=== PATIENT | female | born 1960 | race Caucasian/White ===

== ENCOUNTER → 2016-03-27 | Outpatient (CLI) | payer OTHER ==
[~2016-03-27] MED LIST: AMT100 PO; CALC600T9 PO; CPROT OTR; DOCU100C31 PO; GABA-113 PO; IBUP-1277 PO; LACT10SO17 PO; LIRA18IN SQ; LISI5TAB3 PO; METF1000 PO; MULTTAB58 PO; NADO20TA PO; NAPR1TAB9 PO; NUTR1TAB PO; NYST80OI TOP; OMEG1CAP81 PO; OMEP40CA PO; POTA2TAB2 PO; SIMV10TA2 PO; TAPE1TAB10 PO; TRAM-10 PO; TURM1CAP4 PO
[2016-03-27 17:25] LABS: BASO % 0.4 %; BASO ABS # 0.02 K/uL (0-0.2); COMPLETE YES; EOS % 1.4 %; HEMATOCRIT 35.3 % (37-47); IG% 0.2 %; LYMPH % 20.7 %; LYMPH ABS # 1.16 K/uL (1.2-3.4); MEAN CELL VOLUME 90.5 fL (80-100); MEAN CORPUSCULAR HEMOGLOBIN 31.3 pg (25-34); MEAN CORPUSCULAR HGB CONC 34.6 g/dl (32-36); MEAN PLATELET VOLUME 10.3 fL (7.4-10.4); MONO % 5.9 %; NEUT % 71.4 %; PLATELET COUNT 120 K/uL (130-400)
== END | disposition home or self-care (01) ==
LOC: C.LABPVFM 14:38
PROVIDERS: ATTEND Nurse Practitioner
DX: D64.9 Anemia, unspecified (principal)

== ENCOUNTER → 2016-04-28 | Outpatient (CLI) | payer OTHER ==
[2016-04-28 13:16] LABS: ALB/GLOB RATIO 0.4 (0.9-2); ALT/SGPT 44 U/L (12-78); AST/SGOT 29 U/L (15-37); BLOOD UREA NITROGEN 8 mg/dl (7-18); BUN/CREATININE RATIO 11.9 (10-20); CALCIUM 8.7 mg/dl (8.5-10.1); CARBON DIOXIDE 27 mmol/L (21-32); CHLORIDE 105 mmol/L (98-107); CREATININE 0.64 mg/dl (0.60-1.20); GLUCOSE 136 mg/dl (70-99); POTASSIUM 3.9 mmol/L (3.5-5.1); SODIUM 141 mmol/L (136-145)
[2016-04-28 13:17] LABS: ALKALINE PHOSPHATASE 273 U/L (45-117); CHOLESTEROL 113 mg/dl (0-200); CHOLESTEROL/HDL RATIO 2.5; HDL CHOLESTEROL 45 mg/dl; LDL CHOLESTEROL CALCULATED 54 mg/dl; TRIGLYCERIDES 70 mg/dl (0-150); VERY LOW DENSITY LIPOPROT CALC 14 mg/dl
[2016-04-28 13:31] LABS: ESTIMATED AVERAGE GLUCOSE 154 mg/dl; HA1C FLAG Normal (Normal)
== END | disposition home or self-care (01) ==
LOC: C.LABPVFM 09:07
PROVIDERS: ATTEND Nurse Practitioner
DX: Z86.39 Personal history of other endocrine, nutritional and metabolic disease (principal); E11.9 Type 2 diabetes mellitus without complications; I10 Essential (primary) hypertension

== ENCOUNTER → 2016-05-04 | Outpatient (CLI) | payer OTHER | END | disposition home or self-care (01) | LOC: C.LABPVFM 09:58 | PROVIDERS: ATTEND Nurse Practitioner | DX: D47.2 Monoclonal gammopathy (principal); R53.83 Other fatigue; E53.8 Deficiency of other specified B group vitamins ==

== ENCOUNTER → 2016-10-04 | Outpatient (CLI) | payer OTHER | END | disposition home or self-care (01) | LOC: C.LABPVFM 15:20 | PROVIDERS: ATTEND Nurse Practitioner | DX: D47.2 Monoclonal gammopathy (principal); R53.83 Other fatigue; E53.8 Deficiency of other specified B group vitamins ==

== ENCOUNTER → 2017-01-17 | Day surgery (SDC) | payer OTHER ==
[2017-01-09 12:55] VITALS: Ht 170.2 cm; Wt 88.2 kg
[~2017-01-17] VITALS: Ht 170.2 cm; Wt 88.2 kg
[~2017-01-17] MED LIST changes: +BEE POLLEN PO; -CPROT OTR; +FENTANYL CITRATE INJ 50 MCG/1 ML 2 ML VIAL ONE; -IBUP-1277 PO; -LACT10SO17 PO; +LIDOCAINE HCL 2% 2 ML VIAL (20MG/ML) ONE; +LIRA18IN PO; -LIRA18IN SQ; -LISI5TAB3 PO; +MIDAZOLAM HCL 1 MG/ML 2ML VIAL ONE; -NADO20TA PO; -NAPR1TAB9 PO; -NUTR1TAB PO; -NYST80OI TOP; -OMEG1CAP81 PO; +OMEGCAP2 PO; -OMEP40CA PO; +OMEP40CA41 PO; -POTA2TAB2 PO; +POTAPOW29 PO; +PROPOFOL IV EMULSION 10 MG/ML 20 ML VIAL IV ONE; -SIMV10TA2 PO; +SODIUM CHLORIDE 0.9% 500ML 500 ML IV ONE; -TAPE1TAB10 PO; +TAPE1TAB11 PO; -TURM1CAP4 PO
--- NOTE | 2017-01-17 09:16 | Endo History and Physical ---
History & Physical Date of Service: Jan 17, 2017. Chief Complaint: Referring Physician: History of Present Illness 63 yo presenting for f/u of NAFLD cirrhosis for esophageal evaluation-mildly intolerant to beta blockers Past Medical History Atrial Fibrillation, Diabetes, Gastrointestinal Disorder, Reflux, Gynecological Problems, High Cholesterol, Heart Disease, Hypertension, Thyroid Disease, Liver Disease Past Surgical History Hx Cardiac Surgery: Yes (CARDIAC ABLATION, HEART CATH NO STENT) Hx Internal Defibrillator: No Hx Pacemaker: No Hx Abdominal Surgery: Yes (LAPAROSCOPIES, [place] BSO) Hx of Implantable Prosthesis: No Hx Post-Op Nausea and Vomiting: No Hx Cancer Surgery: No Hx Thoracic Surgery: No Hx Orthopedic: No Hx Urinary Tract Surgery: No Family History None Social History Smoking Status: Former Smoker Hx Substance Use: Yes (SEE MED REC) Hx Alcohol Use: No Allergies Coded Allergies: Diltiazem (Verified Allergy, Unknown, rash- per GI/heme/onc note, 01/09/17) Latex1 -Allergic Contact Dermititis (Verified Allergy, Unknown, ITCHY NOSE WATERY EYES., 01/09/17) Sulfa Antibiotics (Verified Allergy, Unknown, SOB, erythema , 01/09/17) Eggs or Egg-derived Products (Verified Adverse Reaction, Mild, occasionally has GI upset , 01/09/17) Adhesives (Verified Adverse Reaction, Unknown, TAPE-REDNESS, 01/09/17) Current Medications Reported Home Medications Medications Dose Route/Sig Max Daily Dose Days Date Category Dose Instructions Nucynta Er (Tapentadol Hcl) 150 Mg Tab 1 Tab PO BID 01/09/17 Reported [Potassium Gluconate] 1 Tab PO HS 01/09/17 Reported Prilosec (Omeprazole) 40 Mg Cap 40 Mg PO QAM 01/09/17 Reported Fish Oil ([place]-3 Fatty Acids) 1 Cap Cap 1 Cap PO QAM 01/09/17 Reported [Bee Pollen] 2 Cap PO QAM 01/09/17 Reported Victoza (Liraglutide) 18 Mg/3 Ml Inj 1.5 Mg PO QPM 01/09/17 Reported Docusate Sodium 100 Mg Cap 2 Cap PO HS PRN 01/17/15 Reported Multivitamin (Multiple Vitamin) 1 Tab Tab 1 Tab PO QAM 01/17/15 Reported Calcium + D (Calcium Carbonate-Vitamin D) 1 Tab Tab 1 Tab PO HS 01/17/15 Reported Ultram (Tramadol HCl) 50 Mg Tab 100 Mg PO HS PRN 11/24/14 Reported Amitriptyline HCl 100 Mg Tab 100 Mg PO HS 11/02/14 Reported Neurontin (Gabapentin) 300 Mg Cap 600 Mg PO HS 11/02/14 Reported Neurontin (Gabapentin) 300 Mg Cap 300 Mg PO BID 02/22/14 Reported TAKE 1 IN MORNING AND 1 AT NOON Glucophage (Metformin Hcl) 1,000 Mg Tab 1,000 Mg PO BID 11/28/11 Reported Vital Signs Weight (Kilograms): 88.18 Height (Feet): 5 Height (Inches): 7 Physical Exam General Appearance: WD/WN, no apparent distress Respiratory/Chest: Respiratory effort: no dyspnea Auscultation: breath sounds normal Cardiovascular: Apical Impulse: not displaced Heart Auscultation: RRR, normal S1 Abdomen: Bowel Sounds: normal Inspection & Palpation: soft, non-distended Assessment and Plan 56 yo presenting for EGD for variceal evaluation-possible banding
[2017-01-17 09:17] VITALS: TEMP 36.9
--- NOTE | 2017-01-17 10:33 | Anesthesiology Progress Note ---
Anesthesia Post Op Note Date & Time Jan 17, 2017 at 10:33 Vital Signs Pain Intensity: 0 Vital Signs Past 12 Hours Date Time Temp Pulse Resp B/P (MAP) Pulse Ox O2 Delivery O2 Flow Rate FiO2 01/17/17 10:22 67 13 115/75 (88) 95 Mask 10 01/17/17 09:17 36.9 78 20 143/87 (105) 98 Room Air Notes Mental Status: alert / awake / arousable, participated in evaluation Pt Amnestic to Procedure: Yes Nausea / Vomiting: adequately controlled Pain: adequately controlled Airway Patency, RR, SpO2: stable & adequate BP & HR: stable & adequate Hydration State: stable & adequate Anesthetic Complications: no major complications apparent
--- NOTE | 2017-01-17 10:50 | GI REPORT ---
Procedure Date: 01/17/2017 9:52 AM Procedure: Upper GI endoscopy Indications: Cirrhosis with suspected esophageal varices Medicines: General Anesthesia Complications: No immediate complications. Estimated blood loss: None. Estimated Blood Loss: Estimated blood loss: none. Procedure: Pre-Anesthesia Assessment: - Pre-Anesthesia Assessment: - Prior to the procedure, a History and Physical was performed, and patient medications, allergies and sensitivities were reviewed. The patient's tolerance of previous anesthesia was reviewed. Please see [email or web address] for complete details. - The risks and benefits of the procedure and the sedation options and risks were discussed with the patient. All questions were answered and informed consent was obtained. - Patient identification and proposed procedure were verified prior to the procedure by the physician and the nurse. The procedure was verified in the pre-procedure area in the procedure room. After obtaining informed consent, the endoscope was passed carefully and meticuously under direct vision and only advanced when the lumen was clearly identified, C02 insuflation was utilized throughout the entirity of the procedure. Throughout the procedure, the patient's blood pressure, pulse, and oxygen saturations were monitored continuously. After obtaining informed consent, the endoscope was passed under direct vision. Throughout the procedure, the patient's blood pressure, pulse, and oxygen saturations were monitored continuously. The scope was introduced through the mouth, and advanced to the second part of duodenum. The upper GI endoscopy was accomplished without difficulty. The patient tolerated the procedure well. Findings: Large (> 5 mm) varices were found in the middle third of the esophagus and in the lower third of the esophagus. Banding was going to be performed, however, she had thick milkshake consistency in the upper esophags and oropharynx, due to aspiration risk procedure was aborted. Portal hypertensive gastropathy was found in the entire examined stomach. The examined duodenum was normal. Impression: - Large (> 5 mm) esophageal varices. - Portal hypertensive gastropathy. - Normal examined duodenum. - No specimens collected. Recommendation: - Discharge patient to home (with escort). - Repeat the upper endoscopy in 1 week for endoscopic band ligation. - Clear liquid diet only the day prior please. Ricardo Irizarry MD 01/17/2017 10:50:15 AM This report has been signed electronically. Note Initiated On: 01/17/2017 9:52 AM I attest to the content of the Intraoperative Record and orders documented therein, exceptions below
[2017-01-17 10:52] VITALS: BP 125/74; PULSE 70; O2SAT 95
--- NOTE | 2017-01-17 10:54 | Discharge Instructions ---
Endoscopy Patient Instructions Date / Procedure(s) Performed Jan 17, 2017. EGD Allergy Information Coded Allergies: Diltiazem (Verified Allergy, Unknown, rash- per GI/heme/onc note, 01/09/17) Latex1 -Allergic Contact Dermititis (Verified Allergy, Unknown, ITCHY NOSE WATERY EYES., 01/09/17) Sulfa Antibiotics (Verified Allergy, Unknown, SOB, erythema , 01/09/17) Eggs or Egg-derived Products (Verified Adverse Reaction, Mild, occasionally has GI upset , 01/09/17) Adhesives (Verified Adverse Reaction, Unknown, TAPE-REDNESS, 01/09/17) Discharge Date / Findings Jan 17, 2017. Findings: Large (> 5 mm) varices were found in the middle third of the esophagus and in the lower third of the esophagus. Banding was going to be performed, however, she had thick milkshake consistency in the upper esophags and oropharynx, due to aspiration risk procedure was aborted. Portal hypertensive gastropathy was found in the entire examined stomach. The examined duodenum was normal. Recommendation: - Discharge patient to home (with escort). - Repeat the upper endoscopy in 1 week for endoscopic band ligation. - Clear liquid diet only the day prior please. Provider Instructions Activity Restrictions - No exercising or heavy lifting for 24 hours. - Do not drink alcohol the day of the procedure. - Do not drive a car or operate machinery until the day after the procedure. - Do not make any important decisions or sign important papers in 24 hours after the procedure. Following Day: - Return to full activity which may include returning to work/school. Diet Start your diet with liquids and light foods (jello, soup, juice, toast). Then eat your usual diet if not nauseated. Treatment For Common After Affects For mild abdominal pain, bloating, or excessive gas: - Rest - Eat lightly - Lie on right side Follow-Up Information Follow-up with [facility] as scheduled Anesthesia Information What You Should Know You have had a procedure that required some medicine to reduce anxiety and discomfort. This treatment is called moderate sedation. After receiving the treatment, you may be sleepy, but you will be able to breathe on your own. The effects of the treatment may last for several hours. Follow these instructions along with Activity/Diet recommendations noted above: * Do NOT do anything where dizziness or clumsiness would be dangerous. * Rest quietly at home today, then you can be up and about tomorrow. * Have a responsible person stay with you the rest of today. * You may have had an I.V. today. If so, you may take the dressing off later today. Recommendations Call your doctor if: * Trouble breathing * Continuous vomiting for more than 24 hours * Temperature above 101 degrees * Severe abdominal pain or bloating * Pain not relieved by pain medicine ordered * There is increased drainage or redness from any incision * A large amount of rectal bleeding greater than 2-3 tablespoons. (If you had a polyp/s removed or have hemorrhoids, a small amount of blood - from the rectum is to be expected.) * You have any unanswered questions or concerns. IN THE EVENT OF A SERIOUS EMERGENCY, GO TO THE NEAREST EMERGENCY ROOM Your discharge instructions were prepared by provider Ricardo Irizarry. Patient Instructions Signature Page Rachel Miki Patient (or Guardian) Signature/Date: I have read and understand the instructions given to me by my caregivers. Caregiver/RN/Doctor Signature/Date: The above-named patient and/or guardian has received patient instructions on this date. + Original Patient Signature Page (only) stays with chart. Please make copy for patient.
== END | disposition home or self-care (01) ==
LOC: C.GI 08:40
PROVIDERS: ATTEND Internal Medicine
DX: K74.60 Unspecified cirrhosis of liver (principal); I85.00 Esophageal varices without bleeding; K31.89 Other diseases of stomach and duodenum; I10 Essential (primary) hypertension; E11.9 Type 2 diabetes mellitus without complications; K21.9 Gastro-esophageal reflux disease without esophagitis; I48.91 Unspecified atrial fibrillation; E78.00 Pure hypercholesterolemia, unspecified; Z88.2 Allergy status to sulfonamides; Z87.891 Personal history of nicotine dependence; Z91.040 Latex allergy status; Z91.012 Allergy to eggs; Z79.899 Other long term (current) drug therapy

== ENCOUNTER → 2017-01-24 | Day surgery (SDC) | payer OTHER ==
[2017-01-22 07:43] VITALS: Ht 170.2 cm; Wt 88.2 kg
[~2017-01-24] VITALS: Ht 170.2 cm; Wt 88.2 kg
[~2017-01-24] MED LIST changes: +ATROPINE SULFATE 0.1 MG/ML 5ML SYR IV PRN; +EpHEDrine SULFATE INJ 50 MG/ML AMP IV PRN; +ONDANSETRON INJ 2 MG/ML 2 ML VIAL ONE; -SODIUM CHLORIDE 0.9% 500ML 500 ML IV ONE
[2017-01-24 10:56] VITALS: TEMP 36.8
--- NOTE | 2017-01-24 11:12 | Endo History and Physical ---
History & Physical Date of Service: Jan 24, 2017. Chief Complaint: Varicies Referring Physician: KALEY Varela History of Present Illness varices screening Past Medical History Atrial Fibrillation, Diabetes, Gastrointestinal Disorder, Reflux, Gynecological Problems, High Cholesterol, Heart Disease, Hypertension, Thyroid Disease, Liver Disease Past Surgical History Hx Cardiac Surgery: Yes (CARDIAC ABLATION, HEART CATH NO STENT) Hx Internal Defibrillator: No Hx Pacemaker: No Hx Abdominal Surgery: Yes (LAPAROSCOPIES, [facility] BSO) Hx of Implantable Prosthesis: No Hx Post-Op Nausea and Vomiting: No Hx Cancer Surgery: No Hx Thoracic Surgery: No Hx Orthopedic: No Hx Urinary Tract Surgery: No Family History None Social History Smoking Status: Former Smoker Hx Substance Use: No Hx Alcohol Use: No Allergies Coded Allergies: Diltiazem (Verified Allergy, Unknown, rash- per GI/heme/onc note, 01/22/17 ) Latex1 -Allergic Contact Dermititis (Verified Allergy, Unknown, ITCHY NOSE WATERY EYES., 01/22/17) Sulfa Antibiotics (Verified Allergy, Unknown, SOB, erythema , 01/22/17) Eggs or Egg-derived Products (Verified Adverse Reaction, Mild, occasionally has GI upset , 01/22/17) Adhesives (Verified Adverse Reaction, Unknown, TAPE-REDNESS, 01/22/17) Current Medications Reported Home Medications Medications Dose Route/Sig Max Daily Dose Days Date Category Dose Instructions Nucynta Er (Tapentadol Hcl) 150 Mg Tab 1 Tab PO BID 01/09/17 Reported [Potassium Gluconate] 1 Tab PO HS 01/09/17 Reported Prilosec (Omeprazole) 40 Mg Cap 40 Mg PO QAM 01/09/17 Reported Fish Oil ([place]-3 Fatty Acids) 1 Cap Cap 1 Cap PO QAM 01/09/17 Reported [Bee Pollen] 2 Cap PO QAM 01/09/17 Reported Victoza (Liraglutide) 18 Mg/3 Ml Inj 1.5 Mg PO QPM 01/09/17 Reported Docusate Sodium 100 Mg Cap 2 Cap PO HS PRN 01/17/15 Reported Multivitamin (Multiple Vitamin) 1 Tab Tab 1 Tab PO QAM 01/17/15 Reported Calcium + D (Calcium Carbonate-Vitamin D) 1 Tab Tab 1 Tab PO HS 01/17/15 Reported Ultram (Tramadol HCl) 50 Mg Tab 100 Mg PO HS PRN 11/24/14 Reported Amitriptyline HCl 100 Mg Tab 100 Mg PO HS 11/02/14 Reported Neurontin (Gabapentin) 300 Mg Cap 600 Mg PO HS 11/02/14 Reported Neurontin (Gabapentin) 300 Mg Cap 300 Mg PO BID 02/22/14 Reported TAKE 1 IN MORNING AND 1 AT NOON Glucophage (Metformin Hcl) 1,000 Mg Tab 1,000 Mg PO BID 11/28/11 Reported Vital Signs Weight (Kilograms): 88.18 Height (Feet): 5 Height (Inches): 7 Date Time Temp Pulse Resp B/P (MAP) Pulse Ox O2 Delivery O2 Flow Rate FiO2 01/24/17 10:56 36.8 75 20 140/91 (107) 97 Room Air Physical Exam General Appearance: no apparent distress Respiratory/Chest: Auscultation: breath sounds normal Cardiovascular: Heart Auscultation: RRR Abdomen: Inspection & Palpation: soft Liver: non-tender Assessment and Plan stable for EGD.
--- NOTE | 2017-01-24 11:33 | Discharge Instructions ---
Endoscopy Patient Instructions Date / Procedure(s) Performed Jan 24, 2017. EGD Allergy Information Coded Allergies: Diltiazem (Verified Allergy, Unknown, rash- per GI/heme/onc note, 01/22/17 ) Latex1 -Allergic Contact Dermititis (Verified Allergy, Unknown, ITCHY NOSE WATERY EYES., 01/22/17) Sulfa Antibiotics (Verified Allergy, Unknown, SOB, erythema , 01/22/17) Eggs or Egg-derived Products (Verified Adverse Reaction, Mild, occasionally has GI upset , 01/22/17) Adhesives (Verified Adverse Reaction, Unknown, TAPE-REDNESS, 01/22/17) Discharge Date / Findings Jan 24, 2017. Grade I varices seen. Provider Instructions Activity Restrictions - No exercising or heavy lifting for 24 hours. - Do not drink alcohol the day of the procedure. - Do not drive a car or operate machinery until the day after the procedure. - Do not make any important decisions or sign important papers in 24 hours after the procedure. Following Day: - Return to full activity which may include returning to work/school. Diet Start your diet with liquids and light foods (jello, soup, juice, toast). Then eat your usual diet if not nauseated. Treatment For Common After Affects For mild abdominal pain, bloating, or excessive gas: - Rest - Eat lightly - Lie on right side Follow-Up Information Follow-up with KALEY Varela as scheduled Anesthesia Information What You Should Know You have had a procedure that required some medicine to reduce anxiety and discomfort. This treatment is called moderate sedation. After receiving the treatment, you may be sleepy, but you will be able to breathe on your own. The effects of the treatment may last for several hours. Follow these instructions along with Activity/Diet recommendations noted above: * Do NOT do anything where dizziness or clumsiness would be dangerous. * Rest quietly at home today, then you can be up and about tomorrow. * Have a responsible person stay with you the rest of today. * You may have had an I.V. today. If so, you may take the dressing off later today. Recommendations Call your doctor if: * Trouble breathing * Continuous vomiting for more than 24 hours * Temperature above 101 degrees * Severe abdominal pain or bloating * Pain not relieved by pain medicine ordered * There is increased drainage or redness from any incision * A large amount of rectal bleeding greater than 2-3 tablespoons. (If you had a polyp/s removed or have hemorrhoids, a small amount of blood - from the rectum is to be expected.) * You have any unanswered questions or concerns. IN THE EVENT OF A SERIOUS EMERGENCY, GO TO THE NEAREST EMERGENCY ROOM Your discharge instructions were prepared by provider Tim Batista. Patient Instructions Signature Page Rachel Miki Patient (or Guardian) Signature/Date: I have read and understand the instructions given to me by my caregivers. Caregiver/RN/Doctor Signature/Date: The above-named patient and/or guardian has received patient instructions on this date. + Original Patient Signature Page (only) stays with chart. Please make copy for patient.
--- NOTE | 2017-01-24 11:57 | Anesthesiology Progress Note ---
Anesthesia Post Op Note Date & Time Jan 24, 2017 at 11:57 Vital Signs Pain Intensity: 0 Vital Signs Past 12 Hours Date Time Temp Pulse Resp B/P (MAP) Pulse Ox O2 Delivery O2 Flow Rate FiO2 01/24/17 11:37 73 16 124/73 (90) 98 Room Air 01/24/17 10:56 36.8 75 20 140/91 (107) 97 Room Air Notes Mental Status: alert / awake / arousable, participated in evaluation Pt Amnestic to Procedure: Yes Nausea / Vomiting: adequately controlled Pain: adequately controlled Airway Patency, RR, SpO2: stable & adequate BP & HR: stable & adequate Hydration State: stable & adequate Anesthetic Complications: no major complications apparent
[2017-01-24 12:06] VITALS: BP 136/80; PULSE 75; O2SAT 96
--- NOTE | 2017-01-25 00:23 | GI REPORT ---
Procedure Date: 01/24/2017 11:06 AM Procedure: Upper GI endoscopy Indications: Portal hypertension rule out esophageal varices, Abnormal ultrasound of the GI tract Medicines: See the Anesthesia note for documentation of the administered medications Complications: No immediate complications. Estimated Blood Loss: Estimated blood loss: none. Procedure: Pre-Anesthesia Assessment: - Prior to the procedure, a History and Physical was performed, and patient medications, allergies and sensitivities were reviewed. The patient's tolerance of previous anesthesia was reviewed. - The risks and benefits of the procedure and the sedation options and risks were discussed with the patient. All questions were answered and informed consent was obtained. - Patient identification and proposed procedure were verified prior to the procedure by the physician and the nurse. The procedure was verified in the pre-procedure area. - Pre-procedure physical examination revealed no contraindications to sedation. - After reviewing the risks and benefits, the patient was deemed in satisfactory condition to undergo the procedure. After obtaining informed consent, the endoscope was passed under direct vision. Throughout the procedure, the patient's blood pressure, pulse, and oxygen saturations were monitored continuously. The scope was introduced through the mouth, and advanced to the third part of duodenum. The upper GI endoscopy was accomplished without difficulty. The patient tolerated the procedure well. Findings: Grade I varices were found in the lower third of the esophagus. Mild portal hypertensive gastropathy was found in the gastric body. The examined duodenum was normal. The cardia and gastric fundus were normal on retroflexion. Impression: - Grade I esophageal varices. - Portal hypertensive gastropathy. - Normal examined duodenum. - No specimens collected. Recommendation: - Discharge patient to home. - Follow up with regular providers. - Consider primary prophylaxis with Beta valentino if not already done and not contraindicated. Tim Batista M.D. Tim Batista MD 01/24/2017 11:33:01 AM This report has been signed electronically. Note Initiated On: 01/24/2017 11:06 AM I attest to the content of the Intraoperative Record and orders documented therein, exceptions below
== END | disposition home or self-care (01) ==
LOC: C.GI 10:31
PROVIDERS: ATTEND Nurse Practitioner
DX: K76.6 Portal hypertension (principal); I85.10 Secondary esophageal varices without bleeding; I48.91 Unspecified atrial fibrillation; K21.9 Gastro-esophageal reflux disease without esophagitis; E78.00 Pure hypercholesterolemia, unspecified; I10 Essential (primary) hypertension; Z90.710 Acquired absence of both cervix and uterus; Z87.891 Personal history of nicotine dependence; Z83.3 Family history of diabetes mellitus

== ENCOUNTER → 2017-02-23 | Outpatient (CLI) | payer OTHER ==
[~2017-02-23] MED LIST changes: -ATROPINE SULFATE 0.1 MG/ML 5ML SYR IV PRN; -EpHEDrine SULFATE INJ 50 MG/ML AMP IV PRN; -FENTANYL CITRATE INJ 50 MCG/1 ML 2 ML VIAL ONE; -LIDOCAINE HCL 2% 2 ML VIAL (20MG/ML) ONE; -MIDAZOLAM HCL 1 MG/ML 2ML VIAL ONE; -ONDANSETRON INJ 2 MG/ML 2 ML VIAL ONE; -PROPOFOL IV EMULSION 10 MG/ML 20 ML VIAL IV ONE
[2017-02-23 13:13] LABS: BLOOD UREA NITROGEN 7 mg/dl (7-18); BUN/CREATININE RATIO 9.5 (10-20); CALCIUM 8.5 mg/dl (8.5-10.1); CARBON DIOXIDE 30 mmol/L (21-32); CHLORIDE 100 mmol/L (98-107); GLUCOSE 159 mg/dl (70-99); POTASSIUM 3.9 mmol/L (3.5-5.1); SODIUM 134 mmol/L (136-145)
[2017-02-23 13:16] LABS: CHOLESTEROL 126 mg/dl (0-200); CHOLESTEROL/HDL RATIO 3.2; HDL CHOLESTEROL 39 mg/dl; LDL CHOLESTEROL CALCULATED 73 mg/dl; TRIGLYCERIDES 69 mg/dl (0-150); VERY LOW DENSITY LIPOPROT CALC 14 mg/dl
[2017-02-23 13:29] LABS: ESTIMATED AVERAGE GLUCOSE 243 mg/dl; HA1C FLAG Normal (Normal)
== END | disposition home or self-care (01) ==
LOC: C.LABPVFM 10:09
PROVIDERS: ATTEND Nurse Practitioner
DX: I10 Essential (primary) hypertension (principal); E78.5 Hyperlipidemia, unspecified; E11.9 Type 2 diabetes mellitus without complications

== ENCOUNTER 2017-05-15 21:30 | Inpatient (IN) | payer OTHER ==
[~2017-05-15] VITALS: Ht 170.2 cm; Wt 87.9 kg
[2017-05-15] MEDS ORDERED: ONDANSETRON INJ 2 MG/ML 2 ML VIAL IV STA (21:42)
[2017-05-15] MEDS ORDERED: SODIUM CHLORIDE 0.9% 1000ML 1,000 ML IV STA ×2 (21:42→23:08)
--- NOTE | 2017-05-15 22:15 | DIAGNOSTIC IMAGING REPORT ---
SINGLE VIEW CHEST CLINICAL HISTORY: Generalized abdominal pain. FINDINGS: An AP, portable, upright chest radiograph is compared to study dated 11/06/2014 and correlated with chest CT dated 01/18/2015. The examination is degraded by portable technique and patient rotation. The heart is top normal for projection. The mediastinal contour is within normal limits. The lungs and pleural spaces are clear. No pneumothorax is seen. The bony thorax is grossly intact. IMPRESSION: No active disease in the chest. Electronically signed by: Ronny Powell M.D. 05/15/2017 10:14 PM Dictated Date/Time: 05/15/2017 10:13 PM
[2017-05-15 22:20] LABS: HEMATOCRIT 36.1 % (37-47); HEMOGLOBIN 12.3 g/dL (12.0-16.0); MEAN CELL VOLUME 87.2 fL (80-100); MEAN CORPUSCULAR HEMOGLOBIN 29.7 pg (25-34); MEAN CORPUSCULAR HGB CONC 34.1 g/dl (32-36); MEAN PLATELET VOLUME 10.3 fL (7.4-10.4); PLATELET COUNT 122 K/uL (130-400); RED CELL DISTRIBUTION WIDTH CV 14.2 % (11.5-14.5); RED CELL DISTRIBUTION WIDTH SD 45.5 fL (36.4-46.3); WHITE BLOOD COUNT 14.49 K/uL (4.8-10.8)
[2017-05-15 22:30] LABS: INR 1.1 (0.9-1.1); PTT PATIENT 24.8 SECONDS (21.0-31.0)
[2017-05-15] MEDS ORDERED: POTA1TAB PO (22:33)
[2017-05-15] MEDS ORDERED: BEE1CAP PO (22:33)
[2017-05-15] MEDS ORDERED: TAPE75TA PO (22:33)
[2017-05-15 22:40] LABS: BASO % 0.1 %; BASO ABS # 0.02 K/uL (0-0.2); EOS % 0.6 %; EOS ABS # 0.08 K/uL (0-0.5); IG# 0.03 K/uL (0.00-0.02); LYMPH % 4.8 %; LYMPH ABS # 0.69 K/uL (1.2-3.4); MONO % 6.1 %; MONO ABS # 0.88 K/uL (0.11-0.59); NEUT % 88.2 %; NEUT ABS # 12.79 K/uL (1.4-6.5)
--- NOTE | 2017-05-15 22:43 | DIAGNOSTIC IMAGING REPORT ---
CT SCAN OF THE ABDOMEN AND PELVIS WITHOUT IV CONTRAST CLINICAL HISTORY: Generalized abdominal pain. Vomiting. COMPARISON STUDY: Abdominal CT dated 01/18/2006. TECHNIQUE: CT scan of the abdomen and pelvis is performed from the lung bases to the proximal femora. Images are reviewed in the axial, sagittal, and coronal planes. IV contrast was not administered for this examination as per the referring clinician. Note that the examination was performed in suboptimal fashion without oral and IV contrast. A dose lowering technique was utilized adhering to the principles of ALARA. CT DOSE: 778.70 mGy.cm FINDINGS: Lung bases: The heart is normal in size and without pericardial effusion. There are coronary artery calcifications. Small calcified granulomas are seen in the left lower lobe. The lung bases are otherwise clear. There is a small hiatal hernia. Liver: The unenhanced liver is enlarged, measuring 20.7 cm in length. The liver is stroke and morphology. There is mild nodularity of the surface contour, as well as hypertrophy of the left lobe and caudate. There is no intrahepatic biliary ductal dilatation. There is recanalization of the periumbilical vein. Perigastric varices are noted. Gallbladder: Unremarkable. Spleen: The Spleen is enlarged, measuring 15.2 cm in length. Pancreas: The unenhanced pancreas is atrophic and grossly unremarkable. Adrenal glands: Unremarkable. Kidneys: The unenhanced kidneys demonstrate mild cortical atrophy and are without hydronephrosis. There are no renal calculi identified. There is no evidence of contour deforming renal mass lesion. There is a retroverted left renal vein. Abdominal vasculature: The abdominal aorta is normal in course and caliber. Bowel: The small bowel and colon are normal in course and caliber. The appendix is normal as visualized. Peritoneum/retroperitoneum: There is no intraperitoneal free air. There is inflammatory stranding and fluid identified within the right retroperitoneal space. Fluid is seen tracking lung the right paracolic gutter. Trace fluid is also seen in the left paracolic gutter. Lymphadenopathy: None. Pelvic viscera: The bladder is normal as visualized. The uterus is surgically absent. No adnexal lesion is seen. A large lipoma is noted in the left thigh musculature. Skeletal structures: The Skeletal structures are osteopenic. There is mild lumbosacral spondylosis. No lytic or blastic lesions are seen. IMPRESSION: 1. Significantly suboptimal examination without oral and IV contrast. 2. There is nonspecific inflammatory change and fluid identified in the right retroperitoneal space, with fluid seen tracking in the right paracolic gutter. This is of indeterminant etiology. The closest structures are the duodenum and the ascending colon, and this could potentially be related to duodenitis, ulcer disease, or possibly colonic diverticulitis. This process appears to be separate from the right kidney and pancreas. No intraperitoneal free air is seen and there is no evidence of abscess. Clinical correlation will be essential. 3. The liver is enlarged and appears cirrhotic in morphology. There is recanalization of the periumbilical vein, splenomegaly, and perigastric varices. 4. Additional findings as above. Electronically signed by: Ronny Powell M.D. 05/15/2017 10:41 PM Dictated Date/Time: 05/15/2017 10:23 PM
[2017-05-15] MEDS ORDERED: FAMOTIDINE IV INJ 20 MG in DEXTROSE 5% 100ML 100 ML IV STA (22:47)
[2017-05-15] MEDS ORDERED: PANTOprazole INJ 40 MG in SYRINGE 0 ML IV ONE (23:00)
[2017-05-15 23:01] LABS: ALKALINE PHOSPHATASE 240 U/L (45-117); ALT/SGPT 31 U/L (12-78); AST/SGOT 32 U/L (15-37); BLOOD UREA NITROGEN 8 mg/dl (7-18); CALCIUM 8.9 mg/dl (8.5-10.1); CARBON DIOXIDE 28 mmol/L (21-32); CKMB 0.8 ng/ml (0.5-3.6); CREATININE 0.79 mg/dl (0.60-1.20); GLUCOSE 406 mg/dl (70-99); LIPASE 116 U/L (73-393); POTASSIUM 3.2 mmol/L (3.5-5.1); SODIUM 128 mmol/L (136-145); TOTAL PROTEIN 10.6 gm/dl (6.4-8.2)
[2017-05-15] MEDS ORDERED: PIPERACILLIN/TAZOBACTAM 4.5 GM/100ML D5W IV STA (23:08)
[2017-05-15] MEDS ORDERED: MAGNESIUM SULFATE 1GM / D5W 1 GM BAG IV STA (23:08)
--- NOTE | 2017-05-15 23:14 | EMERGENCY ROOM VISIT NOTE ---
History Report prepared by Marshall: Gail Naranjo Under the Supervision of: Dr. Juan Carlos Maradiaga D.O. First contact with patient: 21:32 Chief Complaint: ABDOMINAL PAIN Stated Complaint: UPPER GASTRIC PAIN, VOMITING, DIARRHEA History of Present Illness The patient is a 56 year old female who presents to the Emergency Room with complaints of persistent upper abdominal pain starting 3 hours ago. She presents to the ED by EMS. The patient ate dinner today around [id number]. At 1830, she started having vomiting and diarrhea. She was diaphoretic. She currently reports chills. She has never had these symptoms before. She reports upper abdominal cramping. She denies any blood in her vomit, melena, or hematochezia. The patient has a history of type 1 diabetes, nonalcoholic cirrhosis, and hysterectomy. She still has her gallbladder. She is a former smoker. She denies any alcohol use. She has not come into contact with anyone who has had similar symptoms. She denies any recent antibiotic use. Source of History: patient Onset: 3 hours ago Position: abdomen (upper) Quality: cramping Timing: other (persistent) Associated Symptoms: + chills, + diaphoresis, + nausea, + vomiting, + diarrhea, No melena, No hematochezia Review of Systems See HPI for pertinent positives & negatives. A total of 10 systems reviewed and were otherwise negative. Past Medical & Surgical Medical Problems: (1) Ablation (2) Benign hypertension (3) Cardiac catheterization (4) Diabetes (5) Heart disease (6) Hysterectomy (7) SVT Family History Cancer Diabetes mellitus Heart disease Hypertension Kidney disease Kidney stones Seizures Social History Smoking Status: Former Smoker Alcohol Use: none Marital Status: Housing Status: lives with significant other Occupation Status: employed Current/Historical Medications Scheduled Amitriptyline HCl (Amitriptyline HCl), 100 MG PO HS Bee Pollen (Bee Pollen), 2 CAP PO QAM Calcium Carbonate-Vitamin D (Calcium + D), 1 TAB PO HS Gabapentin (Neurontin), 300 MG PO BID Gabapentin (Neurontin), 600 MG PO HS Liraglutide (Victoza), 1.8 MG PO QPM Metformin Hcl (Glucophage), 1,000 MG PO BID Multiple Vitamin (Multivitamin), 1 TAB PO QAM [place]-3 Fatty Acids (Fish Oil), 1 CAP PO QAM Omeprazole (Prilosec), 40 MG PO QAM Potassium Gluconate (Potassium Gluconate), 1 TAB PO HS Tapentadol Hcl (Nucynta), 75 MG PO QID Scheduled PRN Docusate Sodium (Docusate Sodium), 2 CAP PO HS PRN for Constipation Tramadol (Ultram), 100 MG PO HS PRN for Pain Allergies Coded Allergies: Diltiazem (Verified Allergy, Unknown, rash- per GI/heme/onc note, 05/15/17) Latex1 -Allergic Contact Dermititis (Verified Allergy, Unknown, ITCHY NOSE WATERY EYES., 05/15/17) Sulfa Antibiotics (Verified Allergy, Unknown, SOB, erythema , 05/15/17) Eggs or Egg-derived Products (Verified Adverse Reaction, Mild, occasionally has GI upset , 05/15/17) Adhesives (Verified Adverse Reaction, Unknown, TAPE-REDNESS, 05/15/17) Physical Exam Vital Signs Date Time Temp Pulse Resp B/P (MAP) Pulse Ox O2 Delivery O2 Flow Rate FiO2 05/15/17 23:46 92 21 95 05/15/17 23:31 90 99/59 05/15/17 23:16 90 20 96 05/15/17 23:01 92 27 108/67 96 05/15/17 22:46 89 16 05/15/17 22:41 103/74 05/15/17 21:45 89 15 99 05/15/17 21:40 81 17 98 05/15/17 21:39 81 05/15/17 21:35 88 18 98 Room Air 05/15/17 21:34 36.6 83 25 178/97 96 Room Air 05/15/17 21:33 178/97 Physical Exam GENERAL: Patient is awake, alert, somewhat anxious appearing. EYES: The conjunctivae are clear. The pupils are round and reactive. EARS, NOSE, MOUTH AND THROAT: The nose is without any evidence of any deformity. Mucous membranes are dry tongue is midline NECK: The neck is nontender and supple. RESPIRATORY: Normal respiratory effort is noted there is no evidence of wheezing rhonchi or rales CARDIOVASCULAR: Regular rate and rhythm noted there no murmurs rubs or gallops normal S1 normal S2 GASTROINTESTINAL: The abdomen is mildly distended, but soft. There was no guarding or rigidity noted. There was upper abdominal tenderness to palpation. MUSCULOSKELETAL/EXTREMITIES: There is no evidence of gross deformity full range of motion is noted in the hips and shoulders SKIN: There is no obvious evidence of any rash. There are no petechiae, pallor or cyanosis noted. NEUROLOGIC: Patient is awake alert and oriented x3 strength is symmetric patellar reflexes are 2+ bilaterally Medical Decision & Procedures ER Provider Diagnostic Interpretation: X-ray results as stated below per interpretation by me and the radiologist. Radiology results as stated below per my review and radiologist interpretation: SINGLE VIEW CHEST CLINICAL HISTORY: Generalized abdominal pain. FINDINGS: An AP, portable, upright chest radiograph is compared to study dated 11/06/2014 and correlated with chest CT dated 01/18/2015. The examination is degraded by portable technique and patient rotation. The heart is top normal for projection. The mediastinal contour is within normal limits. The lungs and pleural spaces are clear. No pneumothorax is seen. The bony thorax is grossly intact. IMPRESSION: No active disease in the chest. Electronically signed by: Ronny Powell M.D. 05/15/2017 10:14 PM Dictated Date/Time: 05/15/2017 10:[address] SCAN OF THE ABDOMEN AND PELVIS WITHOUT IV CONTRAST CLINICAL HISTORY: Generalized abdominal pain. Vomiting. COMPARISON STUDY: Abdominal CT dated 01/18/2006. TECHNIQUE: CT scan of the abdomen and pelvis is performed from the lung bases to the proximal femora. Images are reviewed in the axial, sagittal, and coronal planes. IV contrast was not administered for this examination as per the referring clinician. Note that the examination was performed in suboptimal fashion without oral and IV contrast. A dose lowering technique was utilized adhering to the principles of ALARA. CT DOSE: 778.70 mGy.cm FINDINGS: Lung bases: The heart is normal in size and without pericardial effusion. There are coronary artery calcifications. Small calcified granulomas are seen in the left lower lobe. The lung bases are otherwise clear. There is a small hiatal hernia. Liver: The unenhanced liver is enlarged, measuring 20.7 cm in length. The liver is stroke and morphology. There is mild nodularity of the surface contour, as well as hypertrophy of the left lobe and caudate. There is no intrahepatic biliary ductal dilatation. There is recanalization of the periumbilical vein. Perigastric varices are noted. Gallbladder: Unremarkable. Spleen: The Spleen is enlarged, measuring 15.2 cm in length. Pancreas: The unenhanced pancreas is atrophic and grossly unremarkable. Adrenal glands: Unremarkable. Kidneys: The unenhanced kidneys demonstrate mild cortical atrophy and are without hydronephrosis. There are no renal calculi identified. There is no evidence of contour deforming renal mass lesion. There is a retroverted left renal vein. Abdominal vasculature: The abdominal aorta is normal in course and caliber. Bowel: The small bowel and colon are normal in course and caliber. The appendix is normal as visualized. Peritoneum/retroperitoneum: There is no intraperitoneal free air. There is inflammatory stranding and fluid identified within the right retroperitoneal space. Fluid is seen tracking lung the right paracolic gutter. Trace fluid is also seen in the left paracolic gutter. Lymphadenopathy: None. Pelvic viscera: The bladder is normal as visualized. The uterus is surgically absent. No adnexal lesion is seen. A large lipoma is noted in the left thigh musculature. Skeletal structures: The Skeletal structures are osteopenic. There is mild lumbosacral spondylosis. No lytic or blastic lesions are seen. IMPRESSION: 1. Significantly suboptimal examination without oral and IV contrast. 2. There is nonspecific inflammatory change and fluid identified in the right retroperitoneal space, with fluid seen tracking in the right paracolic gutter. This is of indeterminant etiology. The closest structures are the duodenum and the ascending colon, and this could potentially be related to duodenitis, ulcer disease, or possibly colonic diverticulitis. This process appears to be separate from the right kidney and pancreas. No intraperitoneal free air is seen and there is no evidence of abscess. Clinical correlation will be essential. 3. The liver is enlarged and appears cirrhotic in morphology. There is recanalization of the periumbilical vein, splenomegaly, and perigastric varices. 4. Additional findings as above. Electronically signed by: Ronny Powell M.D. 05/15/2017 10:41 PM Dictated Date/Time: 05/15/2017 10:23 PM Laboratory Results 05/15/17 22:00 Red Blood Count 4.14, Mean Corpuscular Volume 87.2, Mean Corpuscular Hemoglobin 29.7, Mean Corpuscular Hemoglobin Concent 34.1, Mean Platelet Volume 10.3, Neutrophils (%) (Auto) 88.2, Lymphocytes (%) (Auto) 4.8, Monocytes (%) (Auto) 6.1, Eosinophils (%) (Auto) 0.6, Basophils (%) (Auto) 0.1, Neutrophils # (Auto) 12.79, Lymphocytes # (Auto) 0.69, Monocytes # (Auto) 0.88, Eosinophils # (Auto) 0.08, Basophils # (Auto) 0.02 05/15/17 22:00 Test 05/15/17 22:00 05/15/17 23:45 White Blood Count 14.49 K/uL (4.8-10.8) Red Blood Count 4.14 M/uL (4.2-5.4) Hemoglobin 12.3 g/dL (12.0-16.0) Hematocrit 36.1 % (37-47) Mean Corpuscular Volume 87.2 fL (80-100) Mean Corpuscular Hemoglobin 29.7 pg (25-34) Mean Corpuscular Hemoglobin Concent 34.1 g/dl (32-36) Platelet Count 122 K/uL (130-400) Mean Platelet Volume 10.3 fL (7.4-10.4) Neutrophils (%) (Auto) 88.2 % Lymphocytes (%) (Auto) 4.8 % Monocytes (%) (Auto) 6.1 % Eosinophils (%) (Auto) 0.6 % Basophils (%) (Auto) 0.1 % Neutrophils # (Auto) 12.79 K/uL (1.4-6.5) Lymphocytes # (Auto) 0.69 K/uL (1.2-3.4) Monocytes # (Auto) 0.88 K/uL (0.11-0.59) Eosinophils # (Auto) 0.08 K/uL (0-0.5) Basophils # (Auto) 0.02 K/uL (0-0.2) RDW Standard Deviation 45.5 fL (36.4-46.3) RDW Coefficient of Variation 14.2 % (11.5-14.5) Immature Granulocyte % (Auto) 0.2 % Immature Granulocyte # (Auto) 0.03 K/uL (0.00-0.02) Red Blood Cell Morphology Unremarkable Prothrombin Time 11.4 SECONDS (9.0-12.0) Prothromb Time International Ratio 1.1 (0.9-1.1) Activated Partial Thromboplast Time 24.8 SECONDS (21.0-31.0) Partial Thromboplastin Ratio 1.0 Anion Gap 6.0 mmol/L (3-11) Est Creatinine Clear Calc Drug Dose 92.5 ml/min Estimated GFR () 97.7 Estimated GFR (Non- 84.3 BUN/Creatinine Ratio 10.2 (10-20) Calcium Level 8.9 mg/dl (8.5-10.1) Magnesium Level 1.2 mg/dl (1.8-2.4) Total Bilirubin 0.8 mg/dl (0.2-1) Direct Bilirubin 0.3 mg/dl (0-0.2) Aspartate Amino Transf (AST/SGOT) 32 U/L (15-37) Alanine Aminotransferase (ALT/SGPT) 31 U/L (12-78) Alkaline Phosphatase 240 U/L (45-117) Total Creatine Kinase 60 U/L (26-192) Creatine Kinase MB 0.8 ng/ml (0.5-3.6) Creatine Kinase MB Ratio 1.3 (0-3.0) Troponin I < 0.015 ng/ml (0-0.045) Total Protein 10.6 gm/dl (6.4-8.2) Albumin 3.0 gm/dl (3.4-5.0) Lipase 116 U/L (73-393) Beta-Hydroxybutyric Acid 2.75 mg/dL (0.2-2.81) Urine Color YELLOW Urine Appearance CLEAR (CLEAR) Urine pH 6.5 (4.5-7.5) Urine Specific [place] 1.027 (1.000-1.030) Urine Protein NEG (NEG) Urine Glucose (UA) 3+ (NEG) Urine Ketones TRACE (NEG) Urine Occult Blood NEG (NEG) Urine Nitrite NEG (NEG) Urine Bilirubin NEG (NEG) Urine Urobilinogen NEG (NEG) Urine Leukocyte Esterase NEG (NEG) Laboratory results per my review. Medications Administered Medications (Trade) Dose Ordered Sig/Sherry Route Start Time Stop Time Status Last Admin Dose Admin Sodium Chloride 1,000 ml @ 999 mls/hr Q1H1M STAT IV 05/15/17 21:42 05/15/17 22:42 DC 05/15/17 22:04 999 MLS/HR Ondansetron HCl (Zofran Inj) 4 mg NOW STAT IV 05/15/17 21:42 05/15/17 21:43 DC 05/15/17 22:05 4 MG Famotidine 20 mg/ Dextrose 102 ml @ 200 mls/hr ONE STAT IV 05/15/17 22:47 05/15/17 23:17 DC 05/15/17 23:02 200 MLS/HR Pantoprazole Sodium 40 mg/ Syringe 10 ml @ 5 mls/min NOW ONCE IV 05/15/17 23:00 05/15/17 23:01 DC 05/15/17 23:04 5 MLS/MIN Sodium Chloride 1,000 ml @ 999 mls/hr Q1H1M STAT IV 05/15/17 23:08 05/16/17 00:08 05/15/17 23:42 999 MLS/HR Magnesium Sulfate (Magnesium Sulfate) 2 gm NOW STAT IV 05/15/17 23:08 05/15/17 23:09 DC 05/15/17 23:42 2 GM Piperacillin Sod/ Tazobactam Sod (Zosyn Iv) 4.5 gm NOW STAT IV 05/15/17 23:08 05/15/17 23:09 DC 05/15/17 23:42 4.5 GM ECG Per My Interpretation Indication: abdominal pain Rate (beats per minute): 86 Rhythm: normal sinus Findings: other (diffuse T wave flattening, no PVC) Comparison ECG Date: 17-Jan-2015 Change: no significant change ED Course 2139: The patient was evaluated in room C1B. A complete history and physical examination were performed. 2141: Zofran Inj 4 mg IV, NSS 1000 ml @ 999 mls/hr IV. 7: Famotidine 20 mg/Dextrose 102 ml @ 200 mls/hr IV. 2300: Pantoprazole Sodium 40 mg/Syringe 10 ml @ 5 mls/min IV. 2304: Upon reevaluation, the patient is resting comfortably. I discussed results and treatment plan with her. She verbalizes agreement and understanding. The patient will be evaluated for further management and care. 2307: I discussed the patient's case with Dr. Yeh, [facility] hospitalist. The patient will be evaluated for further management. 2308: Zosyn Iv 4.5 gm IV, Magnesium Sulfate 2 gm IV, NSS 1000 ml @ 999 mls/hr IV. Medical Decision Prior records/ancillary studies reviewed. Triage Nursing notes reviewed. The patient's history was concerning for abdominal pain. Differential diagnosis: Etiologies such as appendicitis, diverticulitis, PUD, biliary pathology, UTI, pancreatitis, obstruction, mesenteric ischemia, aortic pathology, infections, inflammatory bowel disease, renal colic, as well as others were entertained. The patient is a 56-year-old female who has a history of nonalcoholic cirrhosis who presented to the emergency department for nausea vomiting and upper abdominal pain. The patient has a history of esophageal varices but no hematemesis was appreciated. The patient had very significant upper abdominal tenderness. She was treated with IV fluids and IV antiemetics. CT showed the possibility of duodenitis. Other differentials were also put forth. The patient was treated with IV antibiotics IV proton pump inhibitors and IV Zantac. On subsequent reevaluation she was feeling much better. Magnesium was replaced as well. The patient was still feeling significant discomfort so I discussed her case with the on-call [facility] hospitalist group. Given the patient's finding on CAT scan she may require further inpatient management. The patient has been seen by stop attacher in the past. Medication Reconcilliation Current Medication List: was personally reviewed by me Blood Pressure Screening Patient's blood pressure: Elevated blood pressure Blood pressure disposition: Elevated BP felt to be situational Consults Time Called: 2305 Consulting Physician: Dr. Yeh [facility] [place] [facility] hospitalist Returned Call: [phone] I discussed the patient's case with him. The patient will be evaluated for further management. Impression Primary Impression: Duodenitis Additional Impressions: Upper abdominal pain Nausea and vomiting Hypomagnesemia Hyperglycemia Scribe Attestation The scribe's documentation has been prepared under my direction and personally reviewed by me in its entirety. I confirm that the note above accurately reflects all work, treatment, procedures, and medical decision making performed by me. Departure Information Dispostion Being Evaluated By Hospitalist Referrals Miriam Livingston, C.R.N.P (PCP) Patient Instructions My [facility] Problem Qualifiers Additional Impressions: Nausea and vomiting Vomiting type: unspecified Vomiting Intractability: unspecified Qualified Codes: R11.2 - Nausea with vomiting, unspecified
[2017-05-16] VITALS (10 sets, daily range): BP systolic 108–164; BP diastolic 72–97; PULSE 67–84; TEMP 36.4–37; O2SAT 90–99; BMI 31.0
[2017-05-16] MEDS ORDERED: POTASSIUM CHLORIDE 10 MEQ TABCR PO STA (01:31)
[2017-05-16] MEDS ORDERED: MAGNESIUM SULFATE 1GM / D5W 1 GM BAG ONE (01:37)
[2017-05-16] MEDS ORDERED: POTASSIUM CHLORIDE 10 MEQ TABCR ONE (01:37)
[2017-05-16] MEDS ORDERED: OPTIRAY 320 IV PRN (01:45)
[2017-05-16] MEDS: MAGNESIUM SULFATE 1GM / D5W 1 GM in PREMIXED IN D5W 100 ML IV SCH (01:51)
--- NOTE | 2017-05-16 02:43 | History and Physical ---
History & Physical Date & Time of Service: May 16, 2017 at 02:42 Chief Complaint: Cirrhosis, Non-Alcoholic, Hypomagnesemia Primary Care Physician: Miriam Livingston C.R.N.P History of Present Illness Source: patient, spouse The patient is a 56-year-old female, with a past medical history including diabetes mellitus type 1, BARNES and varices, who presents to the emergency department with complaint of upper abdominal pain that began about 3 hours prior to arrival. She reports that the symptoms began after eating dinner today , and also included vomiting, diarrhea, cramping, chills and sweats. She denies any hematemesis or hematochezia. Family History Cancer Diabetes mellitus Heart disease Hypertension Kidney disease Kidney stones Seizures Social History Smoking Status: Former Smoker Smokeless Tobacco Use: No Alcohol Use: none Drug Use: none Marital Status: Housing status: lives with family Occupational Status: employed Immunizations History of Influenza Vaccine: No History of Tetanus Vaccine?: Yes History of Pneumococcal: No History of Hepatitis B Vaccine: has received 2 of the 3 shots Allergies Coded Allergies: Diltiazem (Verified Allergy, Unknown, rash- per GI/heme/onc note, 05/15/17) Latex1 -Allergic Contact Dermititis (Verified Allergy, Unknown, ITCHY NOSE WATERY EYES., 05/15/17) Sulfa Antibiotics (Verified Allergy, Unknown, SOB, erythema , 05/15/17) Eggs or Egg-derived Products (Verified Adverse Reaction, Mild, occasionally has GI upset , 05/15/17) Adhesives (Verified Adverse Reaction, Unknown, TAPE-REDNESS, 05/15/17) Home Medications Scheduled Amitriptyline HCl (Amitriptyline HCl), 100 MG PO HS Bee Pollen (Bee Pollen), 2 CAP PO QAM Calcium Carbonate-Vitamin D (Calcium + D), 1 TAB PO HS Gabapentin (Neurontin), 300 MG PO BID Gabapentin (Neurontin), 600 MG PO HS Liraglutide (Victoza), 1.8 MG PO QPM Metformin Hcl (Glucophage), 1,000 MG PO BID Multiple Vitamin (Multivitamin), 1 TAB PO QAM [place]-3 Fatty Acids (Fish Oil), 1 CAP PO QAM Omeprazole (Prilosec), 40 MG PO QAM Potassium Gluconate (Potassium Gluconate), 1 TAB PO HS Tapentadol Hcl (Nucynta), 75 MG PO QID Scheduled PRN Docusate Sodium (Docusate Sodium), 2 CAP PO HS PRN for Constipation Tramadol (Ultram), 100 MG PO HS PRN for Pain Review of Systems The patient denies chest pain, palpitations, shortness of breath, dyspnea on exertion, cough, lower extremity swelling, blood in urine or stool, dysuria, urinary frequency or urgency, lightheadedness , dizziness, headache, memory loss, loss of consciousness, rash, abnormal bruising or bleeding, imbalance, focal or generalized weakness, numbness or tingling in arms or legs, generalized arthralgias or myalgias, back or neck pain, or night sweats. The review of systems is otherwise negative other than for that already noted above, and at least 10 systems have been reviewed. Physical Exam Vital Signs Date Time Temp Pulse Resp B/P (MAP) Pulse Ox O2 Delivery O2 Flow Rate FiO2 05/16/17 01:43 86 13 94 05/16/17 01:38 89 13 91 05/16/17 01:31 122/67 05/16/17 01:23 87 17 92 05/16/17 01:01 114/65 05/16/17 00:53 84 26 97 05/16/17 00:38 87 13 92 05/16/17 00:33 113/67 05/16/17 00:31 115/66 05/16/17 00:21 84 97 Room Air 05/16/17 00:16 107/63 05/16/17 00:06 86 17 93 05/16/17 00:01 118/68 05/15/17 23:51 87 13 96 05/15/17 23:46 92 21 95 05/15/17 23:31 90 99/59 05/15/17 23:16 90 20 96 05/15/17 23:01 92 27 108/67 96 05/15/17 22:46 89 16 05/15/17 22:41 103/74 05/15/17 21:45 89 15 99 05/15/17 21:40 81 17 98 05/15/17 21:39 81 05/15/17 21:35 88 18 98 Room Air 05/15/17 21:34 36.6 83 25 178/97 96 Room Air 05/15/17 21:33 178/97 The patient is awake, alert and oriented 3, well developed and well nourished, normocephalic and atraumatic, lying in bed and in no acute distress. HEENT--PERRL, EOMI, mucous membranes and oropharynx dry. Neck--supple. No JVD. No bruits. Thyroid normal, trachea midline, no adenopathy. Heart--normal S1 and S2. No murmurs, rubs or gallops. Lungs--clear bilaterally, no respiratory distress, no accessory muscle use. Abdomen--normal bowel sounds and soft. Nontender. Nondistended, no hernias or masses, no organomegaly. Extremities--no cyanosis or clubbing. No edema. There are good distal pulses b/ l. Dermatologic--normal skin turgor, normal color, no abnormal lymph nodes, no rash. Neurologic--cranial nerves II through XII grossly intact. Rheumatologic--normal range of motion. Psychiatric--normal affect. Diagnostics Laboratory Results Results Past 24 Hours Test 05/15/17 22:00 05/15/17 23:45 05/16/17 01:21 Range/Units White Blood Count 14.49 4.8-10.8 K/uL Red Blood Count 4.14 4.2-5.4 M/uL Hemoglobin 12.3 12.0-16.0 g/dL Hematocrit 36.1 37-47 % Mean Corpuscular Volume 87.2 80-100 fL Mean Corpuscular Hemoglobin 29.7 25-34 pg Mean Corpuscular Hemoglobin Concent 34.1 32-36 g/dl Platelet Count 122 130-400 K/uL Mean Platelet Volume 10.3 7.4-10.4 fL Neutrophils (%) (Auto) 88.2 % Lymphocytes (%) (Auto) 4.8 % Monocytes (%) (Auto) 6.1 % Eosinophils (%) (Auto) 0.6 % Basophils (%) (Auto) 0.1 % Neutrophils # (Auto) 12.79 1.4-6.5 K/uL Lymphocytes # (Auto) 0.69 1.2-3.4 K/uL Monocytes # (Auto) 0.88 0.11-0.59 K/uL Eosinophils # (Auto) 0.08 0-0.5 K/uL Basophils # (Auto) 0.02 0-0.2 K/uL RDW Standard Deviation 45.5 36.4-46.3 fL RDW Coefficient of Variation 14.2 11.5-14.5 % Immature Granulocyte % (Auto) 0.2 % Immature Granulocyte # (Auto) 0.03 0.00-0.02 K/uL Red Blood Cell Morphology Unremarkable Prothrombin Time 11.4 9.0-12.0 SECONDS Prothromb Time International Ratio 1.1 0.9-1.1 Activated Partial Thromboplast Time 24.8 21.0-31.0 SECONDS Partial Thromboplastin Ratio 1.0 Sodium Level 128 136-145 mmol/L Potassium Level 3.2 3.5-5.1 mmol/L Chloride Level 94 98-107 mmol/L Carbon Dioxide Level 28 21-32 mmol/L Anion Gap 6.0 3-11 mmol/L Blood Urea Nitrogen 8 7-18 mg/dl Creatinine 0.79 0.60-1.20 mg/dl Est Creatinine Clear Calc Drug Dose 92.5 ml/min Estimated GFR () 97.7 Estimated GFR (Non- 84.3 BUN/Creatinine Ratio 10.2 10-20 Random Glucose 406 70-99 mg/dl Calcium Level 8.9 8.5-10.1 mg/dl Magnesium Level 1.2 1.8-2.4 mg/dl Total Bilirubin 0.8 0.2-1 mg/dl Direct Bilirubin 0.3 0-0.2 mg/dl Aspartate Amino Transf (AST/SGOT) 32 15-37 U/L Alanine Aminotransferase (ALT/SGPT) 31 12-78 U/L Alkaline Phosphatase 240 45-117 U/L Total Creatine Kinase 60 26-192 U/L Creatine Kinase MB 0.8 0.5-3.6 ng/ml Creatine Kinase MB Ratio 1.3 0-3.0 Troponin I < 0.015 0-0.045 ng/ml Total Protein 10.6 6.4-8.2 gm/dl Albumin 3.0 3.4-5.0 gm/dl Lipase 116 73-393 U/L Beta-Hydroxybutyric Acid 2.75 0.2-2.81 mg/dL Urine Color YELLOW Urine Appearance CLEAR CLEAR Urine pH 6.5 4.5-7.5 Urine Specific [place] 1.027 1.000-1.030 Urine Protein NEG NEG Urine Glucose (UA) 3+ NEG Urine Ketones TRACE NEG Urine Occult Blood NEG NEG Urine Nitrite NEG NEG Urine Bilirubin NEG NEG Urine Urobilinogen NEG NEG Urine Leukocyte Esterase NEG NEG Bedside Glucose 390 70-90 mg/dl Diagnostic Radiology Patient Name: GLORIA ALLAN Unit Number: [id number] Dictated: 05/15/172212 Transcribed: 05/15/172212 EV Printed Date/Time: [~ rep prt dt]/[~ rep prt tm] [~ rep ct labl] - [~ rep ct ivnm] [facility] Radiology Department [place], [place] [id number] Dictated: 05/15/172212 Transcribed: 05/15/172212 EV Printed Date/Time: [~ rep prt dt]/[~ rep prt tm] [~ rep ct labl] - [~ rep ct ivnm] [~ rep ct add3]] SINGLE VIEW CHEST CLINICAL HISTORY: Generalized abdominal pain. FINDINGS: An AP, portable, upright chest radiograph is compared to study dated 11/06/2014 and correlated with chest CT dated 01/18/2015. The examination is degraded by portable technique and patient rotation. The heart is top normal for projection. The mediastinal contour is within normal limits. The lungs and pleural spaces are clear. No pneumothorax is seen. The bony thorax is grossly intact. IMPRESSION: No active disease in the chest. Electronically signed by: Ronny Powell M.D. 05/15/2017 10:14 PM Dictated Date/Time: 05/15/2017 10:13 PM The status of this report is Signed. Draft = Not yet reviewed or approved by Radiologist. Signed = Reviewed and approved by Radiologist. <AttendingPhy></AttendingPhy> <FamilyPhy>Miriam Livingston C.R.N.P</FamilyPhy> < PrimaryPhy>Miriam Livingston C.R.N.P</PrimaryPhy> <UnitNumber>[id number]</ UnitNumber> <VisitNumber>[id number]</VisitNumber> <PatientName>GLORIA ALLAN</ PatientName> <DateOfBirth>1960</DateOfBirth> <Location>[facility]</Location> < ServiceDate>05/15/17</ServiceDate> <MNE>ESINDI</MNE> <OrderingPhy>Juan Carlos Maradiaga D.O.</OrderingPhy> <OrderingPhyMNE>f rep ord dr arango</OrderingPhyMNE> <DictatingPhyMNE>f rep dict dr arango</DictatingPhyMNE> <CCListMNE>f rep ct mne</ CCListMNE> <AdmittingPhyMNE>f pt admit dr arango</AdmittingPhyMNE> <AttendingPhyMNE >f pt attend dr arango</AttendingPhyMNE> <ConsultingPhyMNE>f pt consult dr arango</ConsultingPhyMNE> <FamilyPhyMNE>f pt fam dr arango</FamilyPhyMNE> <OtherPhyMNE>f pt other dr arango</OtherPhyMNE> < PrimaryPhyMNE>f pt prim care dr arango</PrimaryPhyMNE> <ReferringPhyMNE>f pt referring dr arango</ReferringPhyMNE> Patient Name: GLORIA ALLAN Unit Number: [id number] Dictated: 05/15/172222 Transcribed: 05/15/172222 EV Printed Date/Time: [~ rep prt dt]/[~ rep prt tm] [~ rep ct labl] - [~ rep ct ivnm] [facility] Radiology Department [place], [place] [id number] Dictated: 05/15/172222 Transcribed: 05/15/172222 EV Printed Date/Time: [~ rep prt dt]/[~ rep prt tm] [~ rep ct labl] - [~ rep ct ivnm] CT SCAN OF THE ABDOMEN AND PELVIS WITHOUT IV CONTRAST CLINICAL HISTORY: Generalized abdominal pain. Vomiting. COMPARISON STUDY: Abdominal CT dated 01/18/2006. TECHNIQUE: CT scan of the abdomen and pelvis is performed from the lung bases to the proximal femora. Images are reviewed in the axial, sagittal, and coronal planes. IV contrast was not administered for this examination as per the referring clinician. Note that the examination was performed in suboptimal fashion without oral and IV contrast. A dose lowering technique was utilized adhering to the principles of ALARA. CT DOSE: 778.70 mGy.cm FINDINGS: Lung bases: The heart is normal in size and without pericardial effusion. There are coronary artery calcifications. Small calcified granulomas are seen in the left lower lobe. The lung bases are otherwise clear. There is a small hiatal hernia. Liver: The unenhanced liver is enlarged, measuring 20.7 cm in length. The liver is stroke and morphology. There is mild nodularity of the surface contour, as well as hypertrophy of the left lobe and caudate. There is no intrahepatic biliary ductal dilatation. There is recanalization of the periumbilical vein. Perigastric varices are noted. Gallbladder: Unremarkable. Spleen: The Spleen is enlarged, measuring 15.2 cm in length. Pancreas: The unenhanced pancreas is atrophic and grossly unremarkable. Adrenal glands: Unremarkable. Kidneys: The unenhanced kidneys demonstrate mild cortical atrophy and are without hydronephrosis. There are no renal calculi identified. There is no evidence of contour deforming renal mass lesion. There is a retroverted left renal vein. Abdominal vasculature: The abdominal aorta is normal in course and caliber. Bowel: The small bowel and colon are normal in course and caliber. The appendix is normal as visualized. Peritoneum/retroperitoneum: There is no intraperitoneal free air. There is inflammatory stranding and fluid identified within the right retroperitoneal space. Fluid is seen tracking lung the right paracolic gutter. Trace fluid is also seen in the left paracolic gutter. Lymphadenopathy: None. Pelvic viscera: The bladder is normal as visualized. The uterus is surgically absent. No adnexal lesion is seen. A large lipoma is noted in the left thigh musculature. Skeletal structures: The Skeletal structures are osteopenic. There is mild lumbosacral spondylosis. No lytic or blastic lesions are seen. IMPRESSION: 1. Significantly suboptimal examination without oral and IV contrast. 2. There is nonspecific inflammatory change and fluid identified in the right retroperitoneal space, with fluid seen tracking in the right paracolic gutter. This is of indeterminant etiology. The closest structures are the duodenum and the ascending colon, and this could potentially be related to duodenitis, ulcer disease, or possibly colonic diverticulitis. This process appears to be separate from the right kidney and pancreas. No intraperitoneal free air is seen and there is no evidence of abscess. Clinical correlation will be essential. 3. The liver is enlarged and appears cirrhotic in morphology. There is recanalization of the periumbilical vein, splenomegaly, and perigastric varices. 4. Additional findings as above. Electronically signed by: Ronny Powell M.D. 05/15/2017 10:41 PM Dictated Date/Time: 05/15/2017 10:23 PM The status of this report is Signed. Draft = Not yet reviewed or approved by Radiologist. Signed = Reviewed and approved by Radiologist. <AttendingPhy></AttendingPhy> <FamilyPhy>Miriam Livingston C.R.N.P</FamilyPhy> < PrimaryPhy>Miriam Livingston C.R.N.P</PrimaryPhy> <UnitNumber>[id number]</ UnitNumber> <VisitNumber>[id number]</VisitNumber> <PatientName>GLORIA ALLAN</ PatientName> <DateOfBirth>1960</DateOfBirth> <Location>[facility]</Location> < ServiceDate>05/15/17</ServiceDate> <MNE>ESINDI</MNE> <OrderingPhy>Juan Carlos Maradiaga D.O.</OrderingPhy> <OrderingPhyMNE>f rep ord dr arango</OrderingPhyMNE> <DictatingPhyMNE>f rep dict dr arango</DictatingPhyMNE> <CCListMNE>f rep ct nba</ CCListMNE> <AdmittingPhyMNE>f pt admit dr arango</AdmittingPhyMNE> <AttendingPhyMNE >f pt attend dr arango</AttendingPhyMNE> <ConsultingPhyMNE>f pt consult dr arango</ConsultingPhyMNE> <FamilyPhyMNE>f pt fam dr arango</FamilyPhyMNE> <OtherPhyMNE>f pt other dr arango</OtherPhyMNE> < PrimaryPhyMNE>f pt prim care dr arango</PrimaryPhyMNE> <ReferringPhyMNE>f pt referring dr arango</ReferringPhyMNE> Impression Assessment and Plan Abdominal pain/liver cirrhosis/portal hypertension/varices/BARNES-- CT scan of abdomen performed by the ED without contrast suggested fluid in the right paracolic gutter of undetermined source. Follow-up CT of abdomen and pelvis with contrast suggested fluid and inflammatory stranding is adjacent to the second/third portion of duodenum, with concerns for possible duodenitis or ulcer disease. Patient will be n.p.o. except medications. NSS + KCl 20 mEq at 100 mils per hour. Protonix 40 mg IV twice daily. Consult her merchandiser retail representative Dr. Irizarry. Diabetes mellitus-- Hold Victoza and metformin. Placed on Accu-Cheks before meals and at bedtime with NovoLog coverage per scale. CAD/hypertension/SVT status post ablation/hypomagnesemia/hypokalemia-- Give a total of magnesium sulfate 4 g IV and potassium chloride 40 mEq orally Chronic pain syndrome-- Continue amitriptyline 100 mg p.o. at bedtime, gabapentin 300 mg p.o. twice daily and 600 mg p.o. at bedtime, and Nucynta 75 mg p.o. 4 times daily. Advanced Directives Existing Advance Directive: No Existing Living Will: No Existing Power of Gate Supervisor: No Resuscitation Status VTE Prophylaxis Will order VTE Prophylaxis: Yes
[2017-05-16] MEDS ORDERED: ONDANSETRON 8MG OD TAB PO PRN (02:45)
[2017-05-16] MEDS ORDERED: GLUCOSE 40% GEL 15 GM TUBE PO PRN (02:45)
[2017-05-16] MEDS ORDERED: GLUCOSE 10 TABS/TUBE PO PRN (02:45)
[2017-05-16] MEDS ORDERED: TRAMADOL HCL 50 MG TAB PO PRN (02:45)
[2017-05-16] MEDS ORDERED: GLUCAGON FOR INJ 1 MG VIAL SQ PRN (02:45)
[2017-05-16] MEDS ORDERED: DOCUSATE SODIUM 100 MG CAP PO PRN (02:45)
[2017-05-16] MEDS ORDERED: DEXTROSE 50% 50 ML SYR IV PRN (02:45)
[2017-05-16] MEDS ORDERED: NURSING VERBAL MED ORDER ONE ×2 (03:15→21:00)
[2017-05-16] MEDS: NSS + 20MEQ KCL 1000ML 1,000 ML IV SCH ×2 (04:47→16:29)
[2017-05-16] MEDS: INSULIN ASPART 100 UNITS/ML 3 ML PEN SC SCH ×4 (05:47→21:32)
[2017-05-16] MEDS ORDERED: INSULIN ASPART 100 UNITS/ML 3 ML PEN SC SCH (06:30)
[2017-05-16] MEDS: GABAPENTIN 300 MG CAP PO SCH ×2 (07:10→14:00)
--- NOTE | 2017-05-16 07:19 | DIAGNOSTIC IMAGING REPORT ---
ABDOMEN AND PELVIS CT WITH IV CONTRAST CT DOSE: 862.94 mGy.cm HISTORY: Follow-up inflammatory change and fluid. abnormal CT without contrast TECHNIQUE: Multiaxial CT images of the abdomen and pelvis were performed following the use of intravenous contrast. A dose lowering technique was utilized adhering to the principles of ALARA. COMPARISON STUDY: Abdomen and pelvis CT 05/15/2017. FINDINGS: Punctate calcified granulomas within the left lower lobe. No pneumoperitoneum. No pneumatosis. No change in the partially visualized fat-containing lesion within the left proximal thigh. This favors a lipoma. Slightly nodular contour to the liver consistent with cirrhosis. The gallbladder, adrenal glands, and kidneys are unremarkable. Subcentimeter hypodensity within the inferior aspect of the spleen is too small to characterize. Underdistention of the stomach versus focal wall thickening at the body. No hydronephrosis. The pancreas enhances normally. Mild upper abdominal varicosities. The main portal vein is patent. A left retroaortic renal vein. No retroperitoneal lymphadenopathy. The bladder is unremarkable. The uterus is surgically absent. No definite bowel wall thickening or obstruction. The appendix is normal in caliber. Mild perirectal edema remains unchanged. No significant change in the bilateral paracolic gutter inflammatory change/fluid. This is more pronounced on the right. This abuts and partially surrounds the second portion of the duodenum. This also extends into Morison's pouch. No suspicious lytic or blastic osseous lesions. Stable 8 x 4 mm nodular density within the base of the left lower lobe. IMPRESSION: 1. Overall, no significant change compared to the prior study. 2. Inflammatory change and a small amount of fluid within the bilateral paracolic gutters, right greater than left, is not significantly changed. This remains nonspecific. This could be chronic due to the patient's suspected cirrhosis and portal hypertension. However, given the long-term stability a neoplastic process cannot be entirely excluded. 3. No bowel wall thickening or obstruction. 4. Additional findings as described above. Electronically signed by: Toro Mary M.D. 05/16/2017 7:17 AM Dictated Date/Time: 05/16/2017 7:07 AM
[2017-05-16] MEDS: MULTIVITAMIN TAB PO SCH (08:29)
[2017-05-16] MEDS ORDERED: PIPERACILL/TAZOBAC CONSULT ACTIVE PRN ×2 (08:30)
[2017-05-16] MEDS: TAPENTADOL HCL 50 MG TAB PO SCH ×4 (08:40→21:34)
[2017-05-16] MEDS ORDERED: PIPERACILL/TAZOBAC IV 3.375 GM in DEXTROSE 5% 100ML 100 ML IV ONE (08:45)
[2017-05-16] MEDS ORDERED: PANTOprazole INJ 40 MG in SYRINGE 0 ML IV SCH ×2 (09:00→11:00)
[2017-05-16] MEDS: INSULIN GLARGINE SOLOSTAR 100 UNITS/ML 3 ML PEN SC SCH (09:10)
[2017-05-16 09:16] LABS: HEMATOCRIT 32.5 % (37-47); HEMOGLOBIN 11.1 g/dL (12.0-16.0); MEAN CELL VOLUME 88.1 fL (80-100); MEAN CORPUSCULAR HEMOGLOBIN 30.1 pg (25-34); MEAN CORPUSCULAR HGB CONC 34.2 g/dl (32-36); RED CELL DISTRIBUTION WIDTH CV 14.6 % (11.5-14.5); RED CELL DISTRIBUTION WIDTH SD 46.9 fL (36.4-46.3); WHITE BLOOD COUNT 7.33 K/uL (4.8-10.8)
[2017-05-16 09:51] LABS: PLATELET COUNT 94 K/uL (130-400)
[2017-05-16 09:52] LABS: BASO % 0.3 %; BASO ABS # 0.02 K/uL (0-0.2); EOS % 0.5 %; EOS ABS # 0.04 K/uL (0-0.5); IG# 0.03 K/uL (0.00-0.02); LYMPH ABS # 0.95 K/uL (1.2-3.4); MONO % 4.9 %; MONO ABS # 0.36 K/uL (0.11-0.59); NEUT % 80.9 %; NEUT ABS # 5.93 K/uL (1.4-6.5)
[2017-05-16 09:55] LABS: HEMOGLOBIN A1C 10.2 % (4.5-5.6)
[2017-05-16 09:56] LABS: ALBUMIN 2.4 gm/dl (3.4-5.0); CALCIUM 8.1 mg/dl (8.5-10.1); CREATININE 0.69 mg/dl (0.60-1.20); POTASSIUM 3.8 mmol/L (3.5-5.1); TOTAL PROTEIN 9.3 gm/dl (6.4-8.2)
--- NOTE | 2017-05-16 11:14 | Gastrointestinal Consultation ---
Gastrointestinal Consultation Date of Consultation: May 16, 2017 Attending Physician: Howie Consulting Physician: Trista Reason for Consultation: cirrhosis, varices History of Present Illness Patient is a 56 year old female w/ history of BARNES cirrhosis and others listed below who presented through the ED for nausea, vomiting, abd pain, diarrhea x 1 day - GI was asked to evaluate the pt given her history or cirrhosis and varices. Pt was seen and evaluated, chart reviewed. Pt notes was in her typical state of health up until yesterday. Woke up feeling ok, had abd pain after dinner followed by nausea, vomiting, chills, diarrhea. No hematemesis, coffee ground emesis, melena, BRBPR. In ED she was afebrile, hypertensive. Since admission, notes improvement of her symptoms since admission. No nausea, vomiting, diarrhea since admission. Continues to have abd pain, constant, full and generalized. Not sharp and stabbing. Has not had anything to eat/drink since midnight. No fever, chills, CP, SOB. Wants to go home. Diagnosis: Suspected BARNES cirrhosis Decompensations: Varices: Yes, did not tolerate BB HE: none Ascites: none Screenings Varices: UTD HCC: UTD Immunizations: completed Hep A and Hep B CT ABD/Pelvis 05/15/17: Overall, no significant change compared to the prior study. Inflammatory change and a small amount of fluid within the bilateralparacolic gutters, right greater than left, is not significantly changed. This remains nonspecific. This could be chronic due to the patient's suspectedcirrhosis and portal hypertension. However, given the long-term stability a neoplastic process cannot be entirely excluded. No bowel wall thickening or obstruction. Additional findings as described above. EGD 01/24/17: Grade I esophageal varices. Portal hypertensive gastropathy. Normal examined duodenum.No specimens collected EGD 07/21/15: Grade II varices w/o stigmata of bleeding Colonoscopy 07/21/15: tubular adenoma polyp and internal hemorrhoids. Past Medical/Surgical History Medical Problems: (1) Bilateral otitis externa Status: Acute (2) Cellulitis and abscess of face Status: Acute (3) Duodenitis Status: Acute (4) Hyperglycemia Status: Acute (5) Hypomagnesemia Status: Acute (6) Nausea and vomiting Status: Acute (7) Otitis media Status: Acute (8) Upper abdominal pain Status: Acute Past Medical History: BARNES, T2DM, HTN, GERD, esophageal varices, HE, dyslipidemiea, SMM Past Surgical History: EGD x 4 Colonoscopy Cardiac ablation for SVT in 2010 Cardiac cath x 2 in 2008 Total Abd Hysterectomy Family History Cancer Diabetes mellitus Heart disease Hypertension Kidney disease Kidney stones Seizures Social History Smoking Status: Former Smoker Alcohol Use: none Drug Use: none Marital Status: Housing Status: lives with significant other Occupation Status: employed Allergies Coded Allergies: Diltiazem (Verified Allergy, Unknown, rash- per GI/heme/onc note, 05/15/17) Latex1 -Allergic Contact Dermititis (Verified Allergy, Unknown, ITCHY NOSE WATERY EYES., 05/15/17) Sulfa Antibiotics (Verified Allergy, Unknown, SOB, erythema , 05/15/17) Eggs or Egg-derived Products (Verified Adverse Reaction, Mild, occasionally has GI upset , 05/15/17) Adhesives (Verified Adverse Reaction, Unknown, TAPE-REDNESS, 05/15/17) Current Medications Home Meds and Scripts Medications Dose Route/Sig Max Daily Dose Days Date Category Dose Instructions Potassium Gluconate Unknown Strength Tab 1 Tab PO HS 05/15/17 Reported Bee Pollen Unknown Strength Cap 2 Cap PO QAM 05/15/17 Reported Nucynta (Tapentadol Hcl) 75 Mg Tab 75 Mg PO QID 05/15/17 Reported Prilosec (Omeprazole) 40 Mg Cap 40 Mg PO QAM 01/09/17 Reported Fish Oil ([place]-3 Fatty Acids) 1 Cap Cap 1 Cap PO QAM 01/09/17 Reported Victoza (Liraglutide) 18 Mg/3 Ml Inj 1.8 Mg PO QPM 01/09/17 Reported Docusate Sodium 100 Mg Cap 2 Cap PO HS PRN 01/17/15 Reported Multivitamin (Multiple Vitamin) 1 Tab Tab 1 Tab PO QAM 01/17/15 Reported Calcium + D (Calcium Carbonate-Vitamin D) 1 Tab Tab 1 Tab PO HS 01/17/15 Reported Ultram (Tramadol HCl) 50 Mg Tab 100 Mg PO HS PRN 11/24/14 Reported Amitriptyline HCl 100 Mg Tab 100 Mg PO HS 11/02/14 Reported Neurontin (Gabapentin) 300 Mg Cap 600 Mg PO HS 11/02/14 Reported PT STATES "MAY TAKE ADDITIONAL 300MG AT HS IF NEEDED", USUALL DOES NOT NEED TO TAKE. Neurontin (Gabapentin) 300 Mg Cap 300 Mg PO BID 02/22/14 Reported TAKE 1 IN MORNING AND 1 AT NOON Glucophage (Metformin Hcl) 1,000 Mg Tab 1,000 Mg PO BID 11/28/11 Reported Review of Systems Constitutional: No fever, No chills, No sweats, No weight loss, No weakness ENT: No unusual epistaxis, No tinnitus, No trouble swallowing, No pain on swallowing Respiratory: No cough, No wheezing, No shortness of breath, No hemoptysis Cardiac: No chest pain, No orthopnea, No edema, No palpitations Abdomen: + pain, + nausea, No vomiting, No diarrhea, No GI bleeding, No dysphagia, No odynophagia, No acolic stools, No dark urine Skin: No rash, No itch Physical Exam Date Time Temp Pulse Resp B/P (MAP) Pulse Ox O2 Delivery O2 Flow Rate FiO2 05/16/17 07:25 36.8 78 20 116/76 (89) 97 Room Air 05/16/17 02:45 36.9 84 20 128/79 93 Room Air 05/16/17 01:43 86 13 94 05/16/17 01:38 89 13 91 05/16/17 01:31 122/67 05/16/17 01:23 87 17 92 05/16/17 01:01 114/65 05/16/17 00:53 84 26 97 05/16/17 00:38 87 13 92 05/16/17 00:33 113/67 05/16/17 00:31 115/66 05/16/17 00:21 84 97 Room Air 05/16/17 00:16 107/63 05/16/17 00:06 86 17 93 05/16/17 00:01 118/68 05/15/17 23:51 87 13 96 05/15/17 23:46 92 21 95 05/15/17 23:31 90 99/59 05/15/17 23:16 90 20 96 05/15/17 23:01 92 27 108/67 96 05/15/17 22:46 89 16 05/15/17 22:41 103/74 05/15/17 21:45 89 15 99 05/15/17 21:40 81 17 98 05/15/17 21:39 81 3/7/18 21:35 88 18 98 Room Air 05/15/17 21:34 36.6 83 25 178/97 96 Room Air 05/15/17 21:33 178/97 General Appearance: no apparent distress Eyes: PERRL Neck: supple, trachea midline Respiratory/Chest: lungs clear, normal breath sounds, no respiratory distress, no accessory muscle use Cardiovascular: regular rate, rhythm, no gallop Abdomen: normal bowel sounds, soft, no organomegaly, no pulsatile mass, + tenderness (mild generalized tenderness x 4 worse in bilateral upper abd) Extremities: no pedal edema Neurologic/Psych: alert, normal mood/affect, oriented x 3 Skin: normal color, no jaundice, warm/dry, no rash Laboratory Results Last 24 Hours Test 05/15/17 22:00 05/15/17 23:45 05/16/17 01:21 05/16/17 07:53 White Blood Count 14.49 K/uL Red Blood Count 4.14 M/uL Hemoglobin 12.3 g/dL Hematocrit 36.1 % Mean Corpuscular Volume 87.2 fL Mean Corpuscular Hemoglobin 29.7 pg Mean Corpuscular Hemoglobin Concent 34.1 g/dl Platelet Count 122 K/uL Mean Platelet Volume 10.3 fL Neutrophils (%) (Auto) 88.2 % Lymphocytes (%) (Auto) 4.8 % Monocytes (%) (Auto) 6.1 % Eosinophils (%) (Auto) 0.6 % Basophils (%) (Auto) 0.1 % Neutrophils # (Auto) 12.79 K/uL Lymphocytes # (Auto) 0.69 K/uL Monocytes # (Auto) 0.88 K/uL Eosinophils # (Auto) 0.08 K/uL Basophils # (Auto) 0.02 K/uL RDW Standard Deviation 45.5 fL RDW Coefficient of Variation 14.2 % Immature Granulocyte % (Auto) 0.2 % Immature Granulocyte # (Auto) 0.03 K/uL Red Blood Cell Morphology Unremarkable Prothrombin Time 11.4 SECONDS Prothromb Time International Ratio 1.1 Activated Partial Thromboplast Time 24.8 SECONDS Partial Thromboplastin Ratio 1.0 Sodium Level 128 mmol/L Potassium Level 3.2 mmol/L Chloride Level 94 mmol/L Carbon Dioxide Level 28 mmol/L Anion Gap 6.0 mmol/L Blood Urea Nitrogen 8 mg/dl Creatinine 0.79 mg/dl Est Creatinine Clear Calc Drug Dose 92.5 ml/min Estimated GFR () 97.7 Estimated GFR (Non- 84.3 BUN/Creatinine Ratio 10.2 Random Glucose 406 mg/dl Calcium Level 8.9 mg/dl Magnesium Level 1.2 mg/dl Total Bilirubin 0.8 mg/dl Direct Bilirubin 0.3 mg/dl Aspartate Amino Transf (AST/SGOT) 32 U/L Alanine Aminotransferase (ALT/SGPT) 31 U/L Alkaline Phosphatase 240 U/L Total Creatine Kinase 60 U/L Creatine Kinase MB 0.8 ng/ml Creatine Kinase MB Ratio 1.3 Troponin I < 0.015 ng/ml Total Protein 10.6 gm/dl Albumin 3.0 gm/dl Lipase 116 U/L Beta-Hydroxybutyric Acid 2.75 mg/dL Urine Color YELLOW Urine Appearance CLEAR Urine pH 6.5 Urine Specific [place] 1.027 Urine Protein NEG Urine Glucose (UA) 3+ Urine Ketones TRACE Urine Occult Blood NEG Urine Nitrite NEG Urine Bilirubin NEG Urine Urobilinogen NEG Urine Leukocyte Esterase NEG Bedside Glucose 390 mg/dl 300 mg/dl Test 05/16/17 09:02 White Blood Count 7.33 K/uL Red Blood Count 3.69 M/uL Hemoglobin 11.1 g/dL Hematocrit 32.5 % Mean Corpuscular Volume 88.1 fL Mean Corpuscular Hemoglobin 30.1 pg Mean Corpuscular Hemoglobin Concent 34.2 g/dl Platelet Count 94 K/uL Mean Platelet Volume 10.0 fL Neutrophils (%) (Auto) 80.9 % Lymphocytes (%) (Auto) 13.0 % Monocytes (%) (Auto) 4.9 % Eosinophils (%) (Auto) 0.5 % Basophils (%) (Auto) 0.3 % Neutrophils # (Auto) 5.93 K/uL Lymphocytes # (Auto) 0.95 K/uL Monocytes # (Auto) 0.36 K/uL Eosinophils # (Auto) 0.04 K/uL Basophils # (Auto) 0.02 K/uL RDW Standard Deviation 46.9 fL RDW Coefficient of Variation 14.6 % Immature Granulocyte % (Auto) 0.4 % Immature Granulocyte # (Auto) 0.03 K/uL Platelet Estimate DECREASED Polychromasia 1+ Sodium Level 135 mmol/L Potassium Level 3.8 mmol/L Chloride Level 104 mmol/L Carbon Dioxide Level 27 mmol/L Anion Gap 4.0 mmol/L Blood Urea Nitrogen 5 mg/dl Creatinine 0.69 mg/dl Est Creatinine Clear Calc Drug Dose 105.9 ml/min Estimated GFR () 113.6 Estimated GFR (Non- 98.0 BUN/Creatinine Ratio 6.7 Random Glucose 285 mg/dl Estimated Average Glucose 246 mg/dl Hemoglobin A1c 10.2 % Calcium Level 8.1 mg/dl Magnesium Level 2.2 mg/dl Total Bilirubin 0.5 mg/dl Direct Bilirubin 0.1 mg/dl Aspartate Amino Transf (AST/SGOT) 23 U/L Alanine Aminotransferase (ALT/SGPT) 29 U/L Alkaline Phosphatase 208 U/L Total Protein 9.3 gm/dl Albumin 2.4 gm/dl Impression Patient is a 56 year old female w/ BARNES cirrhosis addmitted for N/V/D x [address] imaging concerning for nonspecific inflammatory changes w/ fluid in bilateral paracolic gutters, right > left. Chronicity unknown, given symptoms of nausea, vomiting abd pain, will need to rule out GI source. LFTs stable and lipase is non-elevated. EGD to rule out perforated ulcer although unlikely as pt has been on NSAIDs, no report of symptoms prior and has not had s/s of GIB Plan - NPO - EGD - Antiemetics PRN - Cirrhosis Management - Follow up as scheduled with KALEY Turcios - No ETOH, illicit drugs, - No more than 2g APAP daily - No more than 2g NA daily Attg add: I interviewed and examined pt, reviewed chart and labs. Pt with h/o cirrhosis and portal HTN (varices, tpenia) with abrupt onset of n/v/d that now appears resolving. Labs show hyperglycemia; CT shows infiltrative changes along both paracolic gutters, as well as stigmata of portal HTN. Suspect gastroenteritis; CT changes likely related to portal HTN. EGD today.
[2017-05-16] MEDS ORDERED: LIDOCAINE HCL 2% 2 ML VIAL (20MG/ML) ONE (13:51)
[2017-05-16] MEDS ORDERED: PROPOFOL IV EMULSION 10 MG/ML 20 ML VIAL IV ONE (13:51)
[2017-05-16] MEDS ORDERED: PIPERACILL/TAZOBAC IV 3.375 GM in DEXTROSE 5% 100ML 100 ML IV SCH (14:00)
--- NOTE | 2017-05-16 14:14 | GI REPORT ---
Procedure Date: 05/16/2017 1:54 PM Procedure: Upper GI endoscopy Indications: Nausea with vomiting Medicines: See the Anesthesia note for documentation of the administered medications Complications: No immediate complications. Estimated Blood Loss: Estimated blood loss: none. Procedure: Pre-Anesthesia Assessment: - ASA Grade Assessment: III - A patient with severe systemic disease. After obtaining informed consent, the endoscope was passed under direct vision. Throughout the procedure, the patient's blood pressure, pulse, and oxygen saturations were monitored continuously. The Scope was introduced through the mouth, and advanced to the second part of duodenum. The upper GI endoscopy was accomplished without difficulty. The patient tolerated the procedure well. Findings: Four columns of grade II varices were found in the middle third of the esophagus and in the lower third of the esophagus, 40 cm from the incisors. No stigmata of recent bleeding were evident and no red quentin signs were present. There were no gastric varices. There was moderate portal gastropathy in the body of the stomach. The antrum was normal. The duodenum was normal. Impression: - Non-bleeding grade II esophageal varices. Portal gastropathy. Recommendation: - Discharge patient to floor. - Suspect that pt has infectious gastroenteritis - no evidence of PUD on exam. CT findings presumably related to portal HTN. - Regarding varices - pt will need to resume beta blockade, or will need to undergo banding if cannot tolerate beta blockade. - Diet as tolerated. Can be discharged once pt is tolerating diet. Uls to r/o PVT as inpt or outpt. Jesse Weston M.D. Jesse Weston MD 05/16/2017 2:13:25 PM This report has been signed electronically. Note Initiated On: 05/16/2017 1:54 PM I attest to the content of the Intraoperative Record and orders documented therein, exceptions below
--- NOTE | 2017-05-16 14:30 | Progress Note ---
Progress Note Date of Service May 16, 2017. (Alecia Bellamy ., HILDA) Progress Note Patient admitted after midnight. Seen and examined by me this morning. Patient states vomiting and diarrhea have resolved. Her abdominal pain is improving as well. Currently she complains of a 6/10 aching pain in her upper quadrants that sometimes becomes sharp with movement or pressure. She complains of generalized weakness and fatigue. She states she had chills and sweats this morning but no fevers. The patient denies fevers, chest pain, palpitations, claudication, cough, wheezing, shortness of breath, nausea, vomiting, diarrhea, dysuria, hematuria, urinary retention, paralysis, focal motor weakness, numbness and tingling. Physical exam: General appearance: +Fatigued. Well-developed, well-nourished, no apparent distress Head: Normocephalic, atraumatic Eyes: Normal inspection, PERRL, EOMI ENT: +Thrush. Normal ENT inspection, hearing grossly normal Neck: Supple, no JVD, trachea midline Respiratory/Chest: Lungs clear to auscultation, normal breath sounds, no respiratory distress Cardiovascular: Regular rate & rhythm, no gallop, no murmur Abdomen/GI: +Diffusely TTP, most marked in upper quadrants. Normal bowel sounds, non-tender, soft Extremities/Musculoskeletal: Normal inspection, no calf tenderness, no pedal edema Neurological/Psych: Alert, normal mood/affect, oriented x 3 Skin: Normal color, warm/dry, no rash A/P: 56 y/o female with a history of BARNES cirrhosis, varices, HTN, HLD, h/o [place] 2008, DM II, anxiety, arthritis, and GERD who presents with N/V/D and abdominal pain. CT abdomen/pelvis with fluid in bilateral paracolic gutters, R>L. Possible duodenitis, ulcer disease, or diverticulitis. Neoplastic process cannot be excluded. Abdominal pain, hypokalemia, hypomagnesemia--improving -Admit to telemetry. No acute events overnight, pt in SR with HR 70s-80s -Pt with leukocytosis on admission, start Zosyn IV -NPO -NSS + 20 KCl at 100 cc/hr -GI consulted, appreciate recs: Plan for EGD today. Suspect gastroenteritis. -Protonix 40 mg IV BID -Hypokalemia resolving, potassium up 3.8 today -Hypomagnesemia resolved, magnesium 2.2 -LFTs improved Hyponatremia--resolving -Sodium up to 135 -IVF as above Oral candidiasis -Start Nystatin (Alecia Bellamy PA-C) Reviewed: Pt Seen/Exam by Me (Adwoa Neville MD) History Physician Radio Station Audio Engineer Supervision Note: I interviewed and examined the patient. Discussed with SELENE Bellamy and agree with findings and plan as documented in the note. Any exceptions or clarifications are listed here: Patient has returned from EGD which showed grade 2 esophageal varices nonbleeding, portal gastropathy, otherwise normal. Her abdominal pain is improved to a 5 out of 10 now, no nausea, no further loose stools since this morning. She has not eaten all day. She has a migraine headache which is typical for her. Remains afebrile. Vitals reviewed Gen: AAOx3, NAD HEENT: anicteric sclerae, PERRLA, EOMI, no oral thrush noted, mildly dry mucous membranes CV: RRR no mgr nl S1S2 Pulm: CTAB no wcr Abd: +BS soft minimally tender in the epigastric region without guarding or rebound tenderness, ND no masses or hernias Ext: no edema, 2+ DP pulses Skin: no rashes, warm/dry Neuro: full strength throughout This patient is a 56-year-old female with a history of Barnes cirrhosis, MGUS with chronic pain, portal hypertension, HTN, HL, CAD with history of [place] in 2009 , DM type II, anxiety, arthritis, GERD, who presents with nausea, vomiting, diarrhea, and abdominal pain. CT of abdomen pelvis with findings as above. EGD today with nonbleeding esophageal varices, no source of pain. Discussed case with GI. Suspect viral gastroenteritis. -Discontinue IV Zosyn -checked hepatic ultrasound which was negative for portal venous thrombosis -Continue home pain medication -If tolerating p.o. and abdominal pain improved, could discharged home tomorrow -Decrease IV fluids to 75 ML's per hour -Discontinue nystatin-no oral thrush noted on exam by me -Change IV PPI to p.o. PPI -Will need banding of varices as an outpatient eventually -She is on Coreg for her beta-valentino as an outpatient which was omitted from her admission indication reconciliation-corrected this today Documented By: Adwoa Neville (Adwoa Neville MD)
--- NOTE | 2017-05-16 14:49 | Anesthesiology Progress Note ---
Anesthesia Post Op Note Date & Time May 16, 2017 at 14:48 Vital Signs Pain Intensity: 8 Vital Signs Past 12 Hours Date Time Temp Pulse Resp B/P (MAP) Pulse Ox O2 Delivery O2 Flow Rate FiO2 05/16/17 14:27 82 16 116/72 (87) 97 Room Air 05/16/17 14:12 36 78 16 122/74 (90) 95 Room Air 05/16/17 13:04 37.3 80 20 112/73 (86) 94 Room Air 05/16/17 12:00 Room Air 05/16/17 11:39 36.7 74 18 108/72 (84) 94 Room Air 05/16/17 08:00 97 Room Air 05/16/17 07:25 36.8 78 20 116/76 (89) 97 Room Air Notes Mental Status: alert / awake / arousable, participated in evaluation Pt Amnestic to Procedure: Yes Nausea / Vomiting: adequately controlled Pain: adequately controlled Airway Patency, RR, SpO2: stable & adequate BP & HR: stable & adequate Hydration State: stable & adequate Anesthetic Complications: no major complications apparent
--- NOTE | 2017-05-16 16:01 | DIAGNOSTIC IMAGING REPORT ---
DOPPLER ULTRASOUND OF THE HEPATIC AND PORTAL VASCULATURE CLINICAL HISTORY: Cirrhosis. COMPARISON STUDY: Abdominal CT dated 05/16/2017. TECHNIQUE: Real-time, grayscale, and color Doppler sonography of the hepatic and portal vasculature is performed. FINDINGS: Survey imaging of the liver shows heterogeneous echotexture. The main portal vein as well as the right and left portal veins are patent with normal direction of flow. Velocities in the main portal vein measure up to 22 cm/s. The inferior vena cava is patent. The splenic vein is patent. The hepatic artery is patent with velocities measuring up to 104 cm/s. The hepatic veins are patent. IMPRESSION: The hepatic veins and portal veins are patent with normal direction of flow. Electronically signed by: Ronny Powell M.D. 05/16/2017 4:00 PM Dictated Date/Time: 05/16/2017 3:57 PM
[2017-05-16] MEDS ORDERED: CARV6.252 PO (16:07)
[2017-05-16] MEDS: NYSTATIN SUSP 500,000 U/5 ML UDC PO SCH ×2 (16:58→17:00)
[2017-05-16] MEDS ORDERED: AMITRIPTYLINE HCL 100 MG TAB PO SCH (21:00)
[2017-05-16] MEDS ORDERED: GABAPENTIN 300 MG CAP PO SCH (21:00)
[2017-05-16] MEDS: CARVEDILOL 6.25 MG TAB PO SCH (21:37)
[2017-05-17 03:39] VITALS: BP 116/75; PULSE 63; TEMP 36.6; O2SAT 90
[2017-05-17] MEDS: NSS + 20MEQ KCL 1000ML 1,000 ML IV SCH (04:05)
[2017-05-17 06:11] LABS: HEMATOCRIT 32.5 % (37-47); HEMOGLOBIN 10.8 g/dL (12.0-16.0); MEAN CELL VOLUME 89.5 fL (80-100); MEAN CORPUSCULAR HEMOGLOBIN 29.8 pg (25-34); MEAN CORPUSCULAR HGB CONC 33.2 g/dl (32-36); RED CELL DISTRIBUTION WIDTH CV 14.7 % (11.5-14.5); RED CELL DISTRIBUTION WIDTH SD 48.1 fL (36.4-46.3); WHITE BLOOD COUNT 3.16 K/uL (4.8-10.8)
[2017-05-17 06:20] LABS: INR 1.1 (0.9-1.1); PTT PATIENT 24.7 SECONDS (21.0-31.0)
[2017-05-17 06:21] LABS: MEAN PLATELET VOLUME 10.2 fL (7.4-10.4); PLATELET COUNT 84 K/uL (130-400)
[2017-05-17 06:43] LABS: ALBUMIN 2.3 gm/dl (3.4-5.0); CREATININE 0.62 mg/dl (0.60-1.20); POTASSIUM 3.8 mmol/L (3.5-5.1)
[2017-05-17 06:46] LABS: TOTAL PROTEIN 8.7 gm/dl (6.4-8.2)
[2017-05-17 07:20] VITALS: BP 139/80; PULSE 68; TEMP 36.7; O2SAT 91
[2017-05-17] MEDS: INSULIN ASPART 100 UNITS/ML 3 ML PEN SC SCH ×2 (07:53→12:09)
[2017-05-17] MEDS: INSULIN GLARGINE SOLOSTAR 100 UNITS/ML 3 ML PEN SC SCH (07:53)
[2017-05-17] MEDS: GABAPENTIN 300 MG CAP PO SCH (07:54)
[2017-05-17] MEDS: CARVEDILOL 6.25 MG TAB PO SCH (07:54)
[2017-05-17] MEDS: MULTIVITAMIN TAB PO SCH (07:55)
[2017-05-17 08:00] VITALS: O2SAT 91
[2017-05-17] MEDS: TAPENTADOL HCL 50 MG TAB PO SCH (08:01)
[2017-05-17] MEDS ORDERED: PANTOprazole SOD 40 MG TAB PO SCH (09:00)
[2017-05-17 11:23] VITALS: BP 113/74; PULSE 63; TEMP 36.7; O2SAT 94
[2017-05-17] MEDS ORDERED: INSULIN GLARGINE SOLOSTAR 100 UNITS/ML 3 ML PEN SC ONE (12:30)
[2017-05-17] MEDS ORDERED: INSU32MI13 SQ (12:39)
[2017-05-17] MEDS ORDERED: METF1000 PO (12:39)
[2017-05-17] MEDS ORDERED: INSDGIPEN SC (12:39)
[2017-05-17 12:41] VITALS: BMI 30.4
--- NOTE | 2017-05-17 12:48 | Discharge Instructions ---
Discharge Instructions Date of Service May 17, 2017. Admission Reason for Admission: Intractable nausea/vomiting/diarrhea/abdominal pain, hypomagnesemia Discharge Discharge Diagnosis / Problem: Intractable nausea/vomiting/diarrhea/abdominal pain, hypomagnesemia Discharge Goals Goal(s): Improve disease control, Diagnostic testing, Therapeutic intervention Activity Recommendations Activity Limitations: resume your previous activity Exercise/Sports Limitations: gradually increase as tolerated Shower/Bathe: no limitations Driving or Machine Use: no limitations . Instructions / Follow-Up Instructions / Follow-Up You were admitted with nausea, vomiting, diarrhea, and abdominal pain. You had some fluid inside the abdomen on CT scan that was concerning for inflammation or infection. You were treated with IV antibiotics which were then discontinued. This is most likely a viral gastroenteritis which does not require antibiotics. You had an EGD which showed grade 2 esophageal varices which will need to be banded at some point. Please follow-up with gastroenterology within the next 2-3 weeks as scheduled. Your diabetes is significantly uncontrolled. You were started on a long-acting insulin called Lantus here. Please continue this at home and your primary care doctor can increase the dose as needed. Your platelet count was also mildly low and this is secondary to your cirrhosis. You should have a CBC blood test followed periodically with your PCP. Please follow-up with your primary care physician within 1-2 weeks. Current Hospital Diet Patient's current hospital diet: Diabetes Type 2 Diet, Low Fiber Diet Discharge Diet Recommended Diet: Diabetes Type 2 Diet, Low Fiber Diet Procedures Procedures Performed: EGD CT abdomen/pelvis 2 Pending Studies Studies pending at discharge: no Laboratory Results Last 24 Hours Test 05/16/17 13:14 05/16/17 16:35 05/16/17 20:27 05/17/17 05:58 Bedside Glucose 161 mg/dl 187 mg/dl 245 mg/dl White Blood Count 3.16 K/uL Red Blood Count 3.63 M/uL Hemoglobin 10.8 g/dL Hematocrit 32.5 % Mean Corpuscular Volume 89.5 fL Mean Corpuscular Hemoglobin 29.8 pg Mean Corpuscular Hemoglobin Concent 33.2 g/dl Platelet Count 84 K/uL Mean Platelet Volume 10.2 fL RDW Standard Deviation 48.1 fL RDW Coefficient of Variation 14.7 % Neutrophils % (Manual) 55.9 % Lymphocytes % (Manual) 20.7 % Variant Lymphocytes % (manual) 18.0 % Monocytes % (Manual) 3.6 % Eosinophils % (Manual) 0.9 % Basophils % (Manual) 0.9 % Neutrophils # (Manual) 1.77 K/uL Total Absolute Neutrophils 1.77 K/uL Lymphocytes # (Manual) 0.65 K/uL Absolute Variant Lymphocytes 0.57 K/uL Total Absolute Lymphocytes 1.22 K/uL Monocytes # (Manual) 0.11 K/uL Eosinophils # (Manual) 0.03 K/uL Basophils # (Manual) 0.03 K/uL Giant Platelets 1+ Prothrombin Time 11.5 SECONDS Prothromb Time International Ratio 1.1 Activated Partial Thromboplast Time 24.7 SECONDS Partial Thromboplastin Ratio 1.0 Sodium Level 139 mmol/L Potassium Level 3.8 mmol/L Chloride Level 108 mmol/L Carbon Dioxide Level 27 mmol/L Anion Gap 4.0 mmol/L Blood Urea Nitrogen 4 mg/dl Creatinine 0.62 mg/dl Est Creatinine Clear Calc Drug Dose 116.7 ml/min Estimated GFR () 117.7 Estimated GFR (Non- 101.5 BUN/Creatinine Ratio 6.2 Random Glucose 192 mg/dl Calcium Level 8.0 mg/dl Magnesium Level 1.9 mg/dl Total Bilirubin 0.5 mg/dl Direct Bilirubin 0.1 mg/dl Aspartate Amino Transf (AST/SGOT) 17 U/L Alanine Aminotransferase (ALT/SGPT) 28 U/L Alkaline Phosphatase 170 U/L Total Protein 8.7 gm/dl Albumin 2.3 gm/dl Test 05/17/17 07:36 05/17/17 11:38 Bedside Glucose 185 mg/dl 238 mg/dl Hemoglobin A1c Test 05/16/17 09:02 Range/Units Estimated Average Glucose 246 mg/dl Hemoglobin A1c 10.2 H 4.5-5.6 % Lipid Panel Test 02/23/17 10:18 Range/Units Triglycerides Level 69 0-150 mg/dl Cholesterol Level 126 0-200 mg/dl HDL Cholesterol 39 mg/dl Cholesterol/HDL Ratio 3.2 LDL Cholesterol, Calculated 73 mg/dl Medical Emergencies . Who to Call and When: Medical Emergencies: If at any time you feel your situation is an emergency, please call 911 immediately. . Non-Emergent Contact Non-Emergency issues call your: Primary Care Provider, Leather Grader Call Non-Emergent contact if: temperature is above 100.5, your pain is not controlled, your pain is worsening, your pain is unusual for you, your pain is concerning you, you have any medication questions . . "Provider Documentation" section prepared by Adwoa Neville. .
[2017-05-17 12:55] VITALS: BP 113/74; PULSE 63; TEMP 36.7; O2SAT 94
--- NOTE | 2017-05-17 18:25 | Discharge Summary ---
Discharge Summary Date of Service May 17, 2017. Discharge Summary Admission Date: May 16, 2017 at 01:34 Discharge Date: May 17, 2017 Discharge Disposition: Home Principal Diagnosis: Gastroenteritis, intractable nausea, vomiting, diarrhea, abdominal pain Problems/Secondary Diagnoses: BARNES cirrhosis with portal hypertension Elevated alkaline phosphatase Esophageal varices-grade 2 Small amount of ascites HTN HLD CAD with h/o TX 2008 DM II, uncontrolled, with hyperglycemia Anxiety disorder Arthritis GERD Hypokalemia Hypomagnesemia Hyponatremia MGUS Chronic pain syndrome Opioid dependence Immunizations: Have You Had Influenza Vaccine: No History of Tetanus Vaccine?: Yes History of Pneumococcal: No History of Hepatitis B Vaccine: has received 2 of the 3 shots Procedures: EGD CT abdomen/pelvis 2 Doppler hepatic ultrasound-negative for portal or hepatic vein thromboses Consultations: Gastroenterology Medication Reconciliation New Medications: Insulin Pen Needle (Bd Pen Needle/Karen/Ultra) 1 Mis Mis EA SQ DAILY, #30 Insulin Glargine (Lantus Solostar) 100 Unit/Ml Inj 15 UNITS SC QAM for 30 Days, #1 BOX Changed Medications: Metformin Hcl (Glucophage) 1,000 Mg Tab 1000 MG PO BID for 30 Days (Medication details modified) HOLD UNTIL AM OF 05/18/17 Continued Medications: Amitriptyline HCl (Amitriptyline HCl) 100 Mg Tab 100 MG PO HS Bee Pollen (Bee Pollen) Unknown Strength Cap 2 CAP PO QAM Calcium Carbonate-Vitamin D (Calcium + D) 1 Tab Tab 1 TAB PO HS Carvedilol (Coreg) 6.25 Mg Tab 1 TAB PO BID for 30 Days Docusate Sodium (Docusate Sodium) 100 Mg Cap 2 CAP PO HS PRN for Constipation Gabapentin (Neurontin) 300 Mg Cap 300 MG PO BID TAKE 1 IN MORNING AND 1 AT NOON Gabapentin (Neurontin) 300 Mg Cap 600 MG PO HS PT STATES "MAY TAKE ADDITIONAL 300MG AT HS IF NEEDED", USUALL DOES NOT NEED TO TAKE. Liraglutide (Victoza) 18 Mg/3 Ml Inj 1.8 MG PO QPM Multiple Vitamin (Multivitamin) 1 Tab Tab 1 TAB PO QAM, TAB [place]-3 Fatty Acids (Fish Oil) 1 Cap Cap 1 CAP PO QAM Omeprazole (Prilosec) 40 Mg Cap 40 MG PO QAM, CAP Potassium Gluconate (Potassium Gluconate) Unknown Strength Tab 1 TAB PO HS Tapentadol Hcl (Nucynta) 75 Mg Tab 75 MG PO QID, TAB Tramadol (Ultram) 50 Mg Tab 100 MG PO HS PRN for Pain, TAB Discharge Exam Patient feeling great. No further migraine headache. No nausea or vomiting at all, abdominal pain is completely resolved. No further bowel movement since yesterday morning. She just ate a low fiber diet for lunch and feels great. She is ready for discharge to home. Review of Systems: Constitutional: No fever, No chills Eyes: No problem reported ENT: No problem reported Respiratory: No problem reported Cardiovascular: No problem reported Abdomen: No problem reported Musculoskeletal: + muscle pain (Diffuse and chronic) Genitourinary - Female: No problem reported Neurologic: No problem reported Psychiatric: No problem reported Endocrine: No problem reported Hematologic / Lymphatic: No problem reported Integumentary: No problem reported Physical Exam: General Appearance: WD/WN, no apparent distress Eyes: normal inspection, sclerae normal ENT: hearing grossly normal, pharynx normal Neck: trachea midline Respiratory/Chest: lungs clear, normal breath sounds, no respiratory distress, no accessory muscle use Cardiovascular: regular rate, rhythm, no edema, no gallop, no murmur Abdomen / GI: normal bowel sounds, non tender, soft, no organomegaly Extremities: normal inspection, no calf tenderness, normal capillary refill , no pedal edema Neurologic/Psychiatric: alert, normal mood/affect, oriented x 3 Skin: normal color, warm/dry, no rash Hospital Course This patient is a 56-year-old female with a history of Barnes cirrhosis, MGUS with chronic pain and opioid dependence, portal hypertension, esophageal varices , HTN, HL, CAD with history of TX in 2009, DM type II, anxiety, arthritis, GERD , who presents with nausea, vomiting, diarrhea, and abdominal pain. She was afebrile but had a modest leukocytosis on admission. She was initially given IV Zosyn [address] of abdomen pelvis with findings of "fluid in bilateral paracolic gutters, R>L. Possible duodenitis, ulcer disease, or diverticulitis. Neoplastic process cannot be excluded." She was admitted to the medical floor and given IV fluids and electrolyte replacement for her significant hypomagnesemia and hypokalemia. Her laboratory values the next day were much improved. She was taken for an EGD by gastroenterology who found nonbleeding grade 2 esophageal varices and portal gastropathy but no bleeding or inflammation. Most likely this was a viral gastroenteritis. The antibiotics were stopped. She had significant improvement by the next day and was tolerating a low fiber diet without any abdominal pain, nausea, vomiting, or diarrhea. She had a hepatic ultrasound which was negative for portal venous thrombosis. She was maintained on her usual home medications. In regards to her diabetes, she had significant hyperglycemia with glucose in the 400s on admission. She was started on Lantus 15 units once daily and this should be continued upon discharge along with her usual home medications. She will need continued follow-up with her PCP for her diabetes. She should follow-up with gastroenterology in the near future for possible esophageal varices banding. Total Time Spent: Greater than 30 minutes This includes examination of the patient, discharge planning, medication reconciliation, and communication with other providers. Discharge Instructions Please refer to the electronic Patient Visit Report (Discharge Instructions) for additional information. Follow-Up With PCP within 1-2 weeks With gastroenterology within 2 weeks Additional Copies To Jesse Weston M.D.; Miriam Livingston C.R.N.P
[2017-05-18] MEDS ORDERED: INSULIN GLARGINE SOLOSTAR 100 UNITS/ML 3 ML PEN SC SCH (09:00)
[2017-05-22 14:12] VITALS: Ht 170.2 cm; Wt 87.9 kg
== END 2017-05-17 13:22 | disposition home or self-care (01) | DRG 392 ==
LOC: EDBD 21:30 → C.EDC 21:32 → C.MED 05-16 01:34 → ENRESERV 05-16 01:55
PROVIDERS: ADMIT Hospitalist; ATTEND Family Medicine
PROC: 0DJ08ZZ Inspection of Upper Intestinal Tract, Via Natural or Artificial Opening Endoscopic (ICD-10-PCS; principal; 2017-05-16 13:00)
DX: A08.4 Viral intestinal infection, unspecified (principal); E87.1 Hypo-osmolality and hyponatremia; I47.1 Supraventricular tachycardia; B37.0 Candidal stomatitis; I85.00 Esophageal varices without bleeding; E87.6 Hypokalemia; I11.9 Hypertensive heart disease without heart failure; K29.80 Duodenitis without bleeding; F41.9 Anxiety disorder, unspecified; G89.4 Chronic pain syndrome; E83.42 Hypomagnesemia; K75.81 Nonalcoholic steatohepatitis (NASH); E11.65 Type 2 diabetes mellitus with hyperglycemia; D47.2 Monoclonal gammopathy; I25.2 Old myocardial infarction; K74.60 Unspecified cirrhosis of liver; I25.10 Atherosclerotic heart disease of native coronary artery without angina pectoris; Z90.710 Acquired absence of both cervix and uterus; Z87.891 Personal history of nicotine dependence; Z88.2 Allergy status to sulfonamides; Z91.012 Allergy to eggs; Z91.040 Latex allergy status; Z80.9 Family history of malignant neoplasm, unspecified; Z83.3 Family history of diabetes mellitus; Z82.49 Family history of ischemic heart disease and other diseases of the circulatory system; Z84.1 Family history of disorders of kidney and ureter; Z82.0 Family history of epilepsy and other diseases of the nervous system

== ENCOUNTER 2021-12-12 09:42 | Inpatient (IN) ==
--- NOTE | 2021-12-05 09:36 | Anesthesiology Consultation ---
Date of Service December 05, 2021 Assessment & Plan Chart Review Chart Review: Pending: Refer to Additional Notes / Consult section and Patient NOT seen in Pre Admission Testing Patient with cirrhosis, has had thrombocytopenia in the past. Will check CBC again prior to surgery. Consults Requested none History Surgery Operation Date: 12/12/21 09:05 Proposed Procedures p Laparoscopic Appendectomy and Cecal Wedge Resection, Possible Open and - Wendy Pedraza MD s Resection Left Upper Leg Mass - Wendy Pedraza MD Height/Weight Height: 5 ft 4 in Weight: 88.451 kg Allergies Allergy/AdvReac Type Severity Reaction Status Date / Time Sulfa (Sulfonamide Allergy Severe SOB, Verified 12/04/21 11:23 Antibiotics) erythema ,TROUBLE SWALLOWING RASH latex Allergy Intermediate RASH, Verified 12/04/21 11:23 ITCHY NOSE, WATERY EYES. diltiazem Allergy Mild very sleepy Verified 12/04/21 11:23 cat dander Allergy Unknown Congested Verified 12/04/21 11:42 Beta-Blockers AdvReac Mild makes pt Verified 12/04/21 11:23 (Beta-Adrenergic Bloc very sleepy Egg Derived AdvReac Mild occasionally Verified 12/04/21 11:23 has GI upset adhesive AdvReac Unknown TAPE-REDNES Verified 12/04/21 11:23 S Medications Home Medications Medication Instructions Recorded Confirmed Last Taken calcium carbonate 500 mg-vitamin 1 tab PO HS 07/11/18 12/04/21 12/01/20 08:00 D3 5 mcg (200 unit) tablet (Calcium 500 + D) ondansetron 4 mg disintegrating 4 mg PO Q8H PRN Nausea 07/11/18 12/04/21 11/24/20 tablet naproxen sodium 220 mg tablet 220 mg PO BID PRN Pain 09/10/19 12/04/21 09/10/19 12:00 1100 mg pantoprazole 40 mg tablet,delayed 40 mg PO QAM 07/22/20 12/04/21 12/02/20 04:45 release gabapentin 300 mg capsule 600 mg PO QPM 11/25/20 12/04/21 12/01/20 21:00 tapentadol 150 mg tablet,extended 150 mg PO BID #60 tabs 04/04/21 12/04/21 Unknown release,12 hr (Nucynta ER) gabapentin 300 mg capsule 300 mg PO QAM #90 caps 04/10/21 12/04/21 Unknown blood sugar diagnostic (OneTouch #100 ea 05/01/21 09/18/21 Unknown Ultra Test strips) pen needle, diabetic 31 gauge x #100 ea 05/11/21 09/18/21 Unknown 5/16" (1st Tier Unifine Pentips) liraglutide 0.6 mg/0.1 mL (18 mg/3 1.8 mg (0.3 mL) subcut HS #6 mL 09/04/21 Unknown mL) subcutaneous pen injector (Victoza 2-Ehsan) duloxetine 60 mg capsule,delayed 60 mg PO BID #60 caps 09/18/21 12/04/21 Unknown release insulin glargine 100 unit/mL (3 30 unit (0.3 mL) subcut DAILY #15 10/22/21 12/04/21 Unknown mL) subcutaneous pen (Basaglar mL KwikPen U-100 Insulin) insulin detemir U-100 100 unit/mL 30 unit (0.3 mL) subcut DAILY #3 mL 10/23/21 12/04/21 Unknown (3 mL) subcutaneous pen (Levemir FlexTouch U-100 Insulin) metformin 1,000 mg tablet 1,000 mg PO BID #180 tabs 11/03/21 12/04/21 Unknown oxycodone-acetaminophen 5 mg-325 1 tab PO Q8H PRN pain #90 tabs 11/20/21 12/04/21 Unknown mg tablet cyanocobalamin (vitamin B-12) 1,000 mcg PO QAM 12/04/21 12/04/21 Unknown 1,000 mcg tablet (Vitamin B-12) dicyclomine 10 mg capsule 10 mg PO HS PRN Pain 12/04/21 12/04/21 Unknown [id number]-vitC 1 cap PO QAM 12/04/21 12/04/21 Unknown capsule (Glucosamine Complex-MSM capsule) magnesium 500 mg tablet 15 mg PO HS 12/04/21 12/04/21 Unknown potassium 75 mg tablet 75 mg PO QAM 12/04/21 12/04/21 Unknown Past Medical History Medical History (Updated 12/04/21 @ 11:43 by Zulma Avila RN) Anemia Anxiety BPPV (benign paroxysmal positional vertigo) Chronic reflux esophagitis Cirrhosis, non-alcoholic Diabetes mellitus, type 2 IDDM Dysphagia Esophageal varices hx of banding X4 Generalized pain Hiatal hernia History of COVID-19 ~02/2020 ("FLU LIKE SYMTOMS-SWABBED AT [facility] [address] THRU) Hx of supraventricular tachycardia cardiac ablation -- no problems since. (~2006). [facility] no neuroradiologist needed currently. Hyperlipidemia Hypertension Migraine HX Multiple myeloma F/U DR GAXIOLA 10/2021 Myocardial Infarction "POSSIBLE" IN 2008 Myofascial pain syndrome Obesity Spastic colon Vitamin B12 deficiency Past Family History Family History Grandmother (Maternal) Family history of diabetes mellitus Breast cancer Myocardial infarction Mother Family history of diabetes mellitus Breast cancer Hypertension Heart disease Grandfather (Paternal) Myocardial infarction Other No family history of adverse response to anesthesia Denies family history of Ovarian cancer Prostate cancer Colorectal cancer Past Surgical History Surgical History H/O partial thyroidectomy BENIGN NODULE H/O prior ablation treatment Cardiac Ablation for SVT History of bone marrow biopsy X 15 LAST ONE APPROX 2 YRS AGO History of cardiac cath 2009-NO STENTS NEEDED History of colonoscopy History of esophagogastroduodenoscopy (EGD) X MULTIPLE History of hysterectomy SIOMARA with BSO S/P wisdom tooth extraction Social History Smoking Status: Former smoker tobacco type: cigarettes Do You Dip or Chew Tobacco: No Smoking End Date: QUIT 2003 Hx Alcohol Use: No Hx Substance Use: No substance use type: does not use Substance Use Type Other:: MARIJUANA SUPPOSITORY-NO MEDICAL MARIJUANA CARD-WILL REFRAIN
[~2021-12-12 09:42] MED LIST changes: +ACETAMINOPHEN 1000 MG/100 ML IV IV ONE; -AMT100 PO; -BEE POLLEN PO; -CALC600T9 PO; -DOCU100C31 PO; -GABA-113 PO; -LIRA18IN PO; +LR 15ML/HR IV SCH; -METF1000 PO; -MULTTAB58 PO; -OMEGCAP2 PO; -OMEP40CA41 PO; -POTAPOW29 PO; -TAPE1TAB11 PO; -TRAM-10 PO; +ceFAZolin 2000MG 2,000 MG/15 ML SYR IV SCH
[2021-12-12] MEDS ORDERED: ePHEDrine sulfate 50 MG/ML AMP IV PRN (10:36)
[2021-12-12] MEDS ORDERED: ATROPINE SULFATE 0.1 MG/ML 10ML SYR IV PRN (10:36)
[2021-12-12] MEDS ORDERED: ONDANSETRON INJ 2 MG/ML 2 ML VIAL IV PRN ×2 (10:36→15:42)
[2021-12-12] MEDS ORDERED: PROPOFOL IV EMULSION 10 MG/ML 20 ML VIAL IV ONE (11:05)
[2021-12-12] MEDS ORDERED: ROCURONIUM BROMIDE 10 MG/ML 5 ML VIAL IV ONE ×3 (11:05→12:36)
[2021-12-12] MEDS ORDERED: fentaNYL citrate 100 MCG/2 ML VIAL ONE ×2 (11:05→12:29)
[2021-12-12] MEDS ORDERED: MIDAZOLAM HCL 1 MG/ML 2ML VIAL ONE (11:05)
[2021-12-12] MEDS ORDERED: LIDOCAINE 2% 2 ML VIAL/AMP(20MG/ML) INFIL ONE (11:05)
[2021-12-12 11:15] LABS: Basophils # (auto) 0.03 K/uL (0-0.2); Basophils % (auto) 0.9 %; Eosinophils # (auto) 0.07 K/uL (0-0.50); Eosinophils % (auto) 2.1 %; Hematocrit (blood only) 34.7 % (34.1-44.9); Hemoglobin 11.3 g/dl (12.0-16.0); Immature Granulocytes # (auto) 0.01 K/uL (0.00-0.02); Immature Granulocytes % (auto) 0.3 %; Lymphocytes # (auto) 0.65 K/uL (1.2-3.4); Lymphocytes % (auto) 19.3 %; Mean Corpuscular Hemoglobin 30.2 pg (25.0-34.0); Mean Corpuscular Hgb Conc 32.6 g/dL (32.0-36.0); Mean Corpuscular Volume 92.8 fL (80.0-100.0); Mean Platelet Volume 10.2 fL (9.4-12.3); Monocytes # (auto) 0.26 K/uL (0.24-0.82); Monocytes % (auto) 7.7 %; Neutrophils # (auto) 2.35 K/uL (1.4-6.5); Neutrophils % (auto) 69.7 %; Platelet Count 96 K/uL (130-400); Platelet Estimate Decreased (Normal); RDW Coefficient of Variation 13.7 % (11.5-14.5); RDW Standard Deviation 46.1 fL (36.4-46.3); Red Blood Count 3.74 M/uL (3.93-5.22); White Blood Count 3.37 K/ul (4.8-10.8)
--- NOTE | 2021-12-12 11:30 | History & Physical Bridge Note ---
Date of Service December 12, 2021 History & Physical Bridge Note I have examined the patient, reviewed the History & Physical and in the interval since the performance of the History & Physical I have noted the following changes of clinical significance: no changes noted
[2021-12-12] MEDS ORDERED: BUPIVACAINE 0.5 % 5 MG/1 ML MPF 30ML VIAL ONE (11:37)
[2021-12-12] MEDS ORDERED: LIDOCAINE 1% LOCAL 20 ML VIAL ONE (11:37)
[2021-12-12] MEDS ORDERED: DEXTROSE 50% 50 ML SYRINGE IV ONE (12:19)
[2021-12-12] MEDS ORDERED: LABETALOL HCL IV 5 MG/ML 20ML IV ONE ×2 (13:18→14:19)
[2021-12-12] MEDS ORDERED: DEXAMETHASONE SOD INJ 4 MG/ML VIAL ONE (13:18)
[2021-12-12] MEDS ORDERED: ONDANSETRON INJ 2 MG/ML 2 ML VIAL ONE (13:18)
[2021-12-12] MEDS ORDERED: GLYCOPYRROLATE 0.2 MG/ML VIAL ONE (13:30)
[2021-12-12] MEDS ORDERED: NEOSTIGMINE METHYLSULFATE 1 MG/ML 10ML VIAL ONE (13:30)
--- NOTE | 2021-12-12 14:04 | Post Operative Brief Note ---
Immediate Post Op Note v1 Date of Surgery December 12, 2021 Pre & Post Diagnosis Operation Date: 12/12/21 11:20 Pre-Op Diagnosis: caecal Polyps; left leg soft tissue mass Post-Op Diagnosis: caecal Polyps; left leg soft tissue mass I identified the patient and participated in the time-out.: Yes Procedure Operation Date: 12/12/21 11:20 Actual Procedures p Laparoscopic Appendectomy and Cecal Wedge Resection, Lysis of Adhesions(Not Applicable) - Wendy Pedraza MD s Left Upper Leg Mass Resection(Left) - Wendy Pedraza MD Surgeon Wendy Pedraza MD Airfield Manager health record technician Estimated Blood Loss 10 Findings Consistent with Post-Op Diagnosis left upper leg lipoma, size 4x5cm, Fluids 1200ml Specimens appendix , partial caecum, left upper leg lipoma, Drains Bernal Catheter Anesthesia Type General Complications none Disposition Accompanied Patient To Recovery: Yes
[2021-12-12] MEDS: fentaNYL citrate 100 MCG/2 ML VIAL IV PRN ×3 (14:29→14:50)
[2021-12-12] MEDS ORDERED: HYDROmorphone INJ 0.5 MG/0.5 ML SYR IV PRN (15:42)
[2021-12-12] MEDS ORDERED: DICYCLOMINE HCL 10 MG CAP PO PRN (15:42)
[2021-12-12] MEDS ORDERED: NAPROXEN 250 MG TAB PO PRN (15:42)
[2021-12-12] MEDS ORDERED: ONDANSETRON 4 MG OD TAB PO PRN (15:42)
--- NOTE | 2021-12-12 16:46 | Anesthesiology Progress Note ---
Date of Service December 12, 2021 Anesthesia Post Procedure Vital Signs Vital Signs: Temp Pulse Pulse Resp BP Pulse Ox O2 Del Method 12/12/21 16:35 98.2 F 75 16 137/80 96 Nasal Cannula 12/12/21 16:13 98.8 F 76 18 145/82 H 97 Nasal Cannula 12/12/21 15:47 98.2 F 76 18 143/78 H 94 Nasal Cannula 12/12/21 15:47 Nasal Cannula 12/12/21 15:15 97.7 F 73 12 156/92 H 93 Nasal Cannula 12/12/21 15:05 75 12 153/84 H 94 Nasal Cannula 12/12/21 14:55 74 12 147/84 H 94 Nasal Cannula 12/12/21 14:45 72 13 142/72 H 94 Room Air 12/12/21 14:35 80 12 154/86 H 99 Oxymask 12/12/21 14:25 78 14 159/89 H 94 Oxymask 12/12/21 14:14 97.7 F 80 15 169/92 H 95 Oxymask 12/12/21 10:08 98.4 F 79 20 168/88 H 98 Room Air O2 Flow Rate 12/12/21 16:35 3 12/12/21 16:13 2 12/12/21 15:47 2 12/12/21 15:47 2 12/12/21 15:15 2 12/12/21 15:05 2 12/12/21 14:55 2 12/12/21 14:45 12/12/21 14:35 5 12/12/21 14:25 5 12/12/21 14:14 5 12/12/21 10:08 Pain Intensity Generalized: Pain Intensity: 7 Abdomen: Pain Intensity: 5 Transfer of Care Handoff Completed per policy Notes Mental Status: alert / awake / arousable and participated in evaluation Patient Amnestic to Procedure: Yes Nausea / Vomiting: adequately controlled Pain: adequately controlled Airway Patency, RR, SpO2: stable & adequate BP & HR: stable & adequate Hydration State: stable & adequate Anesthetic Complications: no major complications apparent and Pt Satisfied with anesthetic care
[2021-12-12] MEDS: LACTATED RINGER'S 1,000 ML IV SCH (16:49)
[2021-12-12] MEDS ORDERED: metFORMIN HCL 500 MG TAB PO SCH (17:00)
[2021-12-12] MEDS ORDERED: PHARMACY GLYCEMIC MGMT CONSULT PRN (17:23)
[2021-12-12] MEDS ORDERED: DEXTROSE 50% 50 ML SYRINGE IV PRN (18:15)
[2021-12-12] MEDS ORDERED: GLUCOSE 40% GEL 15 GM TUBE PO PRN (18:15)
[2021-12-12] MEDS ORDERED: GLUCAGON FOR INJ 1 MG VIAL IM PRN (18:15)
[2021-12-12] MEDS ORDERED: GLUCOSE 10 TAB/TUBE PO PRN (18:15)
[2021-12-12] MEDS ORDERED: CARBOHYDRATES FOR HYPOGLYCEMIA PO PRN (18:15)
[2021-12-12] MEDS: INSULIN ASPART PER UNIT SC SCH ×2 (18:21→23:58)
[2021-12-12] MEDS: oxyCODONE/ACETAMINOPHEN 5mg/325mg TAB PO PRN (18:30)
[2021-12-12 18:41] LABS: Albumin Globulin Ratio 0.6 (0.9-2); Albumin Level 3.1 gm/dl (3.4-5.0); Bilirubin,Total 0.4 mg/dl (0.2-1.0); Calcium 8.5 mg/dl (8.5-10.1); Est GFR (African American) 121.9 ml/min; Est GFR (Non-African American) 105.2 ml/min; Globulin 5.2 gm/dl (2.5-4.0); Magnesium 1.4 mg/dl (1.7-2.4); Potassium 3.7 mmol/L (3.5-5.1); Total Protein 8.3 gm/dl (6.0-8.3)
--- NOTE | 2021-12-12 19:11 | Hospitalist Consultation ---
Date of Consultation December 12, 2021 Assessment & Plan (1) Appendix disease: s/p appendectomy and caecal wedge resection [12/12] due to everted appendix with mucosal granularity and inflammatory changes at the appendiceal orifice. Pain and VTE management per surgery CBC, BMP with AM labs (2) Leg mass: s/p Left Upper Leg Mass Resection [12/12] - 1-1.5 year ?fatty tumor lump Pain and VTE prophylaxis per surgery (3) Diabetes mellitus: Consult pharmacy for glycemic control (4) BARNES (nonalcoholic steatohepatitis): (5) Chronic reflux esophagitis: Continue pantoprazole 40mg PO daily (converted to 40mg IV BID by surgery, recommend switch back to PO when ok by surgery) (6) Smoldering multiple myeloma: Under [facility] oncology. Fatty tumor removed above not suspected to be related. Continue gabapentin and duloxetine for pain relief Plan VTE Prophylaxis - deferred to surgery Diet - per surgery Disposition - admitted to med/surg History of Present Illness Reason for Consultation: co-manage Attending Physician: Wendy Pedraza MD History of Present Illness Rachel Livingston is a 61 year old female here for elective caecal wedge resection and left leg mass removal performed by Dr Pedraza today. No complication from surgery note. Estimated blood loss 10ml. Patient still NPO. Pain under control. No acute concerns or questions from me. She is on Percocet, gabapentin and duloxetine for left leg pain due to smoldering multiple myeloma. She takes insulin and metformin for type 2 diabetes mellitus. She takes pantoprazole daily for heartburn. Allergies Allergy/AdvReac Type Severity Reaction Status Date / Time Sulfa (Sulfonamide Allergy Severe SOB, Verified 12/12/21 10:25 Antibiotics) erythema ,TROUBLE SWALLOWING RASH latex Allergy Intermediate RASH, Verified 12/12/21 10:25 ITCHY NOSE, WATERY EYES. diltiazem Allergy Mild very sleepy Verified 12/12/21 10:25 cat dander Allergy Unknown Congested Verified 12/12/21 10:25 Beta-Blockers AdvReac Mild makes pt Verified 12/12/21 10:25 (Beta-Adrenergic Bloc very sleepy Egg Derived AdvReac Mild occasionally Verified 12/12/21 10:25 has GI upset adhesive AdvReac Unknown TAPE-REDNES Verified 12/12/21 10:25 S Home Medications Medication Instructions Recorded Confirmed Type calcium carbonate 500 mg-vitamin 1 tab PO HS 07/11/18 12/12/21 History D3 5 mcg (200 unit) tablet (Calcium 500 + D) ondansetron 4 mg disintegrating 4 mg PO Q8H PRN Nausea 07/11/18 12/12/21 History tablet naproxen sodium 220 mg tablet 220 mg PO BID PRN Pain 09/10/19 12/12/21 History pantoprazole 40 mg tablet,delayed 40 mg PO QAM 07/22/20 12/12/21 History release gabapentin 300 mg capsule 600 mg PO QPM 11/25/20 12/12/21 History gabapentin 300 mg capsule 300 mg PO QAM #90 caps 04/10/21 12/12/21 Rx blood sugar diagnostic (OneTouch #100 ea 05/01/21 09/18/21 Rx Ultra Test strips) pen needle, diabetic 31 gauge x #100 ea 05/11/21 09/18/21 Rx 5/16" (1st Tier Unifine Pentips) liraglutide 0.6 mg/0.1 mL (18 mg/3 1.8 mg (0.3 mL) subcut HS #6 mL 09/04/21 12/12/21 Rx mL) subcutaneous pen injector (Victoza 2-Ehsan) insulin glargine 100 unit/mL (3 30 unit (0.3 mL) subcut DAILY #15 10/22/21 12/04/21 Rx mL) subcutaneous pen (Basaglar mL KwikPen U-100 Insulin) insulin detemir U-100 100 unit/mL 30 unit (0.3 mL) subcut DAILY #3 mL 10/23/21 12/12/21 Rx (3 mL) subcutaneous pen (Levemir FlexTouch U-100 Insulin) metformin 1,000 mg tablet 1,000 mg PO BID #180 tabs 11/03/21 12/12/21 Rx oxycodone-acetaminophen 5 mg-325 1 tab PO Q8H PRN pain #90 tabs 11/20/21 12/12/21 Rx mg tablet cyanocobalamin (vitamin B-12) 1,000 mcg PO QAM 12/04/21 12/12/21 History 1,000 mcg tablet (Vitamin B-12) dicyclomine 10 mg capsule 10 mg PO HS PRN Pain 12/04/21 12/12/21 History [id number]-vitC 1 cap PO QAM 12/04/21 12/12/21 History capsule (Glucosamine Complex-MSM capsule) magnesium 500 mg tablet 15 mg PO HS 12/04/21 12/12/21 History potassium 75 mg tablet 75 mg PO QAM 12/04/21 12/12/21 History duloxetine 30 mg capsule,delayed 30 mg PO BID 12/12/21 12/12/21 History release Patient History Medical History (Updated 12/12/21 @ 20:53 by Sherman Lechuga MD) Anemia Anxiety BPPV (benign paroxysmal positional vertigo) Chronic reflux esophagitis Cirrhosis, non-alcoholic Diabetes mellitus, type 2 IDDM Dysphagia Esophageal varices hx of banding X4 Generalized pain Hiatal hernia History of COVID-19 ~02/2020 ("FLU LIKE SYMTOMS-SWABBED AT [facility] [address] THRU) Hx of supraventricular tachycardia cardiac ablation -- no problems since. (~2006). [facility] no supervisor sewing department needed currently. Hyperlipidemia Hypertension Migraine HX Multiple myeloma F/U DR GAXIOLA 10/2021 Myocardial Infarction "POSSIBLE" IN 2008 Myofascial pain syndrome Obesity Smoldering multiple myeloma Spastic colon Vitamin B12 deficiency Surgical History H/O partial thyroidectomy BENIGN NODULE H/O prior ablation treatment Cardiac Ablation for SVT History of bone marrow biopsy X 15 LAST ONE APPROX 2 YRS AGO History of cardiac cath 2008-NO STENTS NEEDED History of colonoscopy History of esophagogastroduodenoscopy (EGD) X MULTIPLE History of hysterectomy [place] with BSO S/P wisdom tooth extraction Family History Grandmother (Maternal) Family history of diabetes mellitus Breast cancer Myocardial infarction Mother Family history of diabetes mellitus Breast cancer Hypertension Heart disease Grandfather (Paternal) Myocardial infarction Other No family history of adverse response to anesthesia Denies family history of Ovarian cancer Prostate cancer Colorectal cancer Social History Smoking Status: Former smoker Smoking End Date: QUIT 2003; Second Hand Exposure: No; Do You Dip or Chew Tobacco: No; Tobacco Cessation Education Requested by Patient: No Hx Alcohol Use: No Hx Substance Use: No Preferred Language: Filipino Communication Ability: Effective Product Expert Required: No Beliefs That Will Affect Care: None marital status: Current Living Situation: Spouse current occupational status: employed current occupation: Manager Supplier How many Children do You have: 1 Other Information That Helps Us Care for You: No Feels Safe at Home: Yes Safety Concerns: Feels Safe At This Time during the past year weight has: remained stable Dental Care, Regularly: No Seatbelt Use: always Sunscreen Use: No Assistive Devices: Glasses Review of Systems Review of Systems: All systems reviewed & are unremarkable except as noted in Subjective Physical Exam Constitutional: WD/WN, vitals as above Eyes: + anicteric sclerae; normal pupil size Neck: trachea midline, no thyromegaly Respiratory: normal respiratory effort, lungs clear to auscultation Cardiovascular: Rate/Rhythm: regular rate and regular rhythm Heart Sounds: + murmur (systolic) Extremities: normal capillary refill; no calf tenderness and no pedal edema Gastrointestinal (Abdomen): Inspection/Auscultation: + hypoactive bowel sounds Percussion/Palpation: + abdomen tender (around operation site only) and abdomen soft; no guarding and abdomen not rigid Musculoskeletal: no cyanosis or clubbing, extremities motor strength 5/5 Skin: no rashes, warm and dry Neurologic: moves all extremities and awake; not confused Psychiatric: A+Ox3, euthymic affect Results & Data Results & Data ([facility]) Vital Signs (Past 12 Hours) Vital Signs Temp Pulse Pulse Resp BP Pulse Ox O2 Del Method 12/12/21 17:35 36.8 C 79 16 146/81 H 95 Nasal Cannula 12/12/21 16:35 36.8 C 75 16 137/80 96 Nasal Cannula 12/12/21 16:13 37.1 C 76 18 145/82 H 97 Nasal Cannula 12/12/21 15:47 36.8 C 76 18 143/78 H 94 Nasal Cannula 12/12/21 15:47 Nasal Cannula 12/12/21 15:15 36.5 C 73 12 156/92 H 93 Nasal Cannula 12/12/21 15:05 75 12 153/84 H 94 Nasal Cannula 12/12/21 14:55 74 12 147/84 H 94 Nasal Cannula 12/12/21 14:45 72 13 142/72 H 94 Room Air 12/12/21 14:35 80 12 154/86 H 99 Oxymask 12/12/21 14:25 78 14 159/89 H 94 Oxymask 12/12/21 14:14 36.5 C 80 15 169/92 H 95 Oxymask 12/12/21 10:08 36.9 C 79 20 168/88 H 98 Room Air O2 Flow Rate 12/12/21 17:35 3 12/12/21 16:35 3 12/12/21 16:13 2 12/12/21 15:47 2 12/12/21 15:47 2 12/12/21 15:15 2 12/12/21 15:05 2 12/12/21 14:55 2 12/12/21 14:45 12/12/21 14:35 5 12/12/21 14:25 5 12/12/21 14:14 5 12/12/21 10:08 Laboratory Results Abnormal lab results 12/12/21 12/12/21 12/12/21 Range/Units 09:56 10:31 12:15 WBC 3.37 L (4.8-10.8) K/ul RBC 3.74 L (3.93-5.22) M/uL Hgb 11.3 L (12.0-16.0) g/dl Plt Count 96 L (130-400) K/uL Lymph # (Auto) 0.65 L (1.2-3.4) K/uL Platelet Estimate Decreased L (Normal) Creatinine (0.6-1.2) mg/dl Glucose (70-99(Fasting)) mg/dl POC Glucose 142 H 107 H (70-99) mg/dl Magnesium (1.7-2.4) mg/dl AST (13-39) U/L Albumin (3.4-5.0) gm/dl Globulin (2.5-4.0) gm/dl Albumin/Globulin Ratio (0.9-2) 12/12/21 12/12/21 12/12/21 Range/Units 13:16 14:18 16:53 WBC (4.8-10.8) K/ul RBC (3.93-5.22) M/uL Hgb (12.0-16.0) g/dl Plt Count (130-400) K/uL Lymph # (Auto) (1.2-3.4) K/uL Platelet Estimate (Normal) Creatinine (0.6-1.2) mg/dl Glucose (70-99(Fasting)) mg/dl POC Glucose 117 H 151 H 183 H (70-99) mg/dl Magnesium (1.7-2.4) mg/dl AST (13-39) U/L Albumin (3.4-5.0) gm/dl Globulin (2.5-4.0) gm/dl Albumin/Globulin Ratio (0.9-2) 12/12/21 Range/Units 17:53 WBC (4.8-10.8) K/ul RBC (3.93-5.22) M/uL Hgb (12.0-16.0) g/dl Plt Count (130-400) K/uL Lymph # (Auto) (1.2-3.4) K/uL Platelet Estimate (Normal) Creatinine 0.50 L (0.6-1.2) mg/dl Glucose 178 H (70-99(Fasting)) mg/dl POC Glucose (70-99) mg/dl Magnesium 1.4 L (1.7-2.4) mg/dl AST 12 L (13-39) U/L Albumin 3.1 L (3.4-5.0) gm/dl Globulin 5.2 H (2.5-4.0) gm/dl Albumin/Globulin Ratio 0.6 L (0.9-2) PG Care Time/CCT Total # of Minutes Spent Total Time Spent with Patient: Total time spent is greater than 50% in coordination of care (as documented) at patient's floor/unit and/or counseling patient: Coding Level of Care Code 08371 Inpt Consult Level 4 Diagnoses Appendix disease K38.9 Leg mass R22.40 Diabetes mellitus E11.9 BARNES (nonalcoholic steatohepatitis) K75.81 Chronic reflux esophagitis K21.0 Smoldering multiple myeloma D47.2
[2021-12-12] MEDS: MAGNESIUM SULFATE / D5W 1 GM/100 ML BAG IV SCH ×3 (19:58→23:51)
[2021-12-12] MEDS: ceFAZolin 2000MG 2,000 MG/15 ML SYR IV SCH (19:58)
[2021-12-12] MEDS: PANTOprazole 40 MG in SYRINGE 0 ML IV SCH (20:00)
[2021-12-12] MEDS: GABAPENTIN 600 MG TAB PO SCH (20:01)
[2021-12-12] MEDS: CALCIUM 600MG + VIT D 400 IU TAB PO SCH (20:01)
[2021-12-12] MEDS ORDERED: DULoxetine HCL 60 MG CAP PO SCH (21:00)
[2021-12-12] MEDS ORDERED: NON-FORMULARY MEDICATION (Magnesium 500 mg Tablet) PO SCH (21:00)
[2021-12-12] MEDS: DULoxetine HCL 30 MG CAP PO SCH (21:35)
[2021-12-13] MEDS: oxyCODONE/ACETAMINOPHEN 5mg/325mg TAB PO PRN ×5 (00:01→20:20)
--- NOTE | 2021-12-13 00:01 | Operative Report (OR) ---
DATE OF PROCEDURE: 12/12/2021 PREOPERATIVE DIAGNOSES: Cecal polyps and soft tissue mass on the left upper leg. POSTOPERATIVE DIAGNOSES: Cecal polyps and soft tissue mass on left leg and adhesion intra-abdominal wall. OPERATION: Laparoscopy, appendectomy, cecal wedge resection, lysis of adhesion, and resection of sof t tissue mass on left upper leg. SURGEON: Wendy Pedraza MD. ANESTHESIA: General. ESTIMATED BLOOD LOSS: About 10 mL. FINDINGS: Normal finding on the appendix and lipoma on left upper leg, the lipoma size about 4 x 5 c m. COMPLICATIONS: None. INDICATIONS FOR THE PROCEDURE: This is a 61-year-old female who presented with cecal polyps. The ce ricci polyp was located at the appendiceal orifice and the GI doctor recommended to do appendectomy and cecal wedge resection. Also, the patient had a soft tissue mass on the left upper leg. The patient wanted to have resection of soft tissue mass on the left upper leg. I did talk to the patient about the benefit, risk, alternate procedure. I indicated the risks may include, but not limited to, such as bleeding, infection, injury to other organs, bowel obstruction, bowel leak, incisional hernia and left upper leg mass recurrence. The patient understands. She signed informed consent and I answere d all questions. DETAILS OF PROCEDURE: After we identified the patient and verified the procedure, we brought the pat ient to the OR, put the patient in the supine position. The patient received SCD on bilateral legs t o prevent DVT. Also, patient received 2 grams of Ancef IV for prophylactic antibiotic. The patient received general anesthesia without difficulty. Also, patient had a Bernal insertion for drainage of urine. The abdomen and left upper leg were prepped and draped in routine sterile fashion. After afshan eout, I injected the local anesthesia by using 1% lidocaine mixed with 0.5% Marcaine just above the u mbilicus. Then, I made a small incision just above umbilicus, opened fascia, opened peritoneum. Und er direct vision, put a Fantasma trocar in, connected to CO2 to create pneumoperitoneum, flow rate at 6 liters per minute, pressure not more than 14 mmHg. Then, we put a camera in, looked around the abdomen. Normal finding on the small bowel, large bowel and appendix shows a normal finding. At this moment, I put another two 5 mm trocars on the left lower quadrant area, then we used the Harmonic to take down the appendiceal, and rechecked, no active blee ding. Then, I used a 45 mm Endo-ALTON stapler to do the cecal wedge resection. Once we fired the stap le a few times and we completed the wedge resection of cecum, rechecked, the staple line intact, no l eak, no active bleeding. Then, we removed the specimen through the catch bag. Then, we reinserted the Fantasma trocar in, connected to CO2 to create pneumoperitoneum, again looked a round the abdomen and no active bleeding or leak from staple line. Then, we removed all trocars unde r direct vision and also before we removed the trocar, we found the patient had anterior adhesion of abdominal wall. We did use the Harmonic to take down the omental adhesions to the anterior abdominal wall for lysis of adhesion. Rechecked, no active bleeding. Then, we removed all trocars under dire ct vision. No active bleeding from the trocar site. Pneumoperitoneum was released, then I closed th e umbilical incision fascial layer by using 0 Vicryl [id number] x2, closed subcutaneous layer by using 2-0 Vicryl interruptedly, closed skin by using 4-0 Vicryl continuous running, closed another t wo 5 mm trocar site of skin only by using 4-0 Vicryl. Then, we put the dressing on. Now we moved on to the left upper leg and after timeout, I injected the local anesthesia by using 1% lidocaine mixed with 0.5% Marcaine on the left upper leg, then I made a 3 cm incision. I dissected t he subcutaneous layer. We found the patient had a lipoma, the lipoma size about 4 x 5 cm. I complet roberto removed the lipoma deep to subcutaneous layer. Hemostasis was obtained. Then I closed the subcu taneous layer by using 2-0 Vicryl interruptedly, closed skin by using 3-0 nylon interruptedly, then w e put the dressing on. The patient tolerated the procedure well. All instrument, needle and sponge counts were correct x2 at the end of the case. The patient was tra nsferred to recovery room in stable condition. The specimen was sent to pathology and the Bernal cath eter was removed in the OR. After the procedure, I did talk to the patient and the family member abou t the OR finding and the procedure we did, they understand. The [facility]. Job ID: [id number]
[2021-12-13] MEDS: LACTATED RINGER'S 1,000 ML IV SCH ×2 (01:05→13:33)
[2021-12-13] MEDS: ceFAZolin 2000MG 2,000 MG/15 ML SYR IV SCH ×3 (03:40→20:20)
[2021-12-13] MEDS: INSULIN ASPART PER UNIT SC SCH ×3 (05:15→18:18)
[2021-12-13 06:48] LABS: Hematocrit (blood only) 32.1 % (34.1-44.9); Hemoglobin 10.9 g/dl (12.0-16.0); Mean Corpuscular Hemoglobin 30.9 pg (25.0-34.0); Mean Corpuscular Volume 90.9 fL (80.0-100.0); Platelet Count 100 K/uL (130-400); RDW Coefficient of Variation 14.1 % (11.5-14.5); Red Blood Count 3.53 M/uL (3.93-5.22)
[2021-12-13 06:57] LABS: Basophils # (auto) 0.02 K/uL (0-0.2); Basophils % (auto) 0.4 %; Eosinophils # (auto) 0.02 K/uL (0-0.50); Eosinophils % (auto) 0.4 %; Immature Granulocytes # (auto) 0.01 K/uL (0.00-0.02); Immature Granulocytes % (auto) 0.2 %; Lymphocytes # (auto) 0.78 K/uL (1.2-3.4); Lymphocytes % (auto) 15.6 %; Monocytes # (auto) 0.43 K/uL (0.24-0.82); Monocytes % (auto) 8.6 %; Neutrophils # (auto) 3.74 K/uL (1.4-6.5); Neutrophils % (auto) 74.8 %
[2021-12-13 07:01] LABS: Albumin Globulin Ratio 0.7 (0.9-2); Albumin Level 3.1 gm/dl (3.4-5.0); BUN Creatinine Ratio 14.5 (10-20); Bilirubin,Total 0.4 mg/dl (0.2-1.0); Calcium 8.5 mg/dl (8.5-10.1); Est GFR (African American) 113.6 ml/min; Globulin 4.4 gm/dl (2.5-4.0); Potassium 3.6 mmol/L (3.5-5.1); Total Protein 7.5 gm/dl (6.0-8.3)
[2021-12-13] MEDS: PANTOprazole 40 MG in SYRINGE 0 ML IV SCH ×2 (08:10→20:20)
[2021-12-13] MEDS: GABAPENTIN 300 MG CAP PO SCH (08:13)
[2021-12-13] MEDS: CYANOCOBALAMIN (B-12) 500 MCG TABLET PO SCH (08:14)
[2021-12-13] MEDS: GLUCOSAMINE SULFATE 500 MG CAP PO SCH (08:14)
[2021-12-13] MEDS: DULoxetine HCL 30 MG CAP PO SCH ×2 (08:15→20:22)
--- NOTE | 2021-12-13 08:45 | Hospitalist Progress Note ---
Date of Service December 13, 2021 Assessment & Plan (1) Appendix disease: Plan: POD# 1 s/p appendectomy and caecal wedge resection on 12/[address] Pedraza due to everted appendix with mucosal granularity and inflammatory changes at the appendiceal orifice. pathology pending Pain management/bowel regimen/PT/OT per primary service WBC 5k, Afebrile Hgb 11.3--> 10.9, acute blood loss from surgery and dilutional on IVF Remains NPO per surgery Remains on PPI IV BID --> change to PO once taking oral intake Continues on LR @ 80cc/hr per general surgery Ancef abx Continued NPO/ambulation Likely advancement of diet/possible discharge tomorrow per patient DVT prophylaxis per primary service (2) Leg mass: Plan: s/p Left Upper Leg Mass Resection [12/12] - 1-1.5 year ?fatty tumor lump Pain and VTE prophylaxis per surgery (3) Diabetes mellitus: Plan: Last a1c 6.14 September 2021 pharmacy on consult for glycemic control BSGs acceptable, monitor (4) BARNES (nonalcoholic steatohepatitis): Plan: Also with cirrhosis with esophageal varices s/p banding procedure for esophageal varices rec adequate BP control--> does not appear to be on any antiHTN agents outpatient (5) Chronic reflux esophagitis: Plan: On protonix IV BID per surgery, rec switching back to PO once ok by surgery of note, also on naproxen outpatient BID prn pain, would limit. (6) Smoldering multiple myeloma: Plan: Under [facility] oncology, iron IV replacement in the past with Ferric Derisomaltose (monoferric) September 2020 Fatty tumor removed above not suspected to be related. Continue gabapentin and duloxetine for pain relief has not required any specific treatment for underlying MM also b12 def 267 in september, cont replacement (7) Hypomagnesemia: Plan: mag 1.6 in september, checked 12/12 low at 1.4 and 3gm IV ordered Mag 1.9 on AM labs, suspect 2nd to PPI use monitor level in AM on PO supplementation outpatient will order additional 1gm to assist with Bm Plan VTE Prophylaxis - deferred to surgery, tatiana in setting of patient with esophageal varicies requiring banding Thank you for allowing hospitalist service to participate in the care of Ms Livingston. Hospitalist service will sign off. Please call with any questions/concerns. Admission and Anticipated Discharge Date Admission Date: December 12, 2021 Supervising Physician Co-Signing Physician Notes PA Supervision Note: I did not personally see or examine the patient today, but I verified all sanchez points of SELENE Leach's assessment and plan with the following exceptions/additions: None Subjective Patient evaluated this morning. Doing well, ambulating the werner. Pain much improved but with a little bit of a headache, chronic issues with sinuses and was going to go to bathroom to wet a washcloth to help with her dry nose. Discussed ordering nasal saline, she would appreciate this. Nothing yet to eat, but admits to passing lots of gas this morning. No BM yet. Abdomen soft, incisions look good. Anticipating diet/possible discharge tomorrow. No chest pain/shortness of breath/cough/sputum production/nausea or vomiting. Review of Systems Review of Systems: All systems reviewed & are unremarkable except as noted in HPI & below Physical Exam Constitutional: WD/WN, vitals as above Eyes: + anicteric sclerae; normal pupil size ENMT: mmm, trachea midline Respiratory: normal respiratory effort, lungs clear to auscultation slightly diminished in the bases Cardiovascular: Rate/Rhythm: regular rate and regular rhythm Heart Sounds: + murmur (systolic) Extremities: normal capillary refill; no calf tenderness and no pedal edema Gastrointestinal (Abdomen): Inspection/Auscultation: + hypoactive bowel sounds Percussion/Palpation: + abdomen tender (slightly, around operation site only) and abdomen soft; no guarding and abdomen not rigid Musculoskeletal: no cyanosis or clubbing, extremities motor strength 5/5 Skin: no rashes, warm and dry Neurologic: moves all extremities and awake; not confused Psychiatric: A+Ox3, euthymic affect Results & Data Results & Data ([facility]) Vital Signs (Past 12 Hours) Vital Signs Temp Pulse Resp BP BP Pulse Ox O2 Del Method 12/13/21 07:25 37.2 C 77 16 126/70 92 Room Air 12/12/21 21:57 37.1 C 78 16 143/76 H 94 Room Air 12/12/21 20:44 36.8 C 82 16 159/87 H 91 Room Air Laboratory Results 12/13/21 12/13/21 12/13/21 Range/Units 05:30 05:30 05:30 WBC 5.00 (4.8-10.8) K/ul RBC 3.53 L (3.93-5.22) M/uL Hgb 10.9 L (12.0-16.0) g/dl Hct 32.1 L (34.1-44.9) % MCV 90.9 (80.0-100.0) fL MCH 30.9 (25.0-34.0) pg MCHC 34.0 (32.0-36.0) g/dL RDW Std Deviation 46.0 (36.4-46.3) fL RDW Coeff of Julio Cesar 14.1 (11.5-14.5) % Plt Count 100 L (130-400) K/uL MPV 11.0 (9.4-12.3) fL Immature Gran % (Auto) 0.2 % Neut % (Auto) 74.8 % Lymph % (Auto) 15.6 % Amelia % (Auto) 8.6 % Eos % (Auto) 0.4 % Baso % (Auto) 0.4 % Neut # (Auto) 3.74 (1.4-6.5) K/uL Lymph # (Auto) 0.78 L (1.2-3.4) K/uL Amelia # (Auto) 0.43 (0.24-0.82) K/uL Eos # (Auto) 0.02 (0-0.50) K/uL Baso # (Auto) 0.02 (0-0.2) K/uL Immature Gran # (Auto) 0.01 (0.00-0.02) K/uL Sodium 139 (136-145) mmol/L Potassium 3.6 (3.5-5.1) mmol/L Chloride 104 (98-107) mmol/L Carbon Dioxide 30 (21-32) mmol/L Anion Gap 5 (3-11) BUN 9 (6-23) mg/dl Creatinine 0.62 (0.6-1.2) mg/dl Est Cr Clr Drug Dosing 104.0 ml/min Est GFR ( Amer) 113.6 ml/min Est GFR (Non-Af Amer) 98.0 ml/min BUN/Creatinine Ratio 14.5 (10-20) Glucose 126 H (70-99(Fasting)) mg/dl POC Glucose (70-99) mg/dl Calcium 8.5 (8.5-10.1) mg/dl Magnesium 1.9 (1.7-2.4) mg/dl Total Bilirubin 0.4 (0.2-1.0) mg/dl AST 11 L (13-39) U/L ALT 11 (7-52) U/L Alkaline Phosphatase 80 (34-104) U/L Total Protein 7.5 (6.0-8.3) gm/dl Albumin 3.1 L (3.4-5.0) gm/dl Globulin 4.4 H (2.5-4.0) gm/dl Albumin/Globulin Ratio 0.7 L (0.9-2) 12/13/21 12/12/21 12/12/21 Range/Units 05:11 23:50 17:53 WBC (4.8-10.8) K/ul RBC (3.93-5.22) M/uL Hgb (12.0-16.0) g/dl Hct (34.1-44.9) % MCV (80.0-100.0) fL MCH (25.0-34.0) pg MCHC (32.0-36.0) g/dL RDW Std Deviation (36.4-46.3) fL RDW Coeff of Julio Cesar (11.5-14.5) % Plt Count (130-400) K/uL MPV (9.4-12.3) fL Immature Gran % (Auto) % Neut % (Auto) % Lymph % (Auto) % Amelia % (Auto) % Eos % (Auto) % Baso % (Auto) % Neut # (Auto) (1.4-6.5) K/uL Lymph # (Auto) (1.2-3.4) K/uL Amelia # (Auto) (0.24-0.82) K/uL Eos # (Auto) (0-0.50) K/uL Baso # (Auto) (0-0.2) K/uL Immature Gran # (Auto) (0.00-0.02) K/uL Sodium 137 (136-145) mmol/L Potassium 3.7 (3.5-5.1) mmol/L Chloride 103 (98-107) mmol/L Carbon Dioxide 29 (21-32) mmol/L Anion Gap 5 (3-11) BUN 8 (6-23) mg/dl Creatinine 0.50 L (0.6-1.2) mg/dl Est Cr Clr Drug Dosing 129.0 ml/min Est GFR ( Amer) 121.9 ml/min Est GFR (Non-Af Amer) 105.2 ml/min BUN/Creatinine Ratio 16.0 (10-20) Glucose 178 H (70-99(Fasting)) mg/dl POC Glucose 113 H 148 H (70-99) mg/dl Calcium 8.5 (8.5-10.1) mg/dl Magnesium 1.4 L (1.7-2.4) mg/dl Total Bilirubin 0.4 (0.2-1.0) mg/dl AST 12 L (13-39) U/L ALT 13 (7-52) U/L Alkaline Phosphatase 86 (34-104) U/L Total Protein 8.3 (6.0-8.3) gm/dl Albumin 3.1 L (3.4-5.0) gm/dl Globulin 5.2 H (2.5-4.0) gm/dl Albumin/Globulin Ratio 0.6 L (0.9-2) 12/12/21 12/12/21 12/12/21 Range/Units 16:53 14:18 13:16 WBC (4.8-10.8) K/ul RBC (3.93-5.22) M/uL Hgb (12.0-16.0) g/dl Hct (34.1-44.9) % MCV (80.0-100.0) fL MCH (25.0-34.0) pg MCHC (32.0-36.0) g/dL RDW Std Deviation (36.4-46.3) fL RDW Coeff of Julio Cesar (11.5-14.5) % Plt Count (130-400) K/uL MPV (9.4-12.3) fL Immature Gran % (Auto) % Neut % (Auto) % Lymph % (Auto) % Amelia % (Auto) % Eos % (Auto) % Baso % (Auto) % Neut # (Auto) (1.4-6.5) K/uL Lymph # (Auto) (1.2-3.4) K/uL Amelia # (Auto) (0.24-0.82) K/uL Eos # (Auto) (0-0.50) K/uL Baso # (Auto) (0-0.2) K/uL Immature Gran # (Auto) (0.00-0.02) K/uL Sodium (136-145) mmol/L Potassium (3.5-5.1) mmol/L Chloride (98-107) mmol/L Carbon Dioxide (21-32) mmol/L Anion Gap (3-11) BUN (6-23) mg/dl Creatinine (0.6-1.2) mg/dl Est Cr Clr Drug Dosing ml/min Est GFR ( Amer) ml/min Est GFR (Non-Af Amer) ml/min BUN/Creatinine Ratio (10-20) Glucose (70-99(Fasting)) mg/dl POC Glucose 183 H 151 H 117 H (70-99) mg/dl Calcium (8.5-10.1) mg/dl Magnesium (1.7-2.4) mg/dl Total Bilirubin (0.2-1.0) mg/dl AST (13-39) U/L ALT (7-52) U/L Alkaline Phosphatase (34-104) U/L Total Protein (6.0-8.3) gm/dl Albumin (3.4-5.0) gm/dl Globulin (2.5-4.0) gm/dl Albumin/Globulin Ratio (0.9-2) 12/12/21 Range/Units 12:15 WBC (4.8-10.8) K/ul RBC (3.93-5.22) M/uL Hgb (12.0-16.0) g/dl Hct (34.1-44.9) % MCV (80.0-100.0) fL MCH (25.0-34.0) pg MCHC (32.0-36.0) g/dL RDW Std Deviation (36.4-46.3) fL RDW Coeff of Julio Cesar (11.5-14.5) % Plt Count (130-400) K/uL MPV (9.4-12.3) fL Immature Gran % (Auto) % Neut % (Auto) % Lymph % (Auto) % Amelia % (Auto) % Eos % (Auto) % Baso % (Auto) % Neut # (Auto) (1.4-6.5) K/uL Lymph # (Auto) (1.2-3.4) K/uL Amelia # (Auto) (0.24-0.82) K/uL Eos # (Auto) (0-0.50) K/uL Baso # (Auto) (0-0.2) K/uL Immature Gran # (Auto) (0.00-0.02) K/uL Sodium (136-145) mmol/L Potassium (3.5-5.1) mmol/L Chloride (98-107) mmol/L Carbon Dioxide (21-32) mmol/L Anion Gap (3-11) BUN (6-23) mg/dl Creatinine (0.6-1.2) mg/dl Est Cr Clr Drug Dosing ml/min Est GFR ( Amer) ml/min Est GFR (Non-Af Amer) ml/min BUN/Creatinine Ratio (10-20) Glucose (70-99(Fasting)) mg/dl POC Glucose 107 H (70-99) mg/dl Calcium (8.5-10.1) mg/dl Magnesium (1.7-2.4) mg/dl Total Bilirubin (0.2-1.0) mg/dl AST (13-39) U/L ALT (7-52) U/L Alkaline Phosphatase (34-104) U/L Total Protein (6.0-8.3) gm/dl Albumin (3.4-5.0) gm/dl Globulin (2.5-4.0) gm/dl Albumin/Globulin Ratio (0.9-2) PG Care Time/CCT Total # of Minutes Spent Total Time Spent with Patient: Total time spent is greater than 50% in coordination of care (as documented) at patient's floor/unit and/or counseling patient: Coding Level of Care Code 93661 Subseq Hosp Care Lvl 2 Diagnoses Appendix disease K38.9 Leg mass R22.40 Diabetes mellitus E11.9 BARNES (nonalcoholic steatohepatitis) K75.81 Chronic reflux esophagitis K21.0 Smoldering multiple myeloma D47.2 Hypomagnesemia E83.42
[2021-12-13] MEDS ORDERED: POTASSIUM 75 MG PO SCH (09:00)
[2021-12-13] MEDS ORDERED: INSULIN DETEMIR SQ SCH (09:00)
[2021-12-13] MEDS ORDERED: PANTOprazole 40 MG TAB PO SCH (09:00)
[2021-12-13] MEDS ORDERED: NON-FORMULARY MEDICATION (Insulin Glargine [Basaglar Kwikpen U-100 Insulin] 100 unit/mL (3 SQ SCH (09:00)
[2021-12-13] MEDS ORDERED: SODIUM CHLORIDE 0.65% NA SOLN 45 ML (OCEAN) PRN (11:16)
[2021-12-13] MEDS ORDERED: SODIUM CHLORIDE 0.65% NA SOLN 45 ML (OCEAN) ONE (11:16)
--- NOTE | 2021-12-13 15:11 | Surgery Progress Note ---
Date of Service December 13, 2021 Assessment & Plan (1) Colon polyp: Plan: F/U S/P laparoscopic appendectomy , caecal wedge resection, resection lipoma on left upper leg, POD 1, pt is doing fine, no significant abdominal pain, no fever, continue treatment, npo, iv fluid, may start clear diet tomorrow, will F/U Admission and Anticipated Discharge Date Admission Date: December 12, 2021 Subjective Patient evaluated this morning. Doing well, ambulating the werner. Pain much improved but with a little bit of a headache, chronic issues with sinu ses and was going to go to bathroom to wet a washcloth to help with her dry nose. Discussed ordering nasal saline, she would appreciate this. Nothing yet to eat, but admits to passing lots of gas this morning. No BM yet. Abdomen soft, incisions look good. Anticipating diet/possible discharge tomorrow. No chest pain/shortness of breath/cough/sputum production/nausea or vomiting. 12/13/2021 3:08PM Dr. Pedraza F/U S/P laparoscopic appendectomy , caecal wedge resection, resection lipoma on left upper leg, POD 1, pt is doing fine, no significant abdominal pain, no fever, Physical Exam Constitutional: WD/WN, vitals as above Eyes: PERRL, conjunctivae normal, anicteric sclerae Neck: trachea midline, no thyromegaly Respiratory: normal respiratory effort, lungs clear to auscultation Cardiovascular: RRR, no murmur, no edema Gastrointestinal (Abdomen): soft, mild tenderness at incision site, no rebound pain, no distend, all incisions intact, no redness, BS +. Musculoskeletal: no cyanosis or clubbing, extremities motor strength 5/5 Neurologic: patellar DTR's 2+ bilat, sensation intact Psychiatric: A+Ox3, euthymic affect Results & Data ([facility]) Vital Signs (Past 12 Hours) Vital Signs Temp Pulse Resp BP Pulse Ox O2 Del Method 12/13/21 11:35 36.6 C 73 17 144/75 H 90 Room Air 12/13/21 07:25 37.2 C 77 16 126/70 92 Room Air Laboratory Results Abnormal lab results 12/12/21 12/12/21 12/12/21 Range/Units 16:53 17:53 23:50 RBC (3.93-5.22) M/uL Hgb (12.0-16.0) g/dl Hct (34.1-44.9) % Plt Count (130-400) K/uL Lymph # (Auto) (1.2-3.4) K/uL Creatinine 0.50 L (0.6-1.2) mg/dl Glucose 178 H (70-99(Fasting)) mg/dl POC Glucose 183 H 148 H (70-99) mg/dl Magnesium 1.4 L (1.7-2.4) mg/dl AST 12 L (13-39) U/L Albumin 3.1 L (3.4-5.0) gm/dl Globulin 5.2 H (2.5-4.0) gm/dl Albumin/Globulin Ratio 0.6 L (0.9-2) 12/13/21 12/13/21 12/13/21 Range/Units 05:11 05:30 05:30 RBC 3.53 L (3.93-5.22) M/uL Hgb 10.9 L (12.0-16.0) g/dl Hct 32.1 L (34.1-44.9) % Plt Count 100 L (130-400) K/uL Lymph # (Auto) 0.78 L (1.2-3.4) K/uL Creatinine (0.6-1.2) mg/dl Glucose 126 H (70-99(Fasting)) mg/dl POC Glucose 113 H (70-99) mg/dl Magnesium (1.7-2.4) mg/dl AST 11 L (13-39) U/L Albumin 3.1 L (3.4-5.0) gm/dl Globulin 4.4 H (2.5-4.0) gm/dl Albumin/Globulin Ratio 0.7 L (0.9-2) 12/13/21 Range/Units 13:20 RBC (3.93-5.22) M/uL Hgb (12.0-16.0) g/dl Hct (34.1-44.9) % Plt Count (130-400) K/uL Lymph # (Auto) (1.2-3.4) K/uL Creatinine (0.6-1.2) mg/dl Glucose (70-99(Fasting)) mg/dl POC Glucose 132 H (70-99) mg/dl Magnesium (1.7-2.4) mg/dl AST (13-39) U/L Albumin (3.4-5.0) gm/dl Globulin (2.5-4.0) gm/dl Albumin/Globulin Ratio (0.9-2)
[2021-12-13] MEDS: GABAPENTIN 600 MG TAB PO SCH (20:22)
[2021-12-13] MEDS: CALCIUM 600MG + VIT D 400 IU TAB PO SCH (20:22)
[2021-12-14] MEDS: INSULIN ASPART PER UNIT SC SCH ×4 (00:23→12:46)
[2021-12-14] MEDS: LACTATED RINGER'S 1,000 ML IV SCH (01:18)
[2021-12-14] MEDS: oxyCODONE/ACETAMINOPHEN 5mg/325mg TAB PO PRN ×3 (03:08→11:30)
[2021-12-14] MEDS: ceFAZolin 2000MG 2,000 MG/15 ML SYR IV SCH ×2 (04:24→12:21)
--- NOTE | 2021-12-14 07:23 | Surgery Progress Note ---
Date of Service December 14, 2021 Assessment & Plan (1) Colon polyp: Plan: F/U S/P laparoscopic appendectomy , caecal wedge resection, resection lipoma on left upper leg, POD 1, pt is doing fine, no significant abdominal pain, no fever, continue treatment, npo, iv fluid, may start clear diet tomorrow, will F/U 12/14/2021 7:20AM F/U S/P laparoscopic appendectomy , caecal wedge resection, resection lipoma on left upper leg, POD 2, pt is doing fine, no significant abdominal pain, no fever, clear diet, OOB D/C home today, if pt tolerated the diet, the post op care instruction was given,pt understood, I answered all questions, F/U or 2 weeks, Admission and Anticipated Discharge Date Admission Date: December 12, 2021 Supervising Physician Co-Signing Physician Notes SELENE Supervision Note: I did not personally see or examine the patient today, but I verified all sanchez points of SELENE Leach's assessment and plan with the following exceptions/additions: None Subjective Patient evaluated this morning. Doing well, ambulating the werner. Pain much improved but with a little bit of a headache, chronic issues with sinuses and was going to go to bathroom to wet a washcloth to help with her dry nose. Discussed ordering nasal saline, she would appreciate this. Nothing yet to eat, but admits to passing lots of gas this morning. No BM yet. Abdomen soft, incisions look good. Anticipating diet/possible discharge tomorrow. No chest pain/shortness of breath/cough/sputum production/nausea or vomiting. 12/13/2021 3:08PM Dr. Pedraza F/U S/P laparoscopic appendectomy , caecal wedge resection, resection lipoma on left upper leg, POD 1, pt is doing fine, no significant abdominal pain, no fever, 12/14/2021 7:[address] Pedraza F/U S/P laparoscopic appendectomy , caecal wedge resection, resection lipoma on left upper leg, POD 2, pt is doing fine, no significant abdominal pain, no fever, Physical Exam Constitutional: WD/WN, vitals as above Eyes: PERRL, conjunctivae normal, anicteric sclerae Neck: trachea midline, no thyromegaly Respiratory: normal respiratory effort, lungs clear to auscultation Cardiovascular: RRR, no murmur, no edema Gastrointestinal (Abdomen): soft, NT, ND, all incisions intact, no redness, BS +, Musculoskeletal: no cyanosis or clubbing, extremities motor strength 5/5 Neurologic: patellar DTR's 2+ bilat, sensation intact Psychiatric: A+Ox3, euthymic affect Results & Data ([facility]) Vital Signs (Past 12 Hours) Vital Signs Temp Pulse Resp BP Pulse Ox O2 Del Method 12/14/21 00:02 36.4 C L 68 18 167/81 H 93 Room Air
[2021-12-14 07:41] LABS: BUN Creatinine Ratio 16.7 (10-20); Calcium 8.2 mg/dl (8.5-10.1); Creatinine Clr Calc Pharmacy 134.4 ml/min; Est GFR (African American) 123.6 ml/min; Est GFR (Non-African American) 106.6 ml/min; Magnesium 1.3 mg/dl (1.7-2.4); Potassium 3.5 mmol/L (3.5-5.1)
[2021-12-14] MEDS: PANTOprazole 40 MG in SYRINGE 0 ML IV SCH (08:40)
[2021-12-14] MEDS: DULoxetine HCL 30 MG CAP PO SCH (08:41)
[2021-12-14] MEDS: GABAPENTIN 300 MG CAP PO SCH (08:42)
[2021-12-14] MEDS: CYANOCOBALAMIN (B-12) 500 MCG TABLET PO SCH (08:42)
[2021-12-14] MEDS: GLUCOSAMINE SULFATE 500 MG CAP PO SCH (08:42)
[2021-12-14] MEDS ORDERED: ENOXAPARIN INJ 40 MG/0.4 ML SYR SQ SCH (09:00)
--- NOTE | 2021-12-14 09:58 | Communication Note ---
Date of Service: December 14, 2021 Review of labs this morning with stable Na/K/Cr Mag checked as on Protonix IV BID and prior lows Mag 1.3, IV replacement ordered, should also assist with bowels. Messaged primary service of findings given no replacement ordered to consider changing back to daily protonix 40mg from IV BID. Consider repeating labs outpatient or later today prior to discharge.
[2021-12-14] MEDS: MAGNESIUM SULFATE / D5W 1 GM/100 ML BAG IV SCH ×3 (10:12→13:53)
--- NOTE | 2021-12-14 12:34 | Discharge Summary (DS) ---
DATE OF ADMISSION: 12/12/2021. DATE OF DISCHARGE: 12/14/2021. ADMISSION DIAGNOSES: Cecal polyps and lipoma on the left upper leg. POSTOPERATIVE DIAGNOSES: Cecal polyps and lipoma on the left upper leg. OPERATION: Laparoscopy, appendectomy, cecal wedge resection, lysis of adhesions and resection of the lipoma on the left upper leg. SURGEON: Wendy Pedraza MD. DETAILS OF DISCHARGE SUMMARY: This is a 61-year-old female who presented with cecal polyp located at the appendiceal orifice and I recommended to do laparoscopy, appendectomy, wedge resection cecum and also the patient presented lipoma on the left upper leg. I also recommended to have resection of th e lipoma on the left upper leg. I did talk to the patient about the benefits, risks, and alternate o f the procedure, and the patient agreed to procedure. We took the patient in the OR, we did laparosc opic appendectomy and cecal wedge resection, lysis of adhesions, and the resection of the lipoma on t he left upper leg on 12/12/2021. Patient tolerated the procedure well. After the procedure, the pat ient was transferred to recovery room and later admitted to the hospital for postoperative care. The patient stayed at hospital for 2 days. The patient is doing fine and no significant abdominal pain. No fever and today we started a clear diet. The patient tolerated a clear diet. No abdominal pain and we discharged the patient home today. Gave the patient postop care instruction. PHYSICAL EXAMINATION: VITAL SIGNS: Temperature is 36.7, respiratory rate 18, heart rate 70, blood pressure 157/84, O2 satu ration 95% on room air. GENERAL: The patient is alert, awake, oriented x3. HEENT: Within normal limitation. NEUROLOGIC: Intact. NECK: No JVD. CHEST: Bilateral lung sounds clear. HEART: Normal S1 and S2. No murmur. ABDOMEN: Soft, nondistended. All incisions intact. Only mild tenderness on the incision site. Inc ision intact. No redness, no drainage. Bowel sounds positive. EXTREMITIES: No edema. The patient wanted to go home today. We gave the patient postoperative care instruction, the patient understands. I will follow up the patient in two weeks. Job ID: [id number]
== END 2021-12-14 16:21 | disposition home or self-care (01) | DRG 330 ==
LOC: ASU 09:42 → 3N 14:14
DX: E11.9 Type 2 diabetes mellitus without complications; D62 Acute posthemorrhagic anemia; Z91.048 Other nonmedicinal substance allergy status; R51.9 Headache, unspecified; Z91.012 Allergy to eggs; F41.9 Anxiety disorder, unspecified; K21.00 Gastro-esophageal reflux disease with esophagitis, without bleeding; D12.0 Benign neoplasm of cecum; Z88.2 Allergy status to sulfonamides; Z68.33 Body mass index [BMI] 33.0-33.9, adult; D17.24 Benign lipomatous neoplasm of skin and subcutaneous tissue of left leg; K74.60 Unspecified cirrhosis of liver; E53.8 Deficiency of other specified B group vitamins; Z79.4 Long term (current) use of insulin; E83.42 Hypomagnesemia; Z87.891 Personal history of nicotine dependence; E78.5 Hyperlipidemia, unspecified; I10 Essential (primary) hypertension; Z88.8 Allergy status to other drugs, medicaments and biological substances; Z91.040 Latex allergy status; C90.00 Multiple myeloma not having achieved remission; Z79.899 Other long term (current) drug therapy; Z83.3 Family history of diabetes mellitus; K38.8 Other specified diseases of appendix; K75.81 Nonalcoholic steatohepatitis (NASH); E66.9 Obesity, unspecified; Z86.16 Personal history of COVID-19; Z82.49 Family history of ischemic heart disease and other diseases of the circulatory system; Z79.84 Long term (current) use of oral hypoglycemic drugs

== ENCOUNTER 2023-09-02 12:36 | Observation (INO) ==
--- NOTE | 2023-09-02 12:47 | ED Triage Note ---
Date of Service September 02, 2023 Provider in Triage Author: Alecia Ybarra History of Present Illness This patient was briefly evaluated while in triage. An abbreviated physical exam was performed. This patient is a 63-year-old Female who presents to the ED for evaluation of "I am not feeling well. I've been sick for 3 days and I'm having a lot of pressure in my chest and nausea." Pt. c/o pressure in upper abdomen. Has been "very sensitive to smell." History of cardiac ablation in 1999. Chest pressure started 3 hours ago. Took ASA without relief. Physical Exam VITALS: Vitals are noted on the nurse's note and reviewed by myself. GENERAL: This is a 63 year old female, in no acute distress, nondiaphoretic, well-developed well-nourished. SKIN: No obvious rashes, edema, erythema HEAD: Normocephalic atraumatic. EYES: Conjunctivae without injection, sclerae without icterus. NECK: No JVD. LUNGS: No retractions or accessory muscle use. MUSCULOSKELETAL: Normal gait. NEURO: Patient was alert and oriented to person place and time. No focal neurological deficits. Initial orders for labs and / or imaging were placed. Pt. was taken to ED room from Triage. Initial review of EKG shows no ST elevation or depression. No STEMI. MDM / Impression Impression Impression: Chest pain, Abdominal pain, epigastric Impression: Chest pain Qualifiers: Chest pain type: unspecified Qualified Code(s): R07.9 - Chest pain, unspecified
[2023-09-02] MEDS: SODIUM CHLORIDE 0.9% 1,000 ML IV STA (13:05)
--- NOTE | 2023-09-02 13:18 | XRay Report ---
SINGLE VIEW CHEST CLINICAL HISTORY: Atypical chest pain FINDINGS: An AP, portable, upright chest radiograph is compared to study dated 05/25/2022. The cardiom ediastinal silhouette is top normal for projection noting atherosclerotic calcification of the thorac ic aorta. The lungs and pleural spaces are clear. No pneumothorax is seen. The bony thorax is grossly intact. IMPRESSION: No active disease in the chest. ACT 112: Negative or not required by law. Electronically signed by: Ronny Powell M.D. 09/02/2023 1:17 PM
[2023-09-02 13:20] LABS: Appearance Urine Clear (Clear); Bilirubin Urine Negative (Negative); Blood Urine Negative (Negative); Color Urine Yellow; Glucose Urine UA Negative (Negative); Ketones Urine Negative (Negative); Leukocyte Esterase Urine Negative (Negative); Nitrite Urine Negative (Negative); Protein Urine Negative (Negative); Specific Gravity Urine 1.003 (1.000-1.030); Urobilinogen Urine Negative (Negative)
--- NOTE | 2023-09-02 13:23 | Emergency Department Note ---
Impression & Plan Chest pain, Abdominal pain, epigastric ED Provider Note NAME: GLORIA ALLAN AGE: 63 SEX: F : 1960 ARRIVES VIA: Walk-In INFORMANT: Patient, ED PROVIDER(S): Juan Carlos Maradiaga DO CHIEF COMPLAINT: Epigastric pain HPI: The patient is a 63-year-old female who presented to the emergency department for an evaluation of chest pain. The patient describes chest tightness in the left side of her chest and into her neck. She also complains of tingling in her left arm. The patient arrived through triage. She states that she also has tightness in her upper abdomen. She denies having any dark or tarry stools. The patient did not see her family doctor but came directly to the emergency department because of the symptoms. ROS: See above HPI for pertinent positives & negatives. A total of 10 systems reviewed and were otherwise negative. PAST MEDICAL HISTORY: See Below PAST SURGICAL HISTORY: See Below FAMILY HISTORY: See Below SOCIAL HISTORY: See Below HOME MEDICATIONS: See Below ALLERGIES: See Below VITALS: See Below PHYSICAL EXAMINATION: GENERAL: The patient is awake and alert. She is very anxious and appears to be uncomfortable. EYES: The conjunctivae are clear. The pupils are round and reactive. EARS, NOSE, MOUTH AND THROAT: The nose is without any evidence of any deformity. NECK: The neck is nontender and supple. RESPIRATORY: Normal respiratory effort is noted there is no evidence of wheezing rhonchi or rales CARDIOVASCULAR: Regular rate and rhythm noted there no murmurs rubs or gallops normal S1 normal S2. GASTROINTESTINAL: The abdomen was soft and mildly distended. There is epigastric and right upper quadrant tenderness to palpation which is moderate. MUSCULOSKELETAL/EXTREMITIES: There is no evidence of gross deformity full range of motion is noted in the hips and shoulders. SKIN: There is no obvious evidence of any rash. There are no petechiae, pallor or cyanosis noted. NEUROLOGIC: Patient is awake alert and oriented x3 MEDICAL DECISION MAKING: The patient is a 63-year-old female who presented to the emergency department through triage for an evaluation of chest pain. The patient describes tightness in her chest that went to her jaw as well as her left arm. The patient did not have any acute ischemic changes on EKG. Initial cardiac biomarker was negative. On physical exam she did have very significant upper abdominal pain. I thought her exam was consistent with upper abdominal pathology. CT of the abdomen pelvis did not show any acute process. I discussed the patient's laboratory and radiographic studies with her. I discussed the limitations of the emergency department workup for chest pain with her. Ultimately the patient was felt to be high risk. For this reason [facility] The patient may require further inpatient management as well as diagnostic studies. Triage Nursing notes reviewed. Prior medical records reviewed Vital Signs: reviewed and remarkable for elevated blood pressure. Differential diagnosis: Etiologies such as appendicitis, diverticulitis, obstruction, inflammatory bowel disease, renal colic, PUD, biliary pathology, pancreatitis, mesenteric ischemia, aortic pathology, infections, genitourinary, UTI, perforated viscus, as well as others were entertained. ER treatment provided: See below Diagnostics interpreted by me: ECG: EKG was obtained in the emergency department. My interpretation is normal sinus rhythm at 69 bpm. There is no ectopy. There is no acute ST segment abnormalities noted. This was carried to a tracing from May 17, 2017. No changes were noted. Cardiac Monitoring: An order was placed for continuous cardiac monitoring. The monitor shows a rate of 66 bpm with sinus rhythm. Laboratory studies: As stated above and show below. Imaging studies: See below. Radiographic imaging was reviewed by myself Consultation(s): [facility] hospitalist, Dr. Neville was notified about the patient. Past Med/Surg History Problem List (Updated 09/02/23 @ 14:59 by Juan Carlos Maradiaga DO) Abdominal pain, epigastric (Acute) Chest pain (Acute) Hearing reduced Tinnitus Depression with anxiety Carpal tunnel syndrome on both sides Cervical radiculopathy Lower back pain Bilateral hand pain Murmur Colon polyp Smoldering multiple myeloma followed by [facility] hem/onc Appendix disease Anemia Encounter for pre-operative examination Esophageal varices Portal hypertension Sciatic leg pain (Acute) Diabetes mellitus (Chronic) Vitamin B12 deficiency (Chronic) Unspecified cirrhosis of liver (Chronic) Myofascial pain syndrome (Chronic) Generalized pain (Chronic) Left hip pain Anxiety (Chronic) BPPV (benign paroxysmal positional vertigo) (Chronic) Chronic reflux esophagitis (Chronic) Hyperlipidemia (Chronic) Hypertension (Chronic) Solitary thyroid nodule (Chronic) BARNES (nonalcoholic steatohepatitis) (Chronic) Fatigue Obesity BMI 48.4 Polyarthralgia Neck pain of over 3 months duration Trapezius muscle spasm Diabetic peripheral neuropathy Medical History Heart murmur slight History of COVID-19 ~02/2020 ("FLU LIKE [facility]MT[facility]S-SWABBED AT [facility] [address] THRU) Hx of supraventricular tachycardia cardiac ablation -- no problems since. (~2006). 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 Spastic colon Hiatal hernia Esophageal varices hx of banding X4 Diabetes mellitus, type 2 IDDM Migraine HX Myocardial Infarction "POSSIBLE" IN 2008 Surgical History History of tooth extraction History of bowel resection appendix removed at same time- states it was "just a small section of bowel removed for bx" - 12/2021 [facility] S/P wisdom tooth extraction History of esophagogastroduodenoscopy (EGD) X MULTIPLE History of hysterectomy [place] with BSO History of bone marrow biopsy X 15 LAST ONE APPROX 2 YRS AGO History of colonoscopy H/O partial thyroidectomy BENIGN NODULE History of cardiac cath 2008-NO STENTS NEEDED H/O prior ablation treatment Cardiac Ablation for SVT Family History Grandmother (Maternal) Family history of diabetes mellitus Breast cancer Myocardial infarction Mother Family history of diabetes mellitus Breast cancer Hypertension Heart disease Grandfather (Paternal) Myocardial infarction Other No family history of adverse response to anesthesia Denies family history of Ovarian cancer Prostate cancer Colorectal cancer Social History Smoking Status: Never smoker Cigarettes Per Day: QUIT 2003; Second Hand Exposure: No; Do You Dip or Chew Tobacco: No; Hx Alcohol Use: No Hx Substance Use: Yes Prescribed Medications: Other Substance Use Type Other:: MARIJUANA SUPPOSITORY-NO MEDICAL MARIJUANA CARD-WILL REFRAIN Preferred Language: Czech Communication Ability: Effective Visual Impairment: No Limitations Tandem Mill Sticker Required: No Beliefs That Will Affect Care: None marital status: Current Living Situation: Spouse current occupational status: employed current occupation: [employer] How many Children do You have: 1 Feels Safe at Home: Yes Childhood Exposure to Second-Hand Smoke: No Diet: diabetic and regular caffeine: Yes during the past year weight has: remained stable Dental Care, Regularly: No Physical Activity Frequency: Daily Seatbelt Use: always Sunscreen Use: No Assistive Devices: Glasses Allergies Allergies Allergy/AdvReac Type Severity Reaction Status Date / Time Sulfa (Sulfonamide Allergy Severe SOB, Verified 05/08/23 08:03 Antibiotics) erythema ,TROUBLE SWALLOWING RASH cat dander Allergy Intermediate Congested Verified 05/08/23 08:03 latex Allergy Intermediate RASH, Verified 05/08/23 08:03 ITCHY NOSE, WATERY EYES. diltiazem Allergy Mild very sleepy Verified 05/08/23 08:03 lactic acid AdvReac Intermediate flu like Verified 05/08/23 08:03 symptoms adhesive AdvReac Mild TAPE-REDNES Verified 05/08/23 08:03 S Beta-Blockers AdvReac Mild makes pt Verified 05/08/23 08:03 (Beta-Adrenergic Bloc very sleepy Egg Derived AdvReac Mild occasionally Verified 05/08/23 08:03 has GI upset Home Meds Home Medications Medication Instructions Recorded Confirmed pantoprazole 40 mg tablet,delayed 40 mg PO QAM 07/22/20 08/27/23 release Will Burst CBD Gummies 1 piece PO HS 12/28/22 08/27/23 bismuth subsalicylate 262 mg/15 mL 524 mg PO QID PRN Abdominal 12/28/22 08/27/23 oral suspension (Pepto-Bismol) Discomfort dicyclomine 10 mg capsule 10 mg PO HS PRN Abdominal 12/28/22 08/27/23 Discomfort ondansetron HCl 4 mg tablet 4 mg PO Q8H PRN Nausea 12/28/22 08/27/23 Previous Rx's Medication Instructions Recorded pen needle, diabetic 31 gauge x #100 ea 03/01/2307/24" (1st Tier Unifine Pentips) blood sugar diagnostic (OneTouch #300 ea 04/26/23 Ultra Test strips) insulin glargine 100 unit/mL (3 24 unit (0.24 mL) subcut BID #15 mL 04/26/23 mL) subcutaneous pen (Lantus Solostar U-100 Insulin) lisinopril 10 mg tablet 10 mg PO BID #180 tabs 07/16/23 duloxetine 20 mg capsule,delayed 20 mg PO DAILY #30 caps 06/18/24 release oxycodone-acetaminophen 5 mg-325 1 tab PO Q8H PRN pain #90 tabs 08/27/23 mg tablet pregabalin 75 mg capsule 75 mg PO TID #90 caps 08/27/23 Results & Data (ED) Vital Signs Vital Signs - 24 hr 09/02/23 12:37 09/02/23 12:37 09/02/23 12:46 Temperature 36.5 C Temperature Source Temporal Artery Scan Pulse Rate 65 Pulse Rate [Apical] 67 Respiratory Rate 16 20 Respiratory Effort / Characteristics Non-Labored Spontaneous Respiratory Depth Normal Blood Pressure 200/100 H Blood Pressure [Left Arm] 158/84 H Blood Pressure Mean 133 Blood Pressure Mean [Left Arm] 108 Pulse Oximetry 94 97 Oxygen Delivery Method Room Air Room Air Room Air Sepsis Recent Fever Within 48 Hours No Sepsis New/Unexplained Change in Mental Status No Sepsis Action Taken by Nursing No Action Required 09/02/23 12:47 09/02/23 14:02 Temperature Temperature Source Pulse Rate 66 Pulse Rate [Apical] Respiratory Rate Respiratory Effort / Characteristics Respiratory Depth Blood Pressure Blood Pressure [Left Arm] Blood Pressure Mean Blood Pressure Mean [Left Arm] Pulse Oximetry 97 Oxygen Delivery Method Sepsis Recent Fever Within 48 Hours Sepsis New/Unexplained Change in Mental Status Sepsis Action Taken by Retirement Medications Current Medication List: was personally reviewed by me Laboratory Data Attestation: I reviewed the patient's lab results. 09/02/23 13:03 09/02/23 13:03 Lab Results 09/02/23 09/02/23 Range/Units 13:03 13:43 WBC 4.48 L (4.8-10.8) K/ul RBC 4.15 L (4.20-5.40) M/uL Hgb 12.5 (12.0-16.0) g/dl POC Hgb 10.9 L (12.0-16.0) g/dl Hct 35.9 L (37.0-47.0) % POC Hct 32 L (37-47) % MCV 86.5 (80.0-100.0) fL MCH 30.1 (25.0-34.0) pg MCHC 34.8 (32.0-36.0) g/dL RDW Std Deviation 41.7 (36.4-46.3) fL RDW Coeff of Julio Cesar 13.3 (11.5-14.5) % Plt Count 77 L (130-400) K/uL MPV 10.1 (9.4-12.4) fL Immature Gran % (Auto) 0.2 % Neut % (Auto) 67.1 % Lymph % (Auto) 26.3 % [place] % (Auto) 5.1 % Eos % (Auto) 0.9 % Baso % (Auto) 0.4 % Neut # (Auto) 3.00 (1.40-6.50) K/uL Lymph # (Auto) 1.18 L (1.20-3.40) K/uL [place] # (Auto) 0.23 (0.11-0.59) K/uL Eos # (Auto) 0.04 (0.00-0.50) K/uL Baso # (Auto) 0.02 (0.00-0.20) K/uL Immature Gran # (Auto) 0.01 (0.01-0.20) K/uL PT 11.9 (9.0-12.0) Seconds INR 1.1 (0.9-1.1) APTT 25 (21-31) Seconds PTT Ratio 0.9 POC Sodium 141 (135-144) mmol/L Sodium 136 (136-145) mmol/L POC Potassium 3.4 (3.3-5.0) mmol/L Potassium 3.3 L (3.5-5.1) mmol/L POC Chloride 99 L (101-112) mmol/L Chloride 102 (98-107) mmol/L Carbon Dioxide 30 (21-32) mmol/L POC Total CO2 30 (24-31) mmol/L Anion Gap 4 (3-11) POC Anion Gap 16.0 (16-25) mmol/L POC BUN 4 L (7-18) mg/dl BUN 6 (6-23) mg/dl Creatinine 0.52 L (0.6-1.2) mg/dl POC Creatinine 0.6 (0.6-1.3) mg/dl Est Cr Clr Drug Dosing 119.4 ml/min Est GFR ( Amer) 118.7 ml/min Est GFR (Non-Af Amer) 102.4 ml/min BUN/Creatinine Ratio 11.5 (10-20) Glucose 174 H (70-99(Fasting)) mg/dl POC Glucose (other) 155 H (70-99) mg/dl Calcium 8.7 (8.6-10.3) mg/dl POC Ioniz Calcium [place] 1.14 (1.12-1.32) mmol/l Total Bilirubin 0.7 (0.2-1.0) mg/dl AST 16 (13-39) U/L ALT 17 (7-52) U/L Alkaline Phosphatase 88 (34-104) U/L Troponin I High Sens 4.4 (0-14) pg/ml Total Protein 8.7 H (6.0-8.3) gm/dl Albumin 3.4 (3.4-5.0) gm/dl Globulin 5.3 H (2.5-4.0) gm/dl Albumin/Globulin Ratio 0.6 L (0.9-2) Lipase 12 (11-82) U/L Urine Color Yellow Urine Appearance Clear (Clear) Urine pH 7.0 (4.5-7.5) Ur Specific [place] 1.003 (1.000-1.030) Urine Protein Negative (Negative) Urine Glucose (UA) Negative (Negative) Urine Ketones Negative (Negative) Urine Blood Negative (Negative) Urine Nitrite Negative (Negative) Urine Bilirubin Negative (Negative) Urine Urobilinogen Negative (Negative) Ur Leukocyte Esterase Negative (Negative) Administered Medications Discontinued Medications Sodium Chloride (Nss) 1,000 mls @ 999 mls/hr IV .Q1H1M STA Stop: 09/02/23 13:47 Last Infusion: 09/02/23 15:29 Dose: Infused Documented By: Admin: 09/02/23 13:05 Dose: 999 mls/hr Documented By: WARREN Ioversol (Optiray 320 100ml) 94 ml IV ONCE ONE Stop: 09/02/23 13:53 Last Admin: 09/02/23 13:52 Dose: 94 ml Documented By: CRISPIN Morphine Sulfate (Morphine Sulfate 4 Mg/Ml 1 Ml Carp\\Vial) 4 mg IV NOW STA Stop: 09/02/23 13:16 Last Admin: 09/02/23 13:36 Dose: 4 mg Documented By: WARREN Ondansetron HCl (Ondansetron Inj 2 Mg/Ml 2 Ml Vial) 4 mg IV NOW STA Stop: 09/02/23 13:16 Last Admin: 09/02/23 13:36 Dose: 4 mg Documented By: WARREN Imaging Data Attestation: I personally reviewed and interpreted this imaging study as follows: My Impression: 1 view chest x-ray was obtained in the emergency department. My interpretation is no free air or definite infiltrate, final report below. CT of the abdomen pelvis was obtained in the emergency department. My interpretation is no free air or signs of bowel obstruction, final report below. Radiologist's Impression: Chest X-Ray 09/02/23 12:47 SINGLE VIEW CHEST CLINICAL HISTORY: Atypical chest pain FINDINGS: An AP, portable, upright chest radiograph is compared to study dated 05/25/2022. The cardiomediastinal silhouette is top normal for projection noting atherosclerotic calcification of the thoracic aorta. The lungs and pleural spaces are clear. No pneumothorax is seen. The bony thorax is grossly intact. IMPRESSION: No active disease in the chest. ACT 112: Negative or not required by law. Electronically signed by: Ronny Powell M.D. 09/02/2023 1:17 PM Abdomen/Pelvis CT 09/02/23 13:15 CT OF THE ABDOMEN AND PELVIS WITH CONTRAST CLINICAL HISTORY: Upper abdominal pain. COMPARISON STUDY: CT of the abdomen and pelvis May 16, 2017 and abdominal ultrasound May 25, 2022. TECHNIQUE: Following IV administration of 94 mL of Optiray, axial images of the abdomen and pelvis were obtained from the lung bases to the proximal femurs. Images were reviewed in the axial, sagittal, and coronal planes. IV contrast was administered without complication. Automated exposure control was utilized for the study. A dose lowering technique was utilized adhering to the principles of ALARA. CT DOSE: 1351.91 mGy.cm FINDINGS: Lung bases are unremarkable. No pneumatosis, free air or portal venous gas is present. The liver is cirrhotic. Recanalized paraumbilical vein is noted. Additional varices are present. Main, left and right portal veins are patent. There is mixing artifact within the superior mesenteric vein. No hepatic lesions are identified. Splenomegaly is again noted. Mild stranding within the mesentery and paracolic gutters is likely related to portal hypertension. There is no significant ascites. Low-attenuation splenic lesion is likely benign. The adrenal glands, kidneys and pancreas are unremarkable. There is no evidence for a bowel obstruction. The appendix is surgically absent. Caliber and wall thickness of small and large bowel are normal. A partially imaged suspected lipoma within the left quadriceps is again noted. IMPRESSION: 1. No acute process within the abdomen or pelvis. 2. No bowel obstruction. No bowel wall thickening. 3. Cirrhotic liver with varices and splenomegaly indicative of portal hypertension. ACT 112: Negative or not required by law. Electronically signed by: Jones Garcia M.D. 09/02/2023 2:23 PM Discharge Plan Visit Data Chief Complaint: Chest Pain Stated Complaint: CHEST PAIN, LEFT ARM NUMBNESS, LIGHTHEAD, DIZZY ED Provider: Juan Carlos Maradiaga Discharge Problem: Chest pain, Abdominal pain, epigastric Patient Disposition: Being Evaluated by Hospitalist Forms Stand Alone Forms: My [facility] viaForens[employer] Prescriptions Prescriptions: No Action (DME) pen needle, diabetic [1st Tier Unifine Pentips] 31 gauge x 5/16" needle See Dose Instructions .ROUTE .MEDSUPPLY Qty: 100 5RF Rx Instructions: use twice daily with insulin Dx:E11.9 lisinopril 10 mg tablet 10 mg PO BID Qty: 180 3RF dicyclomine 10 mg capsule 10 mg PO HS PRN (Reason: Abdominal Discomfort) ondansetron HCl 4 mg tablet 4 mg PO Q8H PRN (Reason: Nausea) Will Burst CBD Gummies 1 piece PO HS bismuth subsalicylate [Pepto-Bismol] 262 mg/15 mL suspension 524 mg PO QID PRN (Reason: Abdominal Discomfort) (DME) OneTouch Ultra Test Strip See Rx Instructions .Route Qty: 300 3RF Rx Instructions: test twice a day insulin glargine [Lantus Solostar U-100 Insulin] 100 unit/mL (3 mL) insulin pen 24 unit subcut BID Qty: 15 3RF Patient Comments: pt reports blood sugar of 212 @ 06:15; states she took 12 units @ 06:30 pantoprazole 40 mg tablet,delayed release (DR/EC) 40 mg PO QAM pregabalin 75 mg capsule 75 mg PO TID Qty: 90 4RF Rx Instructions: pt aware dose increase duloxetine 20 mg capsule,delayed release(DR/EC) 20 mg PO DAILY Qty: 30 4RF oxycodone-acetaminophen 5-325 mg tablet 1 tab PO Q8H PRN (Reason: pain) Qty: 90 0RF Patient Comments: took 1/2 this am Referrals Referrals: Miriam Livingston CRNP [Primary Care Provider] - Discharge Problem: Chest pain Qualifiers: Chest pain type: unspecified Qualified Code(s): R07.9 - Chest pain, unspecified
[2023-09-02 13:34] LABS: Basophils # (auto) 0.02 K/uL (0.00-0.20); Basophils % (auto) 0.4 %; Eosinophils # (auto) 0.04 K/uL (0.00-0.50); Eosinophils % (auto) 0.9 %; Hematocrit (blood only) 35.9 % (37.0-47.0); Hemoglobin 12.5 g/dl (12.0-16.0); Immature Granulocytes # (auto) 0.01 K/uL (0.01-0.20); Immature Granulocytes % (auto) 0.2 %; Lymphocytes # (auto) 1.18 K/uL (1.20-3.40); Lymphocytes % (auto) 26.3 %; Mean Corpuscular Hemoglobin 30.1 pg (25.0-34.0); Mean Corpuscular Hgb Conc 34.8 g/dL (32.0-36.0); Mean Corpuscular Volume 86.5 fL (80.0-100.0); Mean Platelet Volume 10.1 fL (9.4-12.4); Monocytes # (auto) 0.23 K/uL (0.11-0.59); Monocytes % (auto) 5.1 %; Neutrophils % (auto) 67.1 %; Platelet Count 77 K/uL (130-400); RDW Coefficient of Variation 13.3 % (11.5-14.5); RDW Standard Deviation 41.7 fL (36.4-46.3); Red Blood Count 4.15 M/uL (4.20-5.40); White Blood Count 4.48 K/ul (4.8-10.8)
[2023-09-02] MEDS: ONDANSETRON INJ 2 MG/ML 2 ML VIAL IV STA (13:36)
[2023-09-02] MEDS: MoRPHine SULFATE 4 MG/ML 1 ML CARP\\VIAL IV STA (13:36)
[2023-09-02 13:47] LABS: Albumin Globulin Ratio 0.6 (0.9-2); Albumin Level 3.4 gm/dl (3.4-5.0); BUN Creatinine Ratio 11.5 (10-20); Bilirubin,Total 0.7 mg/dl (0.2-1.0); Calcium 8.7 mg/dl (8.6-10.3); Creatinine Clr Calc Pharmacy 119.4 ml/min; Est GFR (African American) 118.7 ml/min; Est GFR (Non-African American) 102.4 ml/min; Globulin 5.3 gm/dl (2.5-4.0); Potassium 3.3 mmol/L (3.5-5.1); Total Protein 8.7 gm/dl (6.0-8.3)
[2023-09-02 13:51] LABS: Troponin I High Sensitivity 4.4 pg/ml (0-14)
[2023-09-02] MEDS: OPTIRAY 320 100ml IV ONE (13:52)
[2023-09-02 13:56] LABS: iSTAT Creatinine 0.6 mg/dl (0.6-1.3); iSTAT Hemoglobin 10.9 g/dl (12.0-16.0); iSTAT Ionized Calcium 1.14 mmol/l (1.12-1.32); iSTAT Potassium 3.4 mmol/L (3.3-5.0)
[2023-09-02 13:58] LABS: INR 1.1 (0.9-1.1); Partial Thromboplastin Ratio 0.9; Partial Thromboplastin Time 25 Seconds (21-31); Prothrombin Time 11.9 Seconds (9.0-12.0)
--- NOTE | 2023-09-02 14:25 | CT Scan Report ---
CT OF THE ABDOMEN AND PELVIS WITH CONTRAST CLINICAL HISTORY: Upper abdominal pain. COMPARISON STUDY: CT of the abdomen and pelvis May 16, 2017 and abdominal ultrasound May 25, 2022 . TECHNIQUE: Following IV administration of 94 mL of Optiray, axial images of the abdomen and pelvis we re obtained from the lung bases to the proximal femurs. Images were reviewed in the axial, sagittal, and coronal planes. IV contrast was administered without complication. Automated exposure control wa s utilized for the study. A dose lowering technique was utilized adhering to the principles of ALARA . CT DOSE: 1351.91 mGy.cm FINDINGS: Lung bases are unremarkable. No pneumatosis, free air or portal venous gas is present. The liver is cirrhotic. Recanalized paraumbilical vein is noted. Additional varices are present. Main, le ft and right portal veins are patent. There is mixing artifact within the superior mesenteric vein. N o hepatic lesions are identified. Splenomegaly is again noted. Mild stranding within the mesentery an d paracolic gutters is likely related to portal hypertension. There is no significant ascites. Low-at tenuation splenic lesion is likely benign. The adrenal glands, kidneys and pancreas are unremarkable. There is no evidence for a bowel obstruction. The appendix is surgically absent. Caliber and wall th ickness of small and large bowel are normal. A partially imaged suspected lipoma within the left quad riceps is again noted. IMPRESSION: 1. No acute process within the abdomen or pelvis. 2. No bowel obstruction. No bowel wall thickening. 3. Cirrhotic liver with varices and splenomegaly indicative of portal hypertension. ACT 112: Negative or not required by law. Electronically signed by: Jones Garcia M.D. 09/02/2023 2:23 PM
--- NOTE | 2023-09-02 15:34 | History & Physical Report ---
Date of Service September 02, 2023 Assessment & Plan (1) Chest pain: Plan: Atypical, constant since this AM and troponin neg x 2 thus far, ECG NSR and no ischemic changes, CXR neg, CTA Chest neg Radiates to left arm and left jaw. Was quite hypertensive at home and with tac hycardia to the 160s. +TTP on exam, could be some MSK component, but seems more likely GI related. No melena or hematochezia, no vomiting/hematemesis Doubt cardiac given pain ongoing for all day and troponin normal Admit to tele unit for monitoring for arrhythmia Serial troponin, check ECHO, daily ECG Morphine prn severe chest pain, continue home oxycodone Add on Carafate 1 gram qid and increase home Protonix to 40mg po bid in case of gastritis/reflux Improve BP control-she was not taking lisinopril 10mg bid like it was prescribed and was only taking it once daily--> increase to 10mg bid and can further increase as needed Control nausea with IV ZOfran Advance diet to DM as tolerated (2) Tachycardia: Plan: Reported HR at home in the 160s on home BP cuff, went away to the 50s after deep breathing. Was associated with onset of her chest pressure has a h/o SVT ablation Monitor on tele She cannot tolerate beta blockers in the past as per review of records-has been on Nadolol, Coreg, and propranolol--> all cause fatigue Check TSH (3) Nausea: Plan: Possibly worsened this weekend after starting duloxetine which caused profound fatigue and nausea Stopped duloxetine antiemetics as needed (4) Hypertension: Plan: BPs uncontrolled. Increase lisinopril to 10mg bid (was only taking once daily at home) (5) Headache: Plan: has a h/o migraines which largely resolved (6) Smoldering multiple myeloma: Plan: follows with [facility] not on treatment (7) Diabetes mellitus: Plan: continue ome Lantus and add Novolog SSI check A1C ADA diet (8) Myofascial pain syndrome: Plan: Continue home oxycodone, Lyrica Has chronic pain all over entire body from multiple myeloma (9) BARNES (nonalcoholic steatohepatitis): Plan: stable, follows with GI, with h/o esophageal varices w/ banding Last EGD 04/2023 with post-banding scar lower third esophagus, no residual varices, and w/ portal hypertensive gastropathy (10) Chronic diarrhea: Plan: noted (11) Diabetic peripheral neuropathy: Plan: Continue Lyrica Plan DVT proph-SCDs Dispo-observation to tele, likely dc to home tomorrow if cardiac workup negative History of Present Illness Chief Complaint: Chest pressure Primary Care Provider: KALEY Rossi This pt is a 63 yo female with a h/o DMII, multiple myeloma, chronic myofascial pain on opioids, BARNES cirrhosis with esophageal varices, depression/anxiety, SVT s/p ablation, and GERD who presents to the ER with left sided chest pressure that started this AM. She reports feeling extremely fatigued all weekend, taking naps, feeling very nauseated after starting Cymbalta for depression. She took 2 doses and then stopped it after symptoms started. She did not have a fever but sometimes had chills. She then developed left sided chest pressure as well as epigastric pain with radiation to left jaw and numbness in left arm and pain into left posterior head. SHe took her BP and HR at home and noted BP to be high at 170s/90s and HR was in the 160s at rest. She then did some deep breathing exercises and rechecked her vitals 30 min later-then BP remained high but not quite as high as before, and HR had returned to her normal in the 50s. She also checked her glucose and it was 312--> this came down to the 200s with giving herself insulin. Denies hematemesis, melena, hematochezia. She continues to have ongoing chest pressure for many hours today and no ECG changes, troponin neg x 1, Chest CTA and CXR in ER negative. Her posterior headache and left arm numbness resolved after being given morphine and Zofran in ER. She will be admitted on observation for further cardiac workup and monitoring for tachyarrhythmias. Allergies Allergy/AdvReac Type Severity Reaction Status Date / Time Sulfa (Sulfonamide Allergy Severe SOB, Verified 05/08/23 08:03 Antibiotics) erythema ,TROUBLE SWALLOWING RASH cat dander Allergy Intermediate Congested Verified 05/08/23 08:03 latex Allergy Intermediate RASH, Verified 05/08/23 08:03 ITCHY NOSE, WATERY EYES. diltiazem Allergy Mild very sleepy Verified 05/08/23 08:03 lactic acid AdvReac Intermediate flu like Verified 05/08/23 08:03 symptoms adhesive AdvReac Mild TAPE-REDNES Verified 05/08/23 08:03 S Beta-Blockers AdvReac Mild makes pt Verified 05/08/23 08:03 (Beta-Adrenergic Bloc very sleepy Egg Derived AdvReac Mild occasionally Verified 05/08/23 08:03 has GI upset Home Medications Medication Instructions Recorded Confirmed Type pantoprazole 40 mg tablet,delayed 40 mg PO QAM 07/22/20 09/02/23 History release Will Burst CBD Gummies 1 piece PO HS 12/28/22 09/02/23 History bismuth subsalicylate 262 mg/15 mL 524 mg PO QID PRN Abdominal 12/28/22 09/02/23 History oral suspension (Pepto-Bismol) Discomfort dicyclomine 10 mg capsule 10 mg PO UD PRN Abdominal 12/28/22 09/02/23 History Discomfort ondansetron HCl 4 mg tablet 4 mg PO Q8H PRN Nausea 12/28/22 09/02/23 History pen needle, diabetic 31 gauge x #100 ea 03/01/23 08/27/23 Rx 5/16" (1st Tier [employer]ifine Pentips) blood sugar diagnostic (OneTouch #300 ea 04/26/23 08/27/23 Rx Ultra Test strips) lisinopril 10 mg tablet 10 mg PO BID #180 tabs 07/16/23 09/02/23 Rx oxycodone-acetaminophen 5 mg-325 1 tab PO Q8H PRN pain #90 tabs 08/27/23 09/02/23 Rx mg tablet pregabalin 75 mg capsule 75 mg PO TID #90 caps 08/27/23 09/02/23 Rx insulin glargine 100 unit/mL (3 20 unit subcut BID 09/02/23 09/02/23 History mL) subcutaneous pen (Lantus Solostar U-100 Insulin) Past Med/Surg History Problem List (Updated 09/02/23 @ 19:50 by Adwoa Neville MD) Headache Nausea Tachycardia Chronic diarrhea Abdominal pain, epigastric (Acute) Chest pain (Acute) Hearing reduced Tinnitus Depression with anxiety Carpal tunnel syndrome on both sides Cervical radiculopathy Lower back pain Bilateral hand pain Murmur Colon polyp Smoldering multiple myeloma followed by [facility] Appendix disease Anemia Encounter for pre-operative examination Esophageal varices Portal hypertension Sciatic leg pain (Acute) Diabetes mellitus (Chronic) Vitamin B12 deficiency (Chronic) Unspecified cirrhosis of liver (Chronic) Myofascial pain syndrome (Chronic) Generalized pain (Chronic) Left hip pain Anxiety (Chronic) BPPV (benign paroxysmal positional vertigo) (Chronic) Chronic reflux esophagitis (Chronic) Hyperlipidemia (Chronic) Hypertension (Chronic) Solitary thyroid nodule (Chronic) BARNES (nonalcoholic steatohepatitis) (Chronic) Fatigue Obesity BMI 48.4 Polyarthralgia Neck pain of over 3 months duration Trapezius muscle spasm Diabetic peripheral neuropathy Medical History Heart murmur slight History of COVID-19 ~02/2020 ("FLU LIKE [facility]MTOMS-SWABBED AT [address] THRU) Hx of supraventricular tachycardia cardiac ablation -- no problems since. (~2006). [facility] no color artist needed currently. Spastic colon Hiatal hernia Esophageal varices hx of banding X4 Diabetes mellitus, type 2 IDDM Migraine HX Myocardial Infarction "POSSIBLE" IN 2008 Surgical History History of tooth extraction History of bowel resection appendix removed at same time- states it was "just a small section of bowel removed for bx" - 12/2021 [facility] S/P wisdom tooth extraction History of esophagogastroduodenoscopy (EGD) X MULTIPLE History of hysterectomy [place] with BSO History of bone marrow biopsy X 15 LAST ONE APPROX 2 YRS AGO History of colonoscopy H/O partial thyroidectomy BENIGN NODULE History of cardiac cath 2008-NO STENTS NEEDED H/O prior ablation treatment Cardiac Ablation for SVT Family History Grandmother (Maternal) Family history of diabetes mellitus Breast cancer Myocardial infarction Mother Family history of diabetes mellitus Breast cancer Hypertension Heart disease Grandfather (Paternal) Myocardial infarction Other No family history of adverse response to anesthesia Denies family history of Ovarian cancer Prostate cancer Colorectal cancer Social History Smoking Status: Never smoker Cigarettes Per Day: QUIT 2003; Second Hand Exposure: No; Do You Dip or Chew Tobacco: No; Hx Alcohol Use: No Hx Substance Use: Yes Prescribed Medications: Other Substance Use Type Other:: MARIJUANA SUPPOSITORY-NO MEDICAL MARIJUANA CARD-WILL REFRAIN Preferred Language: Mohawk Communication Ability: Effective Visual Impairment: No Limitations Branch Associate Required: No Beliefs That Will Affect Care: None marital status: Current Living Situation: Spouse current occupational status: employed current occupation: [employer] How many Children do You have: 1 Feels Safe at Home: Yes Childhood Exposure to Second-Hand Smoke: No Diet: diabetic and regular caffeine: Yes during the past year weight has: remained stable Dental Care, Regularly: No Physical Activity Frequency: Daily Seatbelt Use: always Sunscreen Use: No Assistive Devices: Glasses Review of Systems Review of Systems: All systems reviewed & are unremarkable except as noted in HPI & below Physical Exam Constitutional: WD/WN, vitals as above Eyes: PERRL, conjunctivae normal, anicteric sclerae ENMT: external ear and nose normal, oropharynx normal Neck: trachea midline, no thyromegaly Respiratory: normal respiratory effort, lungs clear to auscultation Cardiovascular: RRR, no murmur, no edema Chest (Breasts): Chest: normal inspection of chest Additional Comments: +TTP over left side of chest Gastrointestinal (Abdomen): Inspection/Auscultation: abdomen normal to inspection and normal bowel sounds; abdomen not distended Percussion/Palpation: + abdomen tender (epigastric region, no guarding or rebound) and abdomen soft Musculoskeletal: Extremities: extremities normal to inspection; no cyanosis and no clubbing Skin: no rashes, warm and dry Neurologic: moves all extremities and awake; no focal motor deficits Psychiatric: A+Ox3, euthymic affect Lymphatic: no lymphedema Results & Data Results & Data Vital Signs (Past 12 Hours) Vital Signs Temp Pulse Pulse Resp BP BP Pulse Ox 09/02/23 15:30 63 18 147/82 H 94 09/02/23 14:02 66 09/02/23 12:47 97 09/02/23 12:46 36.5 C 65 20 200/100 H 97 09/02/23 12:37 67 16 158/84 H 94 09/02/23 12:37 O2 Del Method 09/02/23 15:30 Room Air 09/02/23 14:02 09/02/23 12:47 09/02/23 12:46 Room Air 09/02/23 12:37 Room Air 09/02/23 12:37 Room Air Laboratory Results CBC, CMP, troponin, lipase,reviewed Diagnostic Findings CT Abd/pel and CTA Chest reviewed ECG Additional Comments: NSR normal rates, no ischemic changes Code Status & VTE Plan Code Status Full CODE VTE Prophylaxis Plan VTE Prophylaxis will be ordered: Yes PG Care Time/CCT Total # of Minutes Spent Total Time Spent with Patient: Total time spent is greater than 50% in coordination of care (as documented) at patient's floor/unit and/or counseling patient: Coding Level of Care Code 55751 INT INP/OBS CARE 375MIN Diagnoses Chest pain R07.9 Chest pain type: unspecified Tachycardia R00.0 Nausea R11.0 Primary hypertension I10 Hypertension type: primary hypertension Headache R51.9 Smoldering multiple myeloma D47.2 Type 2 diabetes mellitus with hyperglycemia, with long-term current use of insulin E11.65; Z79.4 Diabetes mellitus complication status: with hyperglycemia Diabetes mellitus [employer] insulin use: with superintendent [employer] use Diabetes mellitus type: type 2 Myofascial pain syndrome M79.18 BARNES (nonalcoholic steatohepatitis) K75.81 Chronic diarrhea K52.9 Diabetic peripheral neuropathy E11.42 (1) Chest pain Chest pain type: unspecified Qualified Code(s): R07.9 - Chest pain, unspecified (4) Hypertension Hypertension type: primary hypertension Qualified Code(s): I10 - Essential (primary) hypertension (7) Diabetes mellitus Diabetes mellitus complication status: with hyperglycemia Diabetes mellitus alf insulin use: with [employer] use Diabetes mellitus type: type 2 Qualified Code(s): E11.65 - Type 2 diabetes mellitus with hyperglycemia; Z79.4 - nursing home (current) use of insulin
[2023-09-02] MEDS: OPTIRAY 320 125ml IV ONE (15:57)
--- NOTE | 2023-09-02 16:25 | CT Scan Report ---
CT ANGIOGRAPHY OF THE CHEST, PULMONARY EMBOLUS PROTOCOL CLINICAL HISTORY: Shortness of breath. Evaluate for pulmonary embolus. COMPARISON STUDY: Head CT January 18, 2015. Chest radiograph performed earlier today. TECHNIQUE: Following IV administration of 118 mL of Optiray, helical axial images of the chest were o btained utilizing the pulmonary embolus protocol. Maximal intensity projections and sagittal and cor onal reformats were viewed on an independent 3D workstation. IV contrast was administered without co mplication. Automated exposure control was utilized for the study. A dose lowering technique was ut ilized adhering to the principles of ALARA. CT DOSE: 817.64 mGy.cm FINDINGS: No pulmonary emboli are identified. There is no thoracic aortic dissection. No pericardial effusion. Size of the heart is at the upper limits of normal. No pneumothorax or pleural effusion is present. There is no consolidation to suggest pneumonia. Scattered tiny calcified and noncalcified p ulmonary nodules are unchanged since CT of January 18, 2015. These are benign given stability. The l iver is cirrhotic. Upper abdominal varices and splenomegaly are better depicted on abdominal CT perfo rmed earlier today. IMPRESSION: 1. No pulmonary emboli identified. 2. No acute intrathoracic findings. ACT 112: Negative or not required by law. Electronically signed by: Jones Garcia M.D. 09/02/2023 4:24 PM
[2023-09-02] MEDS ORDERED: DICYCLOMINE HCL 10 MG CAP PO PRN (16:29)
[2023-09-02] MEDS ORDERED: POLYETHYLENE (MIRALAX) 17 GM PACK PO PRN (16:29)
[2023-09-02] MEDS ORDERED: MoRPHine SULFATE 2 MG/ML CARP IV PRN (16:29)
[2023-09-02] MEDS: oxyCODONE/ACETAMINOPHEN 5mg/325mg TAB PO PRN (18:34)
--- NOTE | 2023-09-02 18:43 | Electrocardiogram Report ---
Test Reason : Blood Pressure : / mmHG Vent. Rate : 069 BPM Atrial Rate : 069 BPM P-R Int : 170 ms QRS Dur : 080 ms QT Int : 394 ms P-R-T Axes : 028 009 012 degrees QTc Int : 422 ms Normal sinus rhythm Normal ECG When compared with ECG of 17-MAY-2017 07:33, No significant change was found Confirmed by Richar Camp ([id number]) on 09/02/2023 6:43:14 PM Referred By: Confirmed By:Richar Camp
[2023-09-02] MEDS ORDERED: GLUCOSE 10 TAB/TUBE PO PRN (20:22)
[2023-09-02] MEDS ORDERED: GLUCOSE 40% GEL 15 GM TUBE PO PRN (20:22)
[2023-09-02] MEDS ORDERED: CARBOHYDRATES FOR HYPOGLYCEMIA PO PRN (20:22)
[2023-09-02] MEDS ORDERED: GLUCAGON FOR INJ 1 MG VIAL SQ PRN (20:22)
[2023-09-02] MEDS ORDERED: DEXTROSE 50% 50 ML SYRINGE IV PRN (20:22)
[2023-09-02] MEDS ORDERED: LANTUS PER UNIT CHARGE SQ SCH (21:00)
[2023-09-02] MEDS: lisinopril 10 MG TAB PO SCH (21:56)
[2023-09-02] MEDS: PANTOprazole 40 MG TAB PO SCH (21:56)
[2023-09-02] MEDS: LANTUS PER UNIT CHARGE SQ SCH (21:57)
[2023-09-02] MEDS: SUCRALFATE 1 GM/10 ML UDC PO SCH (21:57)
[2023-09-02] MEDS: PREGABALIN 75 MG CAP PO SCH (21:57)
[2023-09-02] MEDS: INSULIN ASPART PER UNIT CHARGE SC SCH (21:58)
[2023-09-02 22:21] LABS: Troponin I High Sensitivity 3.3 pg/ml (0-14)
[2023-09-02 22:28] LABS: Thyroid Stimulating Hormone 4.104 uIu/ml (0.300-4.500)
[2023-09-03] MEDS: ONDANSETRON INJ 2 MG/ML 2 ML VIAL IV PRN (02:15)
[2023-09-03 06:24] LABS: Basophils # (auto) 0.02 K/uL (0.00-0.20); Basophils % (auto) 0.7 %; Eosinophils # (auto) 0.06 K/uL (0.00-0.50); Eosinophils % (auto) 2.1 %; Hematocrit (blood only) 34.7 % (37.0-47.0); Hemoglobin 11.7 g/dl (12.0-16.0); Immature Granulocytes # (auto) 0.01 K/uL (0.01-0.20); Immature Granulocytes % (auto) 0.3 %; Lymphocytes # (auto) 1.08 K/uL (1.20-3.40); Lymphocytes % (auto) 37.2 %; Mean Corpuscular Hemoglobin 29.7 pg (25.0-34.0); Mean Corpuscular Hgb Conc 33.7 g/dL (32.0-36.0); Mean Corpuscular Volume 88.1 fL (80.0-100.0); Mean Platelet Volume 10.4 fL (9.4-12.4); Monocytes # (auto) 0.27 K/uL (0.11-0.59); Monocytes % (auto) 9.3 %; Neutrophils # (auto) 1.46 K/uL (1.40-6.50); Neutrophils % (auto) 50.4 %; Platelet Count 61 K/uL (130-400); RDW Coefficient of Variation 13.2 % (11.5-14.5); RDW Standard Deviation 42.3 fL (36.4-46.3); Red Blood Count 3.94 M/uL (4.20-5.40)
[2023-09-03 06:25] LABS: Albumin Globulin Ratio 0.7 (0.9-2); BUN Creatinine Ratio 9.4 (10-20); Bilirubin,Total 0.6 mg/dl (0.2-1.0); Calcium 8.2 mg/dl (8.6-10.3); Creatinine Clr Calc Pharmacy 119.4 ml/min; Est GFR (African American) 117.9 ml/min; Est GFR (Non-African American) 101.8 ml/min; Globulin 4.4 gm/dl (2.5-4.0); Magnesium 1.6 mg/dl (1.7-2.4); Potassium 3.3 mmol/L (3.5-5.1); Total Protein 7.4 gm/dl (6.0-8.3)
[2023-09-03 06:30] LABS: Troponin I High Sensitivity 4.4 pg/ml (0-14)
[2023-09-03 07:31] LABS: Estimated Average Glucose 212 mg/dl
[2023-09-03] MEDS: MAGNESIUM OXIDE 400 MG TAB PO ONE (07:48)
[2023-09-03] MEDS: POTASSIUM CHLORIDE CRTAB 20 MEQ TABCR PO STA (07:48)
[2023-09-03] MEDS: ACETAMINOPHEN 325 MG TAB PO PRN (08:17)
[2023-09-03] MEDS ORDERED: PANTOprazole 40 MG TAB PO SCH (09:00)
[2023-09-03] MEDS ORDERED: DULoxetine HCL 20 MG CAP PO SCH (09:00)
--- NOTE | 2023-09-03 10:38 | Electrocardiogram Report ---
Test Reason : Blood Pressure : / mmHG Vent. Rate : 059 BPM Atrial Rate : 059 BPM P-R Int : 182 ms QRS Dur : 080 ms QT Int : 432 ms P-R-T Axes : 049 034 034 degrees QTc Int : 427 ms Sinus bradycardia Otherwise normal ECG When compared with ECG of 02-SEP-2023 12:50, No significant change was found Confirmed by Richar Camp ([id number]) on 09/03/2023 10:38:24 AM Referred By: REFERRED SELF Confirmed By:Richar Camp
--- NOTE | 2023-09-03 11:07 | Discharge Summary ---
Date of Service September 03, 2023 Admission HPI Per Admitting Provider This pt is a 63 yo female with a h/o DMII, multiple myeloma, chronic myofascial pain on opioids, BARNES cirrhosis with esophageal varices, depression/anxiety, SVT s/p ablation, and GERD who presents to the ER with left sided chest pressure that started this AM. She reports feeling extremely fatigued all weekend, taking naps, feeling very nauseated after starting Cymbalta for depression. She took 2 doses and then stopped it after symptoms started. She did not have a fever but sometimes had chills. She then developed left sided chest pressure as well as epigastric pain with radiation to left jaw and numbness in left arm and pain into left posterior head. SHe took her BP and HR at home and noted BP to be high at 170s/90s and HR was in the 160s at rest. She then did some deep breathing exercises and rechecked her vitals 30 min later-then BP remained high but not quite as high as before, and HR had returned to her normal in the 50s. She also checked her glucose and it was 312--> this came down to the 200s with giving herself insulin. Denies hematemesis, melena, hematochezia. She continues to have ongoing chest pressure for many hours today and no ECG changes, troponin neg x 1, Chest CTA and CXR in ER negative. Her posterior headache and left arm numbness resolved after being given morphine and Zofran in ER. She will be admitted on observation for further cardiac workup and monitoring for tachyarrhythmias. Principal Diagnosis Noncardiac chest pain Discharge Exam General: A&Ox3. NAD. Cooperative. HEENT: Atraumatic, normocephalic. vision/hearing grossly intact Pulm: CTAB A&P. -wheezes, -rales, -rhonchi. Symmetrical chest rise. No increased work of breathing. No respiratory distress. Cardiac: RRR, -mrg. Radial pulses intact and symmetrical. Abdominal: trace epigastric TTP otherwise nontender, nondistended, soft. BS present. Discharge Data Allergies Allergy/AdvReac Type Severity Reaction Status Date / Time Sulfa (Sulfonamide Allergy Severe SOB, Verified 05/08/23 08:03 Antibiotics) erythema ,TROUBLE SWALLOWING RASH cat dander Allergy Intermediate Congested Verified 05/08/23 08:03 latex Allergy Intermediate RASH, Verified 05/08/23 08:03 ITCHY NOSE, WATERY EYES. diltiazem Allergy Mild very sleepy Verified 05/08/23 08:03 lactic acid AdvReac Intermediate flu like Verified 05/08/23 08:03 symptoms adhesive AdvReac Mild TAPE-REDNES Verified 05/08/23 08:03 S Beta-Blockers AdvReac Mild makes pt Verified 05/08/23 08:03 (Beta-Adrenergic Bloc very sleepy Egg Derived AdvReac Mild occasionally Verified 05/08/23 08:03 has GI upset Consultations 09/02/23 15:08 ED Decision to Admit Stat Ordered Studies 09/02/23 13:15 CT abd pelvis IV con only Stat 09/02/23 15:33 CT angio chest PE protocol Stat Hospital Course (1) Chest pain: Rachel is a 63-year-old female who presented with atypical chest pain. No ischemic changes were found on EKG, troponins were normal, CTA was negative for PE. Low overall suspicion for cardiac etiology as she had multiple hours of the associated pain with a negative troponin and without EKG changes. Protonix was increased to twice daily. Patient did have epigastric tenderness which improved with Carafate. Her pain did improve with these treatments and did not recur the next day. She was however very concerned about some of the symptoms, and lightheadedness which began following duloxetine. This was discontinued. She was not having sx or chest pain at time of discharge. To do as outpatient: 1. Continue PPI twice daily rather than daily for 2 weeks, then return to daily dosing, follow-up with PCP 2. Discontinue duloxetine 3. Follow-up with PCP. No arrhythmia was seen on overnight telemetry. Recurrent tachycardia could have outpatient Holter arranged. Chest pain Constant pain of multiple hours, and troponin neg x 2 thus far, ECG NSR and no ischemic changes, CXR neg, CTA Chest neg - Radiates to left arm and left jaw. +TTP on exam, could be some MSK component, but seems more likely GI related. No melena or hematochezia, no vomiting/hematemesis - Doubt cardiac given pain ongoing for many hours with troponin normal, normal ekg, and normal echo - tx Carafate 1 gram qid and increase home Protonix to 40mg po bid in case of gastritis/reflux - Improve BP control-she was not taking lisinopril 10mg bid like it was prescribed and was only taking it once daily--> increase to 10mg bid. BP normal 09/02 Control nausea with IV ZOfran while inpt (2) Tachycardia: Reported HR at home in the 160s on home BP cuff, went away to the 50s after deep breathing. Was associated with onset of her chest pressure has a h/o SVT ablation Monitor on tele She cannot tolerate beta blockers in the past as per review of records-has been on Nadolol, Coreg, and propranolol--> all cause fatigue TSH was normal No arrhythmia on overnight telemetry (3) Nausea: Possibly worsened this weekend after starting duloxetine which caused profound fatigue and nausea Stopped duloxetine antiemetics as needed (4) Hypertension: Increase lisinopril to 10mg bid (was only taking once daily at home) BP normotensive at time of discharge (5) Headache: has a h/o migraines which largely resolved (6) Smoldering multiple myeloma: follows with [facility] not on treatment Continue outpatient follow-up (7) Diabetes mellitus: continue home Lantus and add Novolog SSI check A1C ADA diet (8) Myofascial pain syndrome: Continue home oxycodone, Lyrica Has chronic pain all over entire body from multiple myeloma (9) BARNES (nonalcoholic steatohepatitis): stable, follows with GI, with h/o esophageal varices w/ banding Last EGD 04/2023 with post-banding scar lower third esophagus, no residual varices, and w/ portal hypertensive gastropathy (10) Chronic diarrhea: noted (11) Diabetic peripheral neuropathy: Continue Lyrica Plan DVT proph-SCDs Total Time Total Time Spent Total Time Spent (In Minutes): Time spend day of discharge 45 minutes including direct patient care, documentation, review of labs and images, and coordination of care. Discharge Plan Discharge Items Patient Disposition: Home - Self-Care Reason For Visit: CHEST PAIN Discharge Diagnosis: Non-cardiac chest pain Activity: Resume your previous activity Non-emergency contact: Primary Care Provider Call non-emergency contact if: you have any medication questions, your symptoms worsen and your pain is not controlled Follow-up/Referrals: Miriam Livingston CRNP [Primary Care Provider] - 09/06/23 10:30 am Diet: Carb Consistent or DM2 Addtl Attending Provider Instructions: You were seen in the hospital for chest pain. Your cardiac evaluation was normal. Your troponin, heart markers, were not elevated. Your EKG did not show any concerning findings. An ultrasound of your heart did not show evidence of heart abnormalities. Your pain improved with reflux treatment. Your dizziness may have been due to duloxetine.Please STOP taking duloxetine on discharge. Please take your lisinopril 10 mg twice daily. You may hold this if your blood pressure at home is less than 110, and contact your primary care provider for recommendations If you develop any new or worsening symptoms including fever, chills, sweats, chest pain, chest pressure, difficulty breathing, uncontrolled nausea/vomiting, rash, wheezing, passing out or nearly passing out, bleeding, black/bloody bowel movements, or other new or concerning symptoms please call your primary care physician, or call 911 for re-evaluation in the emergency department if you are very concerned. A followup appointment is being scheduled for you with your PCP. You should receive a call to confirm this appointment. If you do not receive a call within 48 hours to confirm this appointment, or need to change this appointment, please call the provider's office. Pending Studies at Discharge: No Stand-Alone Forms: My [facility] [employer], Smoking Cessation Medications and DC Order Prescriptions: Continued (DME) pen needle, diabetic [1st Tier Unifine Pentips] 31 gauge x 5/16" needle See Dose Instructions .ROUTE .MEDSUPPLY Qty: 100 5RF Rx Instructions: use twice daily with insulin Dx:E11.9 lisinopril 10 mg tablet 10 mg PO BID Qty: 180 3RF dicyclomine 10 mg capsule 10 mg PO UD PRN (Reason: Abdominal Discomfort) Rx Instructions: original: 10 mg po hs prn unable to verify ondansetron HCl 4 mg tablet 4 mg PO Q8H PRN (Reason: Nausea) Will Burst CBD Gummies 1 piece PO HS Rx Instructions: otc unable to verify bismuth subsalicylate [Pepto-Bismol] 262 mg/15 mL suspension 524 mg PO QID PRN (Reason: Abdominal Discomfort) (DME) OneTouch Ultra Test Strip See Rx Instructions .Route Qty: 300 3RF Rx Instructions: test twice a day pantoprazole 40 mg tablet,delayed release (DR/EC) 40 mg PO QAM pregabalin 75 mg capsule 75 mg PO TID Qty: 90 4RF Rx Instructions: pt aware dose increase oxycodone-acetaminophen 5-325 mg tablet 1 tab PO Q8H PRN (Reason: pain) Qty: 90 0RF Patient Comments: took 1/2 this am insulin glargine [Lantus Solostar U-100 Insulin] 100 unit/mL (3 mL) insulin pen 20 unit SUBCUT BID Discharge Orders: Discharge Order (Routine); Ordered 09/03/23 Ordered By: Tien Piña Admission Data Admit Date/Time: 09/02/23 15:49 Attending Provider: Tien Piña Admit Provider: Adwoa Neville Primary Care Provider: Miriam Livingston Other Providers: Adwoa Neville Other Interventions: Discharge Summary Assessment (RN) Last Done: 09/03/23 12:39 Coding Level of Care Code 89446 INP/OBS DISCH >30 MIN Diagnoses Chest pain R07.9 Chest pain type: unspecified Tachycardia R00.0 Nausea R11.0 Primary hypertension I10 Hypertension type: primary hypertension Headache R51.9 Smoldering multiple myeloma D47.2 Type 2 diabetes mellitus with hyperglycemia, with long-term current use of insulin E11.65; Z79.4 Diabetes mellitus complication status: with hyperglycemia Diabetes mellitus intermediate manager insulin use: with intermediate manager use Diabetes mellitus type: type 2 Myofascial pain syndrome M79.18 BARNES (nonalcoholic steatohepatitis) K75.81 Chronic diarrhea K52.9 Diabetic peripheral neuropathy E11.42
--- NOTE | 2023-09-03 11:10 | XCELERA ---
[id number] [id number]
== END 2023-09-03 12:55 | disposition home or self-care (01) ==
LOC: SUATTDRO → ED 12:36 → EDINP 12:36 → SUATTDRO 15:49 → 2E 09-03 02:33